=== PATIENT | male | born 1940 | race Caucasian/White ===

== ENCOUNTER 2016-07-14 09:03 | Inpatient (IN) | payer MEDICARE, MEDICAID ==
[~2016-07-14] VITALS: Ht 170.2 cm; Wt 90.4 kg
[2016-07-14] MEDS: FINASTERIDE 5 MG TAB PO SCH (09:00)
[2016-07-14] MEDS: ATENOLOL 50 MG TAB PO SCH (09:00)
[2016-07-14] MEDS: PANTOPRAZOLE 40MG TAB (PROTONIX) PO SCH (09:00)
[2016-07-14] MEDS: LOSARTAN 50 MG TAB PO SCH (09:00)
[~2016-07-14 09:03] MED LIST: ALBU17IN INH; ASPI81TA PO; ATEN50TA2 PO; ATOR1TAB21 PO; ATOR40TA PO; FENO160T10 PO; FENO48TA2 PO; INSUDET SC; LEVE1INJ5 SC; LOSA100T37 PO; NEXI40CA PO; NICOTINE 14 MG/24 HR TRANSDERMAL TD SCH; ONGL1TAB9 PO; RANI150T PO; VITA50003 PO; VITAE20CA PO
[2016-07-14] MEDS ORDERED: IPRATROPIUM 0.5MG/ALBUTEROL 2.5MG INH SOL UD 3ML (DUONEB)(J7620) As Ordered ONE (09:31)
[2016-07-14] MEDS ORDERED: ALBUTEROL SULFATE 2.5 MG/0.5 ML INH NEB SOLN As Ordered ONE ×2 (09:31→23:41)
[2016-07-14 09:52] LABS: ABG BASE EXCESS -2.1 (-2.0-2.0); ABG DEVICE NASAL CANN; ABG PARTIAL PRESSURE CO2 34.8 mmHg (35.0-45.0); ABG PARTIAL PRESSURE O2 81.6 mmHg (75.0-100.0); ABG STANDARD HCO3 22.7 MEQ/L (22.0-26.0); ABG TOTAL CO2 23.1 MEQ/L (23.0-31.0); ABG pH (ARTERIAL) 7.419 UNITS (7.350-7.450)
[2016-07-14 10:01] LABS: BASO % 0.6 % (0.0-1.0); EOS % 0.3 % (0.0-3.0); LARGE UNSTAINED CELL # 0.2 K/mm3 (0.0-0.4); LARGE UNSTAINED CELL % 2.1 % (0.0-4.0); LYMPH # 0.8 K/mm3 (1.5-4.5); LYMPH % 10.3 % (24.0-44.0); MEAN CORPUSCULAR HEMOGLOBIN 31.6 pg (27.0-33.0); MEAN CORPUSCULAR HGB CONC 35.7 g/dl (32.0-36.5); MEAN CORPUSCULAR VOLUME 88.7 fl (80.0-96.0); MONO # 0.3 K/mm3 (0.0-0.8); NEUTROPHILS # 6.6 K/mm3 (1.8-7.7); NEUTROPHILS % 82.8 % (36.0-66.0); PLATELET COUNT, AUTOMATED 323 k/mm3 (150-450); RED CELL DISTRIBUTION WIDTH 14.5 % (11.5-14.5)
[2016-07-14 10:18] LABS: ALBUMIN 3.3 GM/DL (3.2-5.2); ALBUMIN/GLOBULIN RATIO 0.97 (1.00-1.93); BILIRUBIN,DIRECT 0.3 MG/DL (0.0-0.2); BILIRUBIN,TOTAL 0.8 MG/DL (0.2-1.0); CALCIUM LEVEL 8.5 MG/DL (8.8-10.2); CREATININE FOR GFR 1.35 MG/DL (0.70-1.30); GLOMERULAR FILTRATION RATE 54.8 (>42); POTASSIUM SERUM 4.6 MEQ/L (3.5-5.1); TOTAL PROTEIN 6.7 GM/DL (6.4-8.2)
--- NOTE | 2016-07-14 10:19 | REP ---
Portable chest x-ray: Sitting AP view. History: Shortness of breath. Comparison study: June 16, 2016. Findings: There is a extensive perihilar infiltrate pattern in the left lung. Heart is mildly prominent unchanged. No pleural effusion is seen. There is slight cephalization of the pulmonary vasculature. Impression: Fairly dense and extensive left perihilar infiltrate, probable pneumonia. Asymmetric pulmonary edema is considered a less likely possibility. Signed by Abe Lee MD 07/14/2016 10:24 A
[2016-07-14] MEDS ORDERED: ASPIRIN 81 MG CHEW TABLET As Ordered ONE (10:31)
[2016-07-14] MEDS ORDERED: FUROSEMIDE 20 MG/2 ML VIAL (J1940) As Ordered ONE (10:31)
[2016-07-14] MEDS ORDERED: MOXIFLOXACIN 400 MG/250 ML IV BAG (AVELOX) (J2280) As Ordered ONE (10:31)
[2016-07-14 11:01] LABS: INR 1.04
[2016-07-14] MEDS ORDERED: ASPI81CH3 PO (11:15)
[2016-07-14] MEDS ORDERED: SPIR1CAP INH (11:15)
[2016-07-14] MEDS ORDERED: ATOR1TAB21 PO (11:15)
[2016-07-14] MEDS ORDERED: FINA5TAB2 PO (11:15)
[2016-07-14] MEDS ORDERED: LOSA100T37 PO (11:15)
[2016-07-14] MEDS ORDERED: ADV250INH INH (11:15)
[2016-07-14] MEDS ORDERED: VITA100066 PO (11:15)
[2016-07-14] MEDS ORDERED: LEVE1INJ5 SC ×2 (11:46)
[2016-07-14] MEDS ORDERED: METF500T PO (11:46)
[2016-07-14] MEDS ORDERED: DRIS50002 PO (11:48)
[2016-07-14] MEDS ORDERED: NITROGLYCERIN 0.4 MG SUBL TABLET SL PRN (13:15)
[2016-07-14] MEDS ORDERED: DEXTROSE 50% 50 ML SYRINGE IV PRN (13:15)
[2016-07-14] MEDS ORDERED: GLUCOSE 4 GM CHEW TABLET PO PRN (13:15)
[2016-07-14] MEDS ORDERED: GLUCAGON FOR INJ 1 MG VIAL (J1610) SC PRN (13:15)
[2016-07-14] MEDS ORDERED: ACETAMINOPHEN 500 MG TAB PO PRN (13:15)
[2016-07-14] MEDS ORDERED: NS 1,000 ML IV SCH (13:45)
--- NOTE | 2016-07-14 13:57 | CR ---
DATE OF CONSULTATION: 07/14/2016 REFERRING PHYSICIANS: Irene Hebert MD, and YASEMIN Law INDICATION: Acute myocardial infarction. HISTORY OF PRESENT ILLNESS: Mr. Zambrano is known to me. He is a 75-year-old man who was actually discharged from my practice earlier this year because of noncompliance and inability to keep followup office visits. He does not have a history of established coronary artery disease, though. The patient tells me that he has not been feeling well for about 4 or 5 days. He felt that he was more short of breath, had cold chills, and was diaphoretic, and eventually last night developed episode of heavy chest discomfort that was retrosternal and also left from the sternum without obvious radiation. It was present on and off for about an hour and associated with significant dyspnea. During the night, though , he could not sleep. He was coughing. He was nauseated at times; and eventually in the morning hours, on top of everything, he ran out of oxygen. Eventually, he was brought by family after previously refused to come last night. On the initial evaluation, he was quite hypoxic, but he quickly improved with administration of oxygen by nasal cannula. The chest x-ray was suggestive of left upper lobe infiltrate and also some degree of vascular distribution. His brain natriuretic peptide (BNP) was mildly elevated, and his troponin was also elevated at 2.87 with total CK 228 and CK-MB 8.0. Interventional cardiology in [facility] was contacted, but they turned the patient down because of concomitant pneumonia, hyponatremia, and renal insufficiency. At the time of my evaluation, the patient tells me that he is not feeling well, but he is feeling much better compared to previously. He already received aspirin, single dose of intravenous (IV) Lasix, and antibiotics. He is laying flat in the emergency room (ER) bed. Denies any chest discomfort since last night. Continues to feel short of breath and reports feeling "not well." He cannot further specify. PAST MEDICAL HISTORY: 1. Hypertension. 2. Dyslipidemia. 3. Type 2 diabetes. 4. Longstanding history of chest discomfort. He underwent nuclear stress test in 2012 and then again in September 2015. Both times, it was negative for ischemia. He subsequently was lost to followup due to his noncompliance. 5. Chronic obstructive pulmonary disease (COPD). OUTPATIENT MEDICATIONS: According to our records, he was taking: - aspirin 81 a day - atenolol 50 a day - Lipitor 40 a day - insulin - losartan/hydrochlorothiazide 100/25 - proton pump inhibitor (PPI) - Proventil - Onglyza He does not have his medications on him, so I am not certain whether this is completely accurate. He reports allergies to PENICILLIN which gives him hives, and ANGIOTENSIN-CONVERTING ENZYME ([place]) INHIBITORS made him cough. SURGICAL HISTORY: Is positive for appendectomy and cataract surgery. FAMILY HISTORY: Father in his 70s of myocardial infarction. His son has migraines, and mother young of leukemia. SOCIAL HISTORY: The patient is father of four children, and one of his daughters is at bedside. He is retired and but has significant other. He has been a heavy smoker, 1-2 packs a day for years. On the review of systems, there is no recent fever, but he did have chills and sweats. He also has had mostly nonproductive cough. Chest discomfort was present last night but not since. He also reports some nausea but no thanh vomiting. No diarrhea. No abdominal pain. No syncopal events. No peripheral edema. He does report recent episodes of syncope, though. He also needs a walker for ambulation due to generalized weakness. PHYSICAL EXAMINATION: Mr. Lawson Zambrano is an elderly man who appears at least his age. He does not appear to be in any distress. Blood pressure was 130/65, heart rate in the 60s. He was afebrile. Saturation was in low 90s on oxygen by nasal cannula. His jugular venous pressure (JVP) does not appear elevated. His lungs are surprisingly clear to auscultation. I do not appreciate any crackles, rhonchi, or wheezing, and the air movement is decent. Heart examination: Somewhat muffled heart sound due to his COPD. No murmur, rub, or gallop is appreciated. Abdomen is obese but soft and nontender. No organomegaly. There is no peripheral edema. His peripheral pulses are very poor. Neurologically, he seems alert and oriented and mostly appropriate. I do not appreciate any focal weakness. 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 He has normal liver function tests. CK and CK-MB as per history of present illness (HPI). His BNP was 576 and albumin was 3.3. CBC reveals WBC count 8.0, hemoglobin 8.4, hematocrit 23.5, and platelet count 323. INR is 1.0. Electrocardiogram (ECG) reveals presence of sinus rhythm with first-degree AV block, possible old inferior wall myocardial infarction, and no ST-T shift. Chest x-ray reveals borderline cardiomegaly. There is an infiltrate in left upper lobe, and I suspect this could be actually an atypical manifestation of pulmonary edema because there is a vascular distribution. No pleural effusions. ASSESSMENT AND PLAN: Mr. Zambrano is a 75-year-old man who has numerous risk factors for coronary artery disease (CAD), including hypertension, type 2 diabetes, hyperlipidemia, and longstanding history of smoking, who presents with [id number] myocardial infarction. But he is also significantly anemic. There is underlying renal insufficiency and hyponatremia. Interventional cardiology was contacted, but they felt that the patient is to be first medically stabilized before coronary angiogram can be performed. He already received aspirin, and I would give him additional doses for total 325 mg daily. I also recommend anticoagulation. Probably Lovenox is the most appropriate choice here. I do not recommend administration of Plavix due to severe anemia; and even though his stools are guaiac negative, I am afraid that the risk of bleeding is quite high. Also, there is a possibility that he may need open heart surgery. He is currently pain-free. Provided there is a recurrence of chest discomfort, this can be reconsidered, and Plavix can be administered together with PPIs. I would continue current dose of beta faith. It appears that his blood pressure and heart rate are well-controlled. He received 20 mg of Lasix intravenous (IV), and his lungs at this point are clear. I do not appreciate any obvious congestive heart failure by physical examination now, but I cannot rule out that he was in heart failure when he presented to the ER. This all represents fairly high risk features, and I think a coronary angiogram will follow provided he does not drop his hemoglobin more, and there will be any evolution clinically that is unfavorable. As far as hyponatremia is concerned, is known to be chronic. 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 Apparently, he was reporting drinking more than 30 cups of coffee a day. In any case, it should be pointed out that he should not be given any thiazide diuretics. As far as the anemia is concerned, the etiology is unclear. He has guaiac-negative stools. He denies any history of bleeding. He has iron studies from April that revealed relatively mild iron deficiency. At this point, the preference is to make sure he remains stable. Further evaluation can be accomplished later. PPI to be administered. He has been on high-dose statin, and this should be continued. The patient remains seriously ill, and his prognosis is guarded. I had a long discussion with him and his daughter. Even though we formally discharged the patient from our care, I provide emergency care over the weekend. ANGELA
[2016-07-14] MEDS: methylPREDNISolone INJ 125 MG/2 ML VIAL (J2930) IV SCH ×2 (16:00→23:27)
[2016-07-14] MEDS ORDERED: PANTOPRAZOLE 40MG TAB (PROTONIX) As Ordered ONE (16:50)
[2016-07-14] MEDS ORDERED: methylPREDNISolone INJ 125 MG/2 ML VIAL (J2930) As Ordered ONE ×2 (16:50→23:25)
[2016-07-14] MEDS: HumaLOG INSULIN (NovoLOG) PER UNIT SC SCH ×2 (17:30→20:49)
--- NOTE | 2016-07-14 19:13 | ECGEPIP ---
Stationary ECG Study [facility] [place] - ED Test Date: 2016-07-14 Pat Name: TAMIA AUGUSTIN Department: Room: - Gender: M Grinder: lindsay : 1940 Requested By: Irene Hebert Order Number: [id number] Reading MD: Albert Viramontes Measurements Intervals [place] Rate: 81 P: 16 CO: 219 QRS: -7 QRSD: 98 T: 33 QT: 353 QTc: 412 Interpretive Statements SINUS RHYTHM WITH FIRST DEGREE AV BLOCK NONSPECIFIC ST & T-WAVE ABNORMALITY SIMILAR TO 06/16/16 Electronically Signed On 07-14-2016 19:13:02 EST by Albert Viramontes
[2016-07-14 20:00] VITALS: BP 144/78
[2016-07-14] MEDS: IPRATROPIUM 0.5MG/ALBUTEROL 2.5MG INH SOL UD 3ML (DUONEB)(J7620) NEB SCH (20:00)
[2016-07-14] MEDS ORDERED: ATORVASTATIN 20 MG TAB As Ordered ONE (20:43)
[2016-07-14] MEDS ORDERED: LEVEMIR (INSULIN DETEMIR) 1 UNITS/0.01ML As Ordered ONE (20:44)
[2016-07-14] MEDS ORDERED: HumaLOG INSULIN (NovoLOG) PER UNIT As Ordered ONE (20:45)
[2016-07-14] MEDS: raNITIdine SYRUP 150 MG/10 ML UDC PO SCH (20:48)
[2016-07-14] MEDS: LEVEMIR (INSULIN DETEMIR) 1 UNITS/0.01ML SC SCH (20:49)
[2016-07-14] MEDS: CEPACOL LOZENGE PO PRN (20:49)
[2016-07-14] MEDS: ADVAIR DISKUS 250/50 INH PWD INH SCH (20:56)
[2016-07-14] MEDS ORDERED: ATORVASTATIN 20 MG TAB PO SCH (21:00)
[2016-07-14] MEDS: ALBUTEROL SULFATE 2.5 MG/0.5 ML INH NEB SOLN NEB PRN (23:52)
[2016-07-14 23:54] VITALS: O2SAT 96
[2016-07-15] VITALS (25 sets, daily range): BP systolic 115–186; BP diastolic 58–91; O2SAT 96
[2016-07-15] MEDS: IPRATROPIUM 0.5MG/ALBUTEROL 2.5MG INH SOL UD 3ML (DUONEB)(J7620) NEB SCH ×4 (02:00→19:50)
[2016-07-15] MEDS ORDERED: ALBUTEROL SULFATE 2.5 MG/0.5 ML INH NEB SOLN As Ordered ONE (03:57)
[2016-07-15] MEDS: ALBUTEROL SULFATE 2.5 MG/0.5 ML INH NEB SOLN NEB PRN ×2 (04:01→17:06)
[2016-07-15] MEDS ORDERED: ENOXAPARIN 100MG/1ML SYRINGE (J1650) As Ordered ONE (04:57)
[2016-07-15] MEDS ORDERED: METOPROLOL SUCC *XL* 25MG TAB (TopROL *XL*) As Ordered ONE (04:57)
[2016-07-15] MEDS ORDERED: METOPROLOL SUCC *XL* 25MG TAB (TopROL *XL*) PO ONE (05:00)
[2016-07-15] MEDS: ENOXAPARIN 100MG/1ML SYRINGE (J1650) SC SCH ×2 (05:01→18:01)
[2016-07-15] MEDS: HumaLOG INSULIN (NovoLOG) PER UNIT SC SCH ×4 (07:30→20:59)
[2016-07-15 07:40] LABS: BASO % 0.4 % (0.0-1.0); EOS % 0.3 % (0.0-3.0); LARGE UNSTAINED CELL % 0.7 % (0.0-4.0); LYMPH # 0.5 K/mm3 (1.5-4.5); LYMPH % 8.8 % (24.0-44.0); MEAN CORPUSCULAR HEMOGLOBIN 30.3 pg (27.0-33.0); MEAN CORPUSCULAR HGB CONC 34.6 g/dl (32.0-36.5); MEAN CORPUSCULAR VOLUME 87.8 fl (80.0-96.0); MONO # 0.2 K/mm3 (0.0-0.8); MONO % 3.8 % (0.0-5.0); NEUTROPHILS # 4.4 K/mm3 (1.8-7.7); PLATELET COUNT, AUTOMATED 290 k/mm3 (150-450); RED CELL DISTRIBUTION WIDTH 15.5 % (11.5-14.5); WHITE BLOOD COUNT 5.1 K/mm3 (4.0-10.0)
[2016-07-15] MEDS ORDERED: methylPREDNISolone INJ 125 MG/2 ML VIAL (J2930) As Ordered ONE (07:40)
[2016-07-15] MEDS ORDERED: HumaLOG INSULIN (NovoLOG) PER UNIT As Ordered ONE ×3 (07:41→15:15)
[2016-07-15] MEDS: methylPREDNISolone INJ 125 MG/2 ML VIAL (J2930) IV SCH ×2 (07:50→20:03)
[2016-07-15 08:07] LABS: ALBUMIN/GLOBULIN RATIO 0.91 (1.00-1.93); BILIRUBIN,TOTAL 0.6 MG/DL (0.2-1.0); CALCIUM LEVEL 8.2 MG/DL (8.8-10.2); CREATININE FOR GFR 1.54 MG/DL (0.70-1.30); GLOMERULAR FILTRATION RATE 47.1 (>42); MAGNESIUM LEVEL 1.8 MG/DL (1.8-2.4); POTASSIUM SERUM 4.7 MEQ/L (3.5-5.1); TOTAL PROTEIN 6.3 GM/DL (6.4-8.2)
[2016-07-15] MEDS ORDERED: IPRATROPIUM 0.5MG/ALBUTEROL 2.5MG INH SOL UD 3ML (DUONEB)(J7620) As Ordered ONE ×2 (08:09→14:01)
[2016-07-15] MEDS: ADVAIR DISKUS 250/50 INH PWD INH SCH ×2 (08:12→21:00)
[2016-07-15] MEDS ORDERED: LEVEMIR (INSULIN DETEMIR) 1 UNITS/0.01ML SC SCH (09:00)
[2016-07-15] MEDS ORDERED: PANTOPRAZOLE 40MG TAB (PROTONIX) As Ordered ONE (09:31)
[2016-07-15] MEDS ORDERED: ASPIRIN 325 MG TAB As Ordered ONE (09:32)
[2016-07-15] MEDS ORDERED: LEVEMIR (INSULIN DETEMIR) 1 UNITS/0.01ML As Ordered ONE (09:33)
[2016-07-15] MEDS: ASPIRIN 325 MG TAB PO SCH (09:36)
[2016-07-15] MEDS: ATENOLOL 50 MG TAB PO SCH (09:36)
[2016-07-15] MEDS: FINASTERIDE 5 MG TAB PO SCH (09:36)
[2016-07-15] MEDS: LOSARTAN 50 MG TAB PO SCH (09:36)
[2016-07-15] MEDS: PANTOPRAZOLE 40MG TAB (PROTONIX) PO SCH (09:36)
[2016-07-15] MEDS: raNITIdine SYRUP 150 MG/10 ML UDC PO SCH ×2 (09:36→21:14)
[2016-07-15] MEDS ORDERED: MOXIFLOXACIN 400 MG/250 ML IV BAG (AVELOX) (J2280) As Ordered ONE (09:38)
[2016-07-15] MEDS: MOXIFLOXACIN HCL 400 MG in APPROPRIATE DILUENT 1 EA IV SCH (09:39)
[2016-07-15] MEDS ORDERED: FUROSEMIDE 40 MG/4 ML VIAL (J1940) IV ONE ×3 (11:15→19:15)
--- NOTE | 2016-07-15 11:16 | IPNPDOC ---
Assessment/Plan Date Seen The patient was seen on 07/15/16. Family Medicine Attending Note: Patient seen, examined, and d/w YASEMIN Black. Patient states he feels fairly well this morning except for some wheezing and he would like to have a fan blowing on his face. He denies SOB, chest pain , or abdominal pain. He had a BM this morning that was not bloody and not dark/ tarry - this was confirmed by his nurse. Patient appears fairly well but has multiple laboratory abnormalities - Hgb is trending down today with no obvious source of bleeding; BMs are nonbloody and abdominal exam is normal. Will give 2U pRBCs and recheck CBC tomorrow morning. Per Cardiology, will give lasix between units of blood. Hyponatremia persists and is a bit worse than yesterday - will increase rate of NS after blood is completed. Hyponatremia has been chronic since at least April with max sodium of 126 - will need to increase Na slowly and may need to do further investigation to determine cause of hyponatremia when he is more stable. He is receiving moxifloxacin for pneumonia; 1/2 blood cultures were positive for GPR which may be contaminate. Continue antibiotics and recheck blood cultures. (KES). Problems Problems: (1) NSTEMI (non-ST elevated myocardial infarction) Status: Acute Discussed With: Administrative Assistant Problem Specific Plan: Monitor Clinically, Repeat Labs Problem Text: Dr Duran is seeing the pt, recommends adjusting beta faith, will start Metoprolol tartrate 25 mg po Q6h with hold parameters. Cont with ASA 325 mg, Lovenox 100 mg BID, Lipitor (will change to High dose). [facility] has been contacted, recommend stabilizing pt prior to transfer. (2) Pneumonia Status: Acute Response to Treatment: Stable Problem Specific Plan: Monitor Clinically Problem Text: ON IV avelox D2, cont with nebs 1/2 blood cultures positive for gram positive rods. (3) Acute blood loss anemia Status: Acute Response to Treatment: Stable Problem Specific Plan: Monitor Clinically, Repeat Labs Problem Text: Hgb 7.2, consent obtained for transfusion, will transfuse 2 units PRBCs given Lasix IV 40 mg between units. (4) Hyponatremia Status: Acute Response to Treatment: Uncontrolled Problem Specific Plan: Monitor Clinically Problem Text: Will increase IVF rate due to failure of this to improve. (5) HTN (hypertension) Status: Chronic Response to Treatment: Stable Problem Specific Plan: Monitor Clinically Problem Text: Controlled on current medication regimen. (6) DM2 (diabetes mellitus, type 2) Status: Chronic Response to Treatment: Stable Problem Specific Plan: Monitor Clinically Problem Text: BS persistently high in 300s - 400s; this may be due to acute infection. If they continue to remain high, we may need to increase his dose of levemir. (7) Nicotine dependence Status: Chronic Problem Specific Plan: Monitor Clinically Problem Text: Enc cessation. (8) COPD (chronic obstructive pulmonary disease) Status: Chronic Response to Treatment: Stable Problem Specific Plan: Monitor Clinically Problem Text: Advair, nebs. (9) Positive blood culture Status: Acute Problem Text: 1/2 blood cultures positive for gram positive rods - could be contaminate. WBCs stable and no fevers overnight. - Recheck blood cultures - Continue avelox Plan / VTE VTE Prophylaxis Ordered?: Yes Subjective Review of Systems CC/HPI Pt without new concerns. His and dgt in law are at bedside. Constitutional: Reports: Chills, Denies: Fever ENT: Denies: Head Aches Pulmonary: Reports: Cough (occ sputum production), Dyspnea Cardiovascular: Reports: Chest Pain (worse with coughing), Denies: Palpitations Gastrointestinal: Denies: Diarrhea, Nausea, Vomiting Neurological: Reports: Weakness Psych: Reports: Mood Normal Objective Physical Examination General Exam: Positive: Alert, No Acute Distress ENT Exam: Positive: Mucous membr. moist/pink Chest Exam: Positive: Rhonchi (diminished throughout) Heart Exam: Positive: Rate Normal, Negative: Murmurs Abdomen Exam: Positive: Normal bowel sounds, Soft, Negative: Tenderness Extremity Exam: Negative: Edema Vital Signs/I&O Vital Signs Date Time Temp Pulse Resp B/P Pulse Ox O2 Delivery O2 Flow Rate FiO2 07/15/16 09:36 115/78 07/15/16 09:36 100 07/15/16 07:50 96.9 22 94 Nasal Cannula 2.0 I&O- Last 24 Hours up to 6 AM 07/15/16 06:00 Intake Total 240 ml Output Total 1000 ml Balance -760 ml Laboratory Data Labs 24H Laboratory Tests 2 07/14/16 13:58: Creatine Kinase MB 8.1H, Creatine Kinase MB Relative Index 3.76, Total Creatine Kinase 215, Troponin I 4.09#*H 07/14/16 20:39: Bedside Glucose (Misc Panel) 416H 07/14/16 20:44: Creatine Kinase MB 8.6H, Creatine Kinase MB Relative Index 3.78, Total Creatine Kinase 227, Troponin I 2.49#*H 07/14/16 23:10: Bedside Glucose (Misc Panel) 411H 07/15/16 07:20: Bedside Glucose (Misc Panel) 371H 07/15/16 07:28: Blood Urea Nitrogen 43H, Creatinine 1.54H, Sodium Level 122L, Potassium Level 4.7, Chloride Level 88L, Carbon Dioxide Level 21, Calcium Level 8.2L, Aspartate Amino Transf (AST/SGOT) 22, Alanine Aminotransferase (ALT/SGPT) 27, Total Creatine Kinase 242, Alkaline Phosphatase 47, Total Bilirubin 0.6, Total Protein 6.3L, Albumin 3.0L, Albumin/Globulin Ratio 0.91L, Anion Gap 13, White Blood Count 5.1, Red Blood Count 2.38L, Hemoglobin 7.2L, Hematocrit 20.9L, Mean Corpuscular Volume 87.8, Mean Corpuscular Hemoglobin 30.3, Mean Corpuscular Hemoglobin Concent 34.6, Red Cell Distribution Width 15.5H, Platelet Count 290, Neutrophils (%) (Auto) 86.0H, Lymphocytes (%) (Auto) 8.8L, Monocytes (%) (Auto) 3.8, Eosinophils (%) (Auto) 0.3, Basophils (%) (Auto) 0.4, Neutrophils # (Auto) 4.4, Lymphocytes # (Auto) 0.5L, Monocytes # (Auto) 0.2, Eosinophils # (Auto) 0.0 , Basophils # (Auto) 0.0, Creatine Kinase MB 10.6H, Creatine Kinase MB Relative Index 4.38H, Glomerular Filtration Rate 47.1, Large Unclassified Cells # 0.0, Large Unclassified Cells % 0.7, Magnesium Level 1.8, Troponin I 2.23*H CBC/BMP Laboratory Tests 07/15/16 07:28 Calcium Level 8.2 L, Aspartate Amino Transf (AST/SGOT) 22, Alanine Aminotransferase (ALT/SGPT) 27, Total Creatine Kinase 242, Alkaline Phosphatase 47, Total Bilirubin 0.6, Total Protein 6.3 L, Albumin 3.0 L, Red Blood Count 2.38 L, Mean Corpuscular Volume 87.8, Mean Corpuscular Hemoglobin 30.3, Mean Corpuscular Hemoglobin Concent 34.6, Red Cell Distribution Width 15.5 H, Neutrophils (%) (Auto) 86.0 H, Lymphocytes (%) (Auto) 8.8 L, Monocytes (%) (Auto ) 3.8, Eosinophils (%) (Auto) 0.3, Basophils (%) (Auto) 0.4, Neutrophils # (Auto ) 4.4, Lymphocytes # (Auto) 0.5 L, Monocytes # (Auto) 0.2, Eosinophils # (Auto) 0.0, Basophils # (Auto) 0.0 FSBS Laboratory Tests Test 07/14/16 20:39 07/14/16 23:10 07/15/16 07:20 Range/Units Bedside Glucose (Misc Panel) 416 411 371 83-110 MG/DL Microbiology Microbiology 07/14/16 Blood Culture - Preliminary, Resulted No growth after 24 hours . All specim... 07/14/16 Blood Culture - Preliminary, Resulted 07/14/16 Influenza Virus Type A Antigen - Final, Complete 07/14/16 Influenza Virus Type B Antigen - Final, Complete RICHARD MORE PA-C Jul 15, 2016 11:16 MARIA LUISA WHITE MD Jul 15, 2016 13:43
[2016-07-15] MEDS: CEPACOL LOZENGE PO PRN (12:01)
[2016-07-15] MEDS ORDERED: METOPROLOL TART 25 MG TABLET As Ordered ONE (12:46)
[2016-07-15] MEDS: METOPROLOL TART 25 MG TABLET PO SCH ×2 (12:50→18:01)
[2016-07-15] MEDS ORDERED: ONDANSETRON 4MG/2ML VIAL (J2405) IV PRN (13:00)
[2016-07-15] MEDS ORDERED: HumaLOG INSULIN (NovoLOG) PER UNIT SC ONE ×2 (15:30→21:00)
--- NOTE | 2016-07-15 16:38 | EDDOCDS ---
Physician Documentation [facility] Name: Lawson Zambrano Age: 75 yrs Sex: Male : 1940 Arrival Date: 07/14/2016 Time: 09:03 Bed Admit Hold Private MD: Disposition: 07/14 12:32 Critical Care:. ml Disposition: 07/14/16 12:32 Hospitalization ordered by Bharat Muse for Inpatient Admission. Preliminary diagnosis are Chronic obstructive pulmonary disease with (acute) exacerbation, Pneumonia, unspecified organism, Acute systolic (congestive) heart failure, Anemia, unspecified, Hypo-osmolality and hyponatremia, Non-ST elevation (NSTEMI) myocardial infarction. - Bed requested for M ICU. - Status is Inpatient Admission. deg - Condition is Stable. - Problem is new. - Symptoms are unchanged. Historical: - Allergies: PENICILLINS (Hives); - Home Meds: 1. losartan-hydrochlorothiazide 100-25 mg oral tab 0.5 tab once daily 2. aspirin 81 mg Oral tab 2 tabs once daily (Last dose: 07/13/2016) 3. atenolol 50 mg Oral tab 1 tab once daily (Last dose: 07/13/2016) 4. atorvastatin 20 mg oral tab 1 tab once daily (Last dose: 07/13/2016) 5. ranitidine HCl 150 mg Oral tab 1 tab once daily (Last dose: 07/13/2016) 6. Vitamin D2 1,000 unit oral cap (Last dose: 07/13/2016) 7. metformin 500 mg Oral tab 0.5 tab 2 times per day (Last dose: 07/13/2016) 8. finasteride 5 mg oral tab 1 tab once daily 9. Advair Diskus 250-50 mcg/dose Inhl dsdv 1 puff 2 times per day (Last dose: 07/13/2016) - PMHx: CAD; Diabetes - IDDM: controlled; Emphysema; GERD; Hypercholesterolemia; Hypertension; Nicotine Abuse; Polydispsia; Stroke; - PSHx: Appendectomy; - Social history: Smoking status: No barriers to communication noted, The patient speaks fluent Faroese, Speaks appropriately for age, Smoking status: Patient uses tobacco products, heavy tobacco smoker. - Family history: Not pertinent. - : The pt / caregiver states he / she is not on anticoagulants. Home medication list is obtained from family members. - Exposure Risk Screening:: None identified. Vital Signs: 09:12 BP 134 / 86 (auto/); jo3 09:13 Pulse 80 MON; Pulse Ox 93% ; jo3 09:14 BP 134 / 86; Pulse 80; Resp 20; Temp 98.5(TE); Pulse Ox 91% 8% ; Pain 0/10; nb2 09:27 BP 128 / 60 (auto/); jo3 09:27 Pulse 80 MON; Pulse Ox 94% ; jo3 09:28 Weight 88 kg / 194.01 lbs; Height 5 ft. 7 in. (170.18 cm); dem1 09:42 BP 115 / 57 (auto/); jo3 09:42 Pulse 82 MON; Pulse Ox 83% ; jo3 09:57 BP 127 / 60 (auto/); jo3 09:57 Pulse 86 MON; Pulse Ox 91% ; jo3 10:12 BP 120 / 55 (auto/); jo3 10:12 Pulse 86 MON; Pulse Ox 93% ; jo3 10:27 BP 121 / 58 (auto/); jo3 10:27 Pulse 84 MON; Pulse Ox 95% ; jo3 10:42 BP 125 / 63 (auto/); jo3 10:42 Pulse 86 MON; Pulse Ox 92% ; jo3 10:56 Pulse 86 MON; Pulse Ox 93% ; jo3 10:57 BP 114 / 55 (auto/); jo3 11:12 BP 122 / 62 (auto/); jo3 11:12 Pulse 82 MON; Pulse Ox 89% ; jo3 11:27 BP 116 / 63 (auto/); jo3 11:27 Pulse 78 MON; Pulse Ox 90% ; jo3 11:42 BP 110 / 59 (auto/); jo3 11:42 Pulse 76 MON; Pulse Ox 90% ; jo3 11:57 BP 113 / 62 (auto/); jo3 11:57 Pulse 74 MON; Pulse Ox 90% ; jo3 12:12 BP 115 / 63 (auto/); jo3 12:12 Pulse 72 MON; Pulse Ox 92% ; jo3 12:26 Pulse 74 MON; Pulse Ox 92% ; jo3 12:27 BP 124 / 66 (auto/); jo3 12:42 BP 119 / 68 (auto/); jo3 12:42 Pulse 76 MON; Pulse Ox 93% ; jo3 12:57 BP 128 / 68 (auto/); jo3 12:57 Pulse 72 MON; Pulse Ox 94% ; jo3 13:12 BP 126 / 70 (auto/); jo3 13:12 Pulse 72 MON; Pulse Ox 94% ; jo3 13:27 BP 120 / 65 (auto/); jo3 13:27 Pulse 72 MON; Pulse Ox 93% ; jo3 13:42 BP 124 / 65 (auto/); jo3 13:42 Pulse 74 MON; Pulse Ox 96% ; jo3 14:12 BP 124 / 62 (auto/); jo3 14:12 Pulse 76 MON; jo3 14:27 BP 126 / 68 (auto/); jo3 14:27 Pulse 72 MON; Pulse Ox 95% ; jo3 14:42 BP 115 / 60 (auto/); jo3 14:42 Pulse 74 MON; Pulse Ox 95% ; jo3 14:57 BP 118 / 63 (auto/); jo3 14:57 Pulse 76 MON; Pulse Ox 94% ; jo3 15:27 BP 132 / 70 (auto/); jo3 15:27 Pulse 80 MON; Pulse Ox 93% ; jo3 15:42 BP 136 / 67 (auto/); jo3 15:42 Pulse 84 MON; Pulse Ox 96% ; jo3 15:57 BP 135 / 71 (auto/); jo3 15:57 Pulse 78 MON; Pulse Ox 94% ; jo3 16:12 BP 134 / 76 (auto/); jo3 16:12 Pulse 82 MON; Pulse Ox 94% ; jo3 16:27 BP 137 / 72 (auto/); jo3 16:27 Pulse 78 MON; Pulse Ox 92% ; jo3 16:42 BP 138 / 78 (auto/); jo3 16:42 Pulse 88 MON; jo3 16:57 BP 131 / 59 (auto/); jo3 16:57 Pulse 84 MON; Pulse Ox 96% ; jo3 17:12 BP 132 / 67 (auto/); jo3 17:12 Pulse 82 MON; Pulse Ox 96% ; jo3 17:27 BP 129 / 61 (auto/); jo3 17:27 Pulse 80 MON; Pulse Ox 97% ; jo3 17:42 BP 117 / 56 (auto/); jo3 17:42 Pulse 80 MON; Pulse Ox 96% ; jo3 17:57 BP 137 / 65 (auto/); jo3 17:57 Pulse 80 MON; Pulse Ox 96% ; jo3 18:12 BP 141 / 69 (auto/); jo3 18:12 Pulse 80 MON; Pulse Ox 96% ; jo3 18:27 BP 140 / 68 (auto/); jo3 18:27 Pulse 82 MON; Pulse Ox 94% ; jo3 18:42 BP 137 / 68 (auto/); jo3 18:42 Pulse 82 MON; Pulse Ox 97% ; jo3 09:28 Body Mass Index 30.39 (88.00 kg, 170.18 cm) dem1 MDM: 09:26 IV Saline Lock ordered. ml 09:26 Principal Engineer/Pulse Ox/q 15 min VS ordered. ml 09:26 Rhythm Strip to chart ordered. ml 09:26 Albuterol 5 mg Nebulizer once ordered. ml 09:26 Albuterol-Ipratropium 3 ml Inhalation once ordered. ml 09:26 Call Respiratory ordered. ml 09:26 -Blood Culture (Adults Only), peripheral from different site, or from device/port/PICC ml etc. if present ordered. 09:26 Call Respiratory ordered. ml 09:27 ECG WITH READING ER PHYS+CARDIAG ordered. EDMS 09:27 CBC with Diff Ordered. EDMS 09:27 MED Profile Ordered. EDMS 09:27 BNP Ordered. EDMS 09:27 CIP Ordered. EDMS 09:27 Troponin Ordered. EDMS 09:27 -Arterial Blood Gas Ordered. EDMS 09:27 Liver Profile Ordered. EDMS 09:27 -Blood Culture Ordered. EDMS 09:27 -Influenza A&B Rapid Antigen - Nose Ordered. EDMS 09:33 Chest, 1 View Ordered. EDMS 09:34 Call Respiratory complete. ar3 09:34 Call Respiratory complete. ar3 09:36 -Blood Culture (Adults Only), peripheral from different site, or from device/port/PICC ar3 etc. if present complete. 09:38 BLOOD CULTURES Ordered. EDMS 10:21 Financial registration complete. lg 10:22 CBC with Diff Reviewed. ml 10:22 BNP Reviewed. ml 10:22 -Arterial Blood Gas Reviewed. ml 10:22 -Influenza A&B Rapid Antigen - Nose Reviewed. ml 10:25 MED Profile Reviewed. ml 10:25 CIP Reviewed. ml 10:25 Troponin Reviewed. ml 10:25 Liver Profile Reviewed. ml 10:27 Aspirin Chewable Tablet 324 mg PO once ordered. ml 10:28 Furosemide 20 mg IVP once ordered. ml 10:28 Moxifloxacin 400 mg IV at 400 mg/hr once over 60 mins ordered. ml 10:45 Type & Screen Ordered. EDMS 10:46 PT/INR Ordered. EDMS 10:46 PTT Ordered. EDMS 10:57 BED REQUEST+ADM ordered. EDMS 10:59 [facility] [place] [facility] Payment Agreement was scanned into [employer] and attached to record. lg 13:22 Admission / Observation Status ordered. EDMS 13:22 ECHOCARD,DOPPLER/COLOR FLOW ordered. EDMS 13:22 CONSISTENT CARBOHYDRATES ordered. EDMS 13:23 CARDIAC INJURY PROFILE Ordered. EDMS 13:23 CARDIAC INJURY PROFILE Ordered. EDMS 13:23 TROPONIN Ordered. EDMS 13:23 TROPONIN Ordered. EDMS 16:16 Atenolol 50 mg PO once ordered. jo3 16:16 Finasteride (Proscar) 5 mg PO once ordered. jo3 16:16 Nicotine Patch 14 mg/24 hr 14 mg Transdermal once ordered. jo3 16:16 Losartan 50 mg PO once ordered. jo3 17:37 Pantoprazole 40 mg PO once ordered. jo3 17:37 Solu-MEDROL 60 mg IVP once ordered. jo3 19:05 Acetaminophen Tablet 1000 mg PO once ordered. jo3 19:31 CBC WITH DIFFERENTIAL Ordered. EDMS 19:31 CARDIAC INJURY PROFILE Ordered. EDMS 19:32 TROPONIN Ordered. EDMS 20:47 Fingerstick Blood Sugar Ordered. EDMS 01/ 03:05 COMPLETE COMPHRENSIVE METABOLI Ordered. EDMS 03:05 MAGNESIUM LEVEL Ordered. EDMS 04:40 ELECTROCARDIOGRAM ADULT ordered. EDMS 07:42 Fingerstick Blood Sugar Ordered. EDMS 10:59 COMPLETE BLOOD COUNT Ordered. EDMS 11:00 PACKED CELLS Ordered. EDMS 12:15 Fingerstick Blood Sugar Ordered. EDMS 13:00 T-Sheet-- Draft Copy was scanned into [employer] and attached to record. gb 14:04 BLOOD CULTURES Ordered. EDMS 15:01 Fingerstick Blood Sugar Ordered. EDMS 15:52 Atropine 1 mg IVP once ordered. br1 15:52 ED course: Called to respond to patient's bradycardia and decreased responsive. Patient br1 DNR/DNI. Heart rate 48. Atropine 1 mg IV given with good effect, patient now responsive. Dr. Franks has arrived to assume care of rapid response and patient is being taken to ICU.. 15:53 Fingerstick Blood Sugar Ordered. EDMS Point of Care Testing: Blood Glucose: 15:46 Blood Glucose: 412 mg/dL; kc3 Ranges: Administered Medications: 07/14 09:20 Drug: Albuterol 5 mg [albuterol sulfate 2.5 mg/0.5 mL solution for nebulization (1 mL)] kt1 Route: Nebulizer; 09:43 Drug: Albuterol-Ipratropium 3 ml [ipratropium-albuterol 0.5 mg-3 mg(2.5 mg base)/3 mL kt1 nebulization soln (3 mL)] Route: Inhalation; 10:32 Drug: Aspirin 324 mg [aspirin 81 mg chewable tablet (4 tabs)] Route: PO; jo3 10:34 Drug: Furosemide 20 mg [furosemide 10 mg/mL injection solution (2 mL)] Route: IVP; jo3 Site: left hand; 10:38 Drug: Moxifloxacin 400 mg [moxifloxacin 400 mg/250 mL-sodium chloride(iso) intravenous jo3 piggyback] Route: IV; Rate: 400 mg/hr; Infused Over: 60 mins; Site: left hand; 11:46 Follow up: IV Status: Completed infusion jo3 16:20 Drug: Atenolol 50 mg [atenolol 25 mg tablet (2 tabs)] Route: PO; jo3 16:20 Drug: Finasteride (Proscar) 5 mg Route: PO; jo3 16:20 Drug: Nicotine Patch 14 mg/24 hr 14 mg Route: Transdermal; Site: right upper arm; jo3 16:20 Drug: Losartan 50 mg [losartan 25 mg tablet (2 tabs)] Route: PO; jo3 16:55 Drug: Pantoprazole 40 mg [pantoprazole 40 mg tablet,delayed release (1 tabs)] Route: PO;jo3 16:55 Drug: Solu-MEDROL 60 mg [Solu-Medrol 500 mg intravenous solution (60 mg)] Route: IVP; jo3 Site: right antecubital; 18:55 Drug: Acetaminophen 1000 mg [acetaminophen 500 mg tablet (2 tabs)] Route: PO; jo3 07/15 13:45 Drug: Atropine 1 mg [atropine 0.4 mg/mL injection solution (2.5 mL)] Route: IVP; Site: hs1 right forearm; Critical Care Time: 07/14 12:32 Critical care time: Bedside Care: 100 minutes, Consultation: 20 minutes, Family ml Intervention: 10 minutes. Total time: 130 minutes Signatures: Dispatcher [employer] EDMS Irene Hebert MD MD ml Driver, Cinthya, Departmental Buyer Unit deg Barnhardt, Allie, Reg Reg gb Ganjim, Marlae, Reg Reg lg Tone, Braxton, Departmental Buyer Unit ml3 Mary BentonRN RN jo3 Alphonso Keane MD MD br1 Irena Stevens, CHIEF AIRLINE RADIO OPERATOR CHIEF AIRLINE RADIO OPERATOR ar3 Dank, Jessica Oh RN RN sls2 Libia Dalton kt1 Zenobia Esposito RN hs1 The chart was reviewed and I authenticate all verbal orders and agree with the evaluation and treatment provided.Corrections: (The following items were deleted from the chart) 13:36 13:23 BLOOD CULTURES ordered. EDMS EDMS 07/15 03:04 07/14 19:31 COMPLETE COMPHRENSIVE METABOLI ordered. EDMS EDMS 07/15 03:04 00:03 MAGNESIUM LEVEL ordered. EDMS EDMS 11:00 TYPE & SCREEN ordered. EDMS EDMS Attachments: 07/14 10:59 [facility] Payment Agreement lg 07/15 13:00 T-Sheet-- Draft Copy gb MTDD
--- NOTE | 2016-07-15 16:38 | EDDOCDS ---
Nurse's Notes [facility] Name: Tamia Augustin Age: 75 yrs Sex: Male : 1940 Arrival Date: 07/14/2016 Time: 09:03 Bed Admit Hold Private MD: Diagnosis: Chronic obstructive pulmonary disease with (acute) exacerbation;Pneumonia, unspecified organism;Acute systolic (congestive) heart failure;Anemia, unspecified;Hypo-osmolality and hyponatremia;Non-ST elevation (NSTEMI) myocardial infarction Presentation: 07/14 09:07 Presenting complaint: EMS states: Pt is on home O2. Uses a concentrator at home and jo3 concentrator stopped working overnight. High 70s O2 sat on EMS arrival. SL 20g in left hand. Duo neb and 125mg Solu-Medrol given en route. O2 sat 94% at this time. Home O2 dose 2L. Suicide/Homicide risk assessment- the patient denies having any suicidal and/or homicidal ideations and does not present with any other emotional, behavioral or mental health complaints. 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 Transition of care: patient was not received from another setting of care. 09:07 Acuity: GLEN Level 3 jo3 09:07 Method Of Arrival: Ambulance jo3 09:20 Adult Sepsis Screening: The patient does not have new or worsening altered mentation. jo3 Patient's respiratory rate is less than 22. Systolic blood pressure is greater than 100. Patient has a qSOFA score of 0- Negative Sepsis Screen. Triage Assessment: 09:46 General: Appears in no apparent distress, Behavior is appropriate for age, cooperative, jo3 drowsy. Pain: Denies pain. Neurological: Level of Consciousness is awake, alert, Oriented to person, place, time. Cardiovascular: No deficits noted. Rhythm is sinus rhythm with unifocal PVCs. Respiratory: Onset: The symptoms/episode began/occurred gradually, Airway is patent Respiratory effort is even, unlabored, Breath sounds are coarse expiratory bilaterally. Breath sounds with crackles bilaterally. in left posterior lower lobe, right posterior middle lobe and right posterior lower lobe Reports shortness of breath cough that is productive. Derm: Skin is intact, Skin is dry, Skin is pale, Skin temperature is warm. Historical: - Allergies: PENICILLINS (Hives); - Home Meds: 1. losartan-hydrochlorothiazide 100-25 mg oral tab 0.5 tab once daily 2. aspirin 81 mg Oral tab 2 tabs once daily (Last dose: 07/13/2016) 3. atenolol 50 mg Oral tab 1 tab once daily (Last dose: 07/13/2016) 4. atorvastatin 20 mg oral tab 1 tab once daily (Last dose: 07/13/2016) 5. ranitidine HCl 150 mg Oral tab 1 tab once daily (Last dose: 07/13/2016) 6. Vitamin D2 1,000 unit oral cap (Last dose: 07/13/2016) 7. metformin 500 mg Oral tab 0.5 tab 2 times per day (Last dose: 07/13/2016) 8. finasteride 5 mg oral tab 1 tab once daily 9. Advair Diskus 250-50 mcg/dose Inhl dsdv 1 puff 2 times per day (Last dose: 07/13/2016) - PMHx: CAD; Diabetes - IDDM: controlled; Emphysema; GERD; Hypercholesterolemia; Hypertension; Nicotine Abuse; Polydispsia; Stroke; - PSHx: Appendectomy; - Social history: Smoking status: No barriers to communication noted, The patient speaks fluent French, Speaks appropriately for age, Smoking status: Patient uses tobacco products, heavy tobacco smoker. - Family history: Not pertinent. - : The pt / caregiver states he / she is not on anticoagulants. Home medication list is obtained from family members. - Exposure Risk Screening:: None identified. Screenin:48 Screening information is obtained from the patient. Fall risk: No risks identified. jo3 Assistance ADL's: requires no assistance with activities of daily living. Abuse/DV Screen: The patient / caregiver reports he/she is: not in a situation that causes fear, pain or injury. Nutritional screening: No deficits noted. Advance Directives: There is no active DNR order. home support is adequate. Assessment: 09:48 Reassessment: See triage assessment . jo3 10:59 General: Appears in no apparent distress, comfortable, Behavior is cooperative, drowsy. jo3 Neurological: No deficits noted. Cardiovascular: Rhythm is sinus rhythm with unifocal PVCs Chest pain is denied Pt now reports that he had chest pain x 2 nights. Denies at this time . Respiratory: Airway is patent Respiratory effort is even, unlabored. Derm: Skin is intact, Skin is dry, Skin is pale, Skin temperature is warm. 11:48 Reassessment: Patient appears in no apparent distress at this time. No acute changes jo3 noted at this time. Awaiting admitting physician at this time. Aware of plan of care . 12:45 General: Appears in no apparent distress, comfortable, Behavior is appropriate for age, jo3 cooperative, drowsy. Neurological: Level of Consciousness is awake, alert, Oriented to person, place, time. Cardiovascular: Rhythm is sinus rhythm with unifocal PVCs. Derm: Skin is intact, Skin is dry, Skin is pale, Skin temperature is warm. 13:35 Reassessment: Patient appears in no apparent distress at this time. Patient denies pain jo3 at this time. Patient states feeling better. Patient states symptoms have improved. Multiple family at bedside. Awaiting available bed for admissions. Aware of plan of care . 14:22 Reassessment: Patient appears in no apparent distress at this time. Patient denies pain jo3 at this time. Family remains at bedside. Continues to await available bed on PCU. Aware of plan of care . 15:40 General: Appears in no apparent distress, comfortable, Behavior is appropriate for age, jo3 cooperative, pleasant. General: Awaiting available bed for admission. Aware of plan of care . Neurological: Level of Consciousness is awake, alert, Oriented to person, place, time. Cardiovascular: Rhythm is sinus rhythm with unifocal PVCs. Derm: Skin is intact, Skin is dry, Skin is pale. 16:55 Reassessment: Patient appears in no apparent distress at this time. Appears asleep on jo3 stretcher at this time. Awaiting available bed for admission. Aware of plan of care. Family at bedside . 17:56 Reassessment: Patient appears in no apparent distress at this time. Has some c/o mild jo3 discomfort due to being on stretcher. Looking for available bed to put pt into. Awaiting Tylenol from pharmacy to administer as per written order . 18:51 General: Appears in no apparent distress, Behavior is appropriate for age, cooperative. jo3 Neurological: No deficits noted. Level of Consciousness is awake, alert, Oriented to person, place, time. Cardiovascular: Rhythm is sinus rhythm with unifocal PVCs Chest pain is denied. Respiratory: Airway is patent Respiratory effort is even, unlabored. Derm: Skin is intact, Skin is dry. Vital Signs: 09:12 BP 134 / 86 (auto/); jo3 09:13 Pulse 80 MON; Pulse Ox 93% ; jo3 09:14 BP 134 / 86; Pulse 80; Resp 20; Temp 98.5(TE); Pulse Ox 91% 8% ; Pain 0/10; nb2 09:27 BP 128 / 60 (auto/); jo3 09:27 Pulse 80 MON; Pulse Ox 94% ; jo3 09:28 Weight 88 kg; Height 5 ft. 7 in. (170.18 cm); dem1 09:42 BP 115 / 57 (auto/); jo3 09:42 Pulse 82 MON; Pulse Ox 83% ; jo3 09:57 BP 127 / 60 (auto/); jo3 09:57 Pulse 86 MON; Pulse Ox 91% ; jo3 10:12 BP 120 / 55 (auto/); jo3 10:12 Pulse 86 MON; Pulse Ox 93% ; jo3 10:27 BP 121 / 58 (auto/); jo3 10:27 Pulse 84 MON; Pulse Ox 95% ; jo3 10:42 BP 125 / 63 (auto/); jo3 10:42 Pulse 86 MON; Pulse Ox 92% ; jo3 10:56 Pulse 86 MON; Pulse Ox 93% ; jo3 10:57 BP 114 / 55 (auto/); jo3 11:12 BP 122 / 62 (auto/); jo3 11:12 Pulse 82 MON; Pulse Ox 89% ; jo3 11:27 BP 116 / 63 (auto/); jo3 11:27 Pulse 78 MON; Pulse Ox 90% ; jo3 11:42 BP 110 / 59 (auto/); jo3 11:42 Pulse 76 MON; Pulse Ox 90% ; jo3 11:57 BP 113 / 62 (auto/); jo3 11:57 Pulse 74 MON; Pulse Ox 90% ; jo3 12:12 BP 115 / 63 (auto/); jo3 12:12 Pulse 72 MON; Pulse Ox 92% ; jo3 12:26 Pulse 74 MON; Pulse Ox 92% ; jo3 12:27 BP 124 / 66 (auto/); jo3 12:42 BP 119 / 68 (auto/); jo3 12:42 Pulse 76 MON; Pulse Ox 93% ; jo3 12:57 BP 128 / 68 (auto/); jo3 12:57 Pulse 72 MON; Pulse Ox 94% ; jo3 13:12 BP 126 / 70 (auto/); jo3 13:12 Pulse 72 MON; Pulse Ox 94% ; jo3 13:27 BP 120 / 65 (auto/); jo3 13:27 Pulse 72 MON; Pulse Ox 93% ; jo3 13:42 BP 124 / 65 (auto/); jo3 13:42 Pulse 74 MON; Pulse Ox 96% ; jo3 14:12 BP 124 / 62 (auto/); jo3 14:12 Pulse 76 MON; jo3 14:27 BP 126 / 68 (auto/); jo3 14:27 Pulse 72 MON; Pulse Ox 95% ; jo3 14:42 BP 115 / 60 (auto/); jo3 14:42 Pulse 74 MON; Pulse Ox 95% ; jo3 14:57 BP 118 / 63 (auto/); jo3 14:57 Pulse 76 MON; Pulse Ox 94% ; jo3 15:27 BP 132 / 70 (auto/); jo3 15:27 Pulse 80 MON; Pulse Ox 93% ; jo3 15:42 BP 136 / 67 (auto/); jo3 15:42 Pulse 84 MON; Pulse Ox 96% ; jo3 15:57 BP 135 / 71 (auto/); jo3 15:57 Pulse 78 MON; Pulse Ox 94% ; jo3 16:12 BP 134 / 76 (auto/); jo3 16:12 Pulse 82 MON; Pulse Ox 94% ; jo3 16:27 BP 137 / 72 (auto/); jo3 16:27 Pulse 78 MON; Pulse Ox 92% ; jo3 16:42 BP 138 / 78 (auto/); jo3 16:42 Pulse 88 MON; jo3 16:57 BP 131 / 59 (auto/); jo3 16:57 Pulse 84 MON; Pulse Ox 96% ; jo3 17:12 BP 132 / 67 (auto/); jo3 17:12 Pulse 82 MON; Pulse Ox 96% ; jo3 17:27 BP 129 / 61 (auto/); jo3 17:27 Pulse 80 MON; Pulse Ox 97% ; jo3 17:42 BP 117 / 56 (auto/); jo3 17:42 Pulse 80 MON; Pulse Ox 96% ; jo3 17:57 BP 137 / 65 (auto/); jo3 17:57 Pulse 80 MON; Pulse Ox 96% ; jo3 18:12 BP 141 / 69 (auto/); jo3 18:12 Pulse 80 MON; Pulse Ox 96% ; jo3 18:27 BP 140 / 68 (auto/); jo3 18:27 Pulse 82 MON; Pulse Ox 94% ; jo3 18:42 BP 137 / 68 (auto/); jo3 18:42 Pulse 82 MON; Pulse Ox 97% ; jo3 09:28 Body Mass Index 30.39 (88.00 kg, 170.18 cm) dem1 Vitals: 09:14 Log In Time N/A - ambulance arrival. nb2 ED Course: 09:04 Patient visited by Irena Stevens PCA. ar3 09:04 Patient moved to Waiting ar3 09:05 Sujey Lindsey,RN is Primary Nurse. ar3 09:05 Keisha Mcarthur,RN is Primary Nurse. ar3 09:05 Patient moved to 8 ar3 09:11 Triage Initiated jo3 09:14 Placed in gown. Bed in low position. Call light in reach. Side rails up X2. Cardiac nb2 monitor on. Pulse ox on. NIBP on. 09:15 Patient visited by Calli Garcia. nb2 09:16 Patient visited by Mray Benton,MIRANDA. jo3 09:21 Irene Hebert MD is Attending Physician. ml 09:21 Patient visited by Irene Hebert MD. ml 09:31 EKG done. (by ED staff). Reviewed by Irene Hebert MD. nb2 09:35 Patient visited by Calli Garcia. nb2 09:36 Patient visited by Calli Garcia. nb2 09:45 BLOOD CULTURES Sent. jo3 09:45 Liver Profile Sent. jo3 09:45 -Influenza A&B Rapid Antigen - Nose Sent. jo3 09:45 -Blood Culture Sent. jo3 09:45 Troponin Sent. jo3 09:45 CIP Sent. jo3 09:46 BNP Sent. jo3 09:46 MED Profile Sent. jo3 09:46 CBC with Diff Sent. jo3 09:48 The patient / caregiver is instructed regarding the plan of care and ED course. jo3 09:48 Maintain field IV. Dressing intact. Good blood return noted. Site clean & dry. Gauge & jo3 site: 20g in left hand. Labs drawn. (by ED staff). Sent per order to lab. Labs/Blood culture drawn. 09:50 Patient visited by Mary Benton RN. jo3 10:15 Notified attending ED physician of Critical lab value. Troponin 2.87. jo3 10:15 Inserted saline lock: 18 gauge in left antecubital area. No procedures done that jo3 require assistance. Labs drawn. Sent per order to lab. 10:40 Chest, 1 View Returned. EDMS 10:56 Patient name changed from Tamia\S\\S\Alberry\S\ to Tamia\S\G\S\Alberry. EDMS 10:59 [facility] Payment Agreement was scanned into [employer] and attached to record. lg 11:03 Patient visited by Mary Benton RN. jo3 11:50 Patient visited by Mary Benton RN. jo3 11:50 Primary Nurse role handed off by Sujey Lindsey RN ct3 11:53 Patient visited by Mary Benton RN. jo3 12:30 Bharat Muse MD is Hospitalizing Provider. ml 13:27 Patient moved to Admit Hold kpj 14:24 Patient visited by Mary Benton RN. jo3 14:48 Notified private physician of abnormal lab values. Dr Amberly Muse notified of troponin level [facility] of 4.09, no new orders.. 17:41 Patient visited by Mary Benton RN. jo3 17:59 Patient visited by Mary Benton RN. jo3 18:03 Patient visited by Mary Benton RN. jo3 18:54 Patient visited by Mary Benton RN. jo3 18:56 Sujey Lindsey RN is Primary Nurse. ko2 19:03 Patient visited by Lucien Haines PCA. kb5 19:06 Patient visited by Mary Benton RN. jo3 19:25 Patient moved to 20 ml3 19:48 EKG-ADULT Returned. EDMS 21:34 Patient moved to Admit Hold ml3 22:32 Patient visited by Lucien Haines PCA. kb5 07/15 00:42 Primary Nurse role handed off by Keisha Mcarthur RN kb5 07:22 Primary Nurse role handed off by Sujey Lindsey RN deg 13:00 T-Sheet-- Draft Copy was scanned into [employer] and attached to record. gb 15:56 Inserted peripheral IV: 18gauge IV in left antecubital area Patient tolerated the aa3 procedure well. Administered Medications: 07/14 09:20 Drug: Albuterol 5 mg [albuterol sulfate 2.5 mg/0.5 mL solution for nebulization (1 mL)] kt1 Route: Nebulizer; 09:43 Drug: Albuterol-Ipratropium 3 ml [ipratropium-albuterol 0.5 mg-3 mg(2.5 mg base)/3 mL kt1 nebulization soln (3 mL)] Route: Inhalation; 10:32 Drug: Aspirin 324 mg [aspirin 81 mg chewable tablet (4 tabs)] Route: PO; jo3 10:34 Drug: Furosemide 20 mg [furosemide 10 mg/mL injection solution (2 mL)] Route: IVP; jo3 Site: left hand; 10:38 Drug: Moxifloxacin 400 mg [moxifloxacin 400 mg/250 mL-sodium chloride(iso) intravenous jo3 piggyback] Route: IV; Rate: 400 mg/hr; Infused Over: 60 mins; Site: left hand; 11:46 Follow up: IV Status: Completed infusion jo3 16:20 Drug: Atenolol 50 mg [atenolol 25 mg tablet (2 tabs)] Route: PO; jo3 16:20 Drug: Finasteride (Proscar) 5 mg Route: PO; jo3 16:20 Drug: Nicotine Patch 14 mg/24 hr 14 mg Route: Transdermal; Site: right upper arm; jo3 16:20 Drug: Losartan 50 mg [losartan 25 mg tablet (2 tabs)] Route: PO; jo3 16:55 Drug: Pantoprazole 40 mg [pantoprazole 40 mg tablet,delayed release (1 tabs)] Route: PO;jo3 16:55 Drug: Solu-MEDROL 60 mg [Solu-Medrol 500 mg intravenous solution (60 mg)] Route: IVP; jo3 Site: right antecubital; 18:55 Drug: Acetaminophen 1000 mg [acetaminophen 500 mg tablet (2 tabs)] Route: PO; jo3 07/15 13:45 Drug: Atropine 1 mg [atropine 0.4 mg/mL injection solution (2.5 mL)] Route: IVP; Site: hs1 right forearm; Point of Care Testing: Blood Glucose: 15:46 Blood Glucose: 412 mg/dL; kc3 Ranges: RT: 07/14 09:43 Initial Med Neb Given as ordered Patient was instructed and evaluated on procedure. kt1 Order Results: Lab Order: CBC with Diff; SPEC'M 07/14/16 09:34 Test: WHITE BLOOD COUNT; Value: 8.0; Range: 4.0-10.0; Units: K/mm3; Status: F Test: RED BLOOD COUNT; Value: 2.65; Range: 4.30-6.10; Abnormal: Below low normal; Units: M/mm3; Status: F Test: HEMOGLOBIN; Value: 8.4; Range: 14.0-18.0; Abnormal: Below low normal; Units: g/dl; Status: F Test: HEMATOCRIT; Value: 23.5; Range: 42.0-52.0; Abnormal: Below low normal; Units: %; Status: F Test: MEAN CORPUSCULAR VOLUME; Value: 88.7; Range: 80.0-96.0; Units: fl; Status: F Test: MEAN CORPUSCULAR HEMOGLOBIN; Value: 31.6; Range: 27.0-33.0; Units: pg; Status: F Test: MEAN CORPUSCULAR HGB CONC; Value: 35.7; Range: 32.0-36.5; Units: g/dl; Status: F Test: RED CELL DISTRIBUTION WIDTH; Value: 14.5; Range: 11.5-14.5; Units: %; Status: F Test: PLATELET COUNT, AUTOMATED; Value: 323; Range: 150-450; Units: k/mm3; Status: F Test: NEUTROPHILS %; Value: 82.8; Range: 36.0-66.0; Abnormal: Above high normal; Units: %; Status: F Test: LYMPH %; Value: 10.3; Range: 24.0-44.0; Abnormal: Below low normal; Units: %; Status: F Test: MONO %; Value: 4.0; Range: 0.0-5.0; Units: %; Status: F Test: EOS %; Value: 0.3; Range: 0.0-3.0; Units: %; Status: F Test: BASO %; Value: 0.6; Range: 0.0-1.0; Units: %; Status: F Test: LARGE UNSTAINED CELL %; Value: 2.1; Range: 0.0-4.0; Units: %; Status: F Test: NEUTROPHILS #; Value: 6.6; Range: 1.8-7.7; Units: K/mm3; Status: F Test: LYMPH #; Value: 0.8; Range: 1.5-4.5; Abnormal: Below low normal; Units: K/mm3; Status: F Test: MONO #; Value: 0.3; Range: 0.0-0.8; Units: K/mm3; Status: F Test: EOS #; Value: 0.0; Range: 0.0-0.50; Units: K/mm3; Status: F Test: BASO #; Value: 0.0; Range: 0.0-0.2; Units: K/mm3; Status: F Test: LARGE UNSTAINED CELL #; Value: 0.2; Range: 0.0-0.4; Units: K/mm3; Status: F Lab Order: MED Profile; SPEC'M 07/14/16 09:34 Test: GLUCOSE, FASTING; Value: 166; Range: 83-110; Abnormal: Above high normal; Units: MG/DL; Status: F Test: BLOOD UREA NITROGEN; Value: 32; Range: 7-18; Abnormal: Above high normal; Units: MG/DL; Status: F Test: CREATININE FOR GFR; Value: 1.35; Range: 0.70-1.30; Abnormal: Above high normal; Units: MG/DL; Status: F Test: GLOMERULAR FILTRATION RATE; Value: 54.8; Range: >42; Status: F Test: SODIUM LEVEL; Value: 123; Range: 136-145; Abnormal: Below low normal; Units: MEQ/L; Status: F Test: POTASSIUM SERUM; Value: 4.6; Range: 3.5-5.1; Units: MEQ/L; Status: F Test: CHLORIDE LEVEL; Value: 89; Range: 98-107; Abnormal: Below low normal; Units: MEQ/L; Status: F Test: CARBON DIOXIDE LEVEL; Value: 24; Range: 21-32; Units: MEQ/L; Status: F Test: ANION GAP; Value: 10; Range: 8-16; Units: MEQ/L; Status: F Test: CALCIUM LEVEL; Value: 8.5; Range: 8.8-10.2; Abnormal: Below low normal; Units: MG/DL; Status: F Test Note: ; Units are mL/min/1.73 m2 Chronic Kidney Disease Staging per NKF: Stage I & II GFR >=60 Normal to Mildly Decreased Stage III GFR 30-59 Moderately Decreased Stage IV GFR 15-29 Severely Decreased Stage V GFR <15 Very Little GFR Left ESRD GFR <15 on OFFICE CLIN ASST Lab Order: BNP; 07/14/16:34 Test: BRAIN NATRIURETIC PEPTIDE; Value: 576; Range: <100; Abnormal: Above high normal; Units: PG/ML; Status: F Lab Order: CIP; 07/14/16 09:34 Test: CPK CREATINE PHOSPHOKINASE; Value: 228; Range: 39-308; Units: U/L; Status: F Test: CK-MB VALUE MASS; Value: 8.0; Range: 0.0-3.6; Abnormal: Above high normal; Units: NG/ML; Status: F Test: MB/CK RELATIVE INDEX; Value: 3.50; Range: < OR =4; Status: F Test Note: ; DIAGNOSIS CRITERIA MMB ng/ml Relative Index (RI) NON-AMI < or = 5 N/A BORREGO ZONE > 5 < or = 4 AMI > 5 > 4 Lab Order: Troponin; 07/14/16 09:34 Test: TROPONIN I; Value: 2.87; Range: < 0.10; Abnormal: Above upper panic limits; Units: NG/ML; Status: F Test Note: ; Troponin I Reference Interval for [place] LOCI: 99th Percentile= 0.00-0.045 ng/ml Risk Stratification: <= 0.10 ng/ml Decreased Risk for Adverse Clinical Events. 0.10-1.50 ng/ml Increased Risk for Adverse Clinical Events. Evaluation of additional criterion and/or repeat testing in 2-6 hours is suggested to rule out myocardial damage. >= 1.50 ng/ml Indicative of Myocardial Injury. Lab Order: -Blood Culture; SPEC'M 07/14/16 09:34 Test: BLOOD CULTURE; Value: DATE POSITIVE DETECTED 07/15/16; Status: F Test: BLOOD CULTURE; Value: EXTERNAL GS (REQUIRED!!!) GRAM POSITIVE RODS; Status: F Lab Order: -Arterial Blood Gas; SPEC'M 07/14/16 09:35 Test: ABG pH (ARTERIAL); Value: 7.419; Range: 7.350-7.450; Units: UNITS; Status: F Test: ABG PARTIAL PRESSURE CO2; Value: 34.8; Range: 35.0-45.0; Abnormal: Below low normal; Units: mmHg; Status: F Test: ABG PARTIAL PRESSURE O2; Value: 81.6; Range: 75.0-100.0; Units: mmHg; Status: F Test: ABG TOTAL CO2; Value: 23.1; Range: 23.0-31.0; Units: MEQ/L; Status: F Test: ABG HCO3; Value: 22.0; Range: 22.0-26.0; Units: MEQ/L; Status: F Test: ABG BASE EXCESS; Value: -2.1; Range: -2.0-2.0; Abnormal: Below low normal; Status: F Test: ABG STANDARD HCO3; Value: 22.7; Range: 22.0-26.0; Units: MEQ/L; Status: F Test: ABG O2 SATURATION; Value: 95.5; Range: 95.0-99.0; Units: %; Status: F Test: ABG DEVICE; Value: NASAL BETTY; Status: F Lab Order: -Influenza A&B Rapid Antigen - Nose; SPEC'M 07/14/16 09:34 Test: INFLUENZA A RAPID SCR by ICA; Value: INFLUENZA A RESULTS NEGATIVE; Status: F Test: INFLUENZA A RAPID SCR by ICA; Value: Comments:; Status: F Test: INFLUENZA B RAPID SCR by ICA; Value: INFLUENZA B RESULTS NEGATIVE; Status: F Test Note: ; The Influenza test is a direct rapid immunoassay for the qualitative detection of Influenza viral antigen. Cell culture (Viral Culture) testing should be considered to confirm NEGATIVE results and to assist in detecting other viruses that can provide similar clinical symptoms. Please contact the lab within 24 hours ([phone]) if confirmatory testing is desired. Lab Order: Liver Profile; SPEC'M 07/14/16 09:34 Test: AST/SGOT; Value: 26; Range: 15-37; Units: U/L; Status: F Test: ALT/SGPT; Value: 29; Range: 12-78; Units: U/L; Status: F Test: ALKALINE PHOSPHATASE; Value: 55; Range: 45-117; Units: U/L; Status: F Test: BILIRUBIN,TOTAL; Value: 0.8; Range: 0.2-1.0; Units: MG/DL; Status: F Test: BILIRUBIN,DIRECT; Value: 0.3; Range: 0.0-0.2; Abnormal: Above high normal; Units: MG/DL; Status: F Test: TOTAL PROTEIN; Value: 6.7; Range: 6.4-8.2; Units: GM/DL; Status: F Test: ALBUMIN; Value: 3.3; Range: 3.2-5.2; Units: GM/DL; Status: F Test: ALBUMIN/GLOBULIN RATIO; Value: 0.97; Range: 1.00-1.93; Abnormal: Below low normal; Status: F Lab Order: BLOOD CULTURES; SPEC'07/14/16 09:42 Test: BLOOD CULTURE; Value: No growth after 24 hours . All specimens observed; Status: F Test: BLOOD CULTURE; Value: for 7 days. Results final at that time.; Status: F Lab Order: PT/INR; SPEC'07/14/16 09:42 Test: PROTHROMBIN TIME; Value: 13.7; Range: 12.3-14.5; Units: SECONDS; Status: F Test: INR; Value: 1.04; Status: F Test Note: ; THERAPUTIC HUMAN INR VALUES INDICATIONS NORMAL RANGES PROPHYLAXIS/TREATMENT OF: VENOUS THROMBOSIS 2.0-3.0 PULMONARY EMBOLISM 2.0-3.0 PREVENTION OF SYSTEMIC EMBOLISM FROM: TISSUE HEART VALVES 2.0-3.0 ACUTE MYOCARDIAL INFARCTION 2.0-3.0 VALVULAR HEART DISEASE 2.0-3.0 ATRIAL FIBRILLATION 2.0-3.0 MECHANICAL VALVES(HIGH RISK) 2.5-3.5 RECURRENT MYOCARDIAL INFARCTION 2.5-3.5 Lab Order: PTT; SPEC'M 07/14/16 09:42 Test: PARTIAL THROMBOPLASTIN TIME; Value: 33.8; Range: 26.6-37.1; Units: SECONDS; Status: F Lab Order: Type & Screen; [facility] 07/14/16 10:55 Test: BLOOD TYPE; Value: B POS; Status: F Test: AB SCREEN (INDIRECT BLACK)GEL; Value: NEGATIVE; Status: F Lab Order: CARDIAC INJURY PROFILE; [facility] 07/14/16 13:58 Test: CPK CREATINE PHOSPHOKINASE; Value: 215; Range: 39-308; Units: U/L; Status: F Test: CK-MB VALUE MASS; Value: 8.1; Range: 0.0-3.6; Abnormal: Above high normal; Units: NG/ML; Status: F Test: MB/CK RELATIVE INDEX; Value: 3.76; Range: < OR =4; Status: F Test Note: ; DIAGNOSIS CRITERIA MMB ng/ml Relative Index (RI) NON-AMI < or = 5 N/A BORREGO ZONE > 5 < or = 4 AMI > 5 > 4 Lab Order: CARDIAC INJURY PROFILE; [facility] 07/14/16 20:44 Test: CPK CREATINE PHOSPHOKINASE; Value: 227; Range: 39-308; Units: U/L; Status: F Test: CK-MB VALUE MASS; Value: 8.6; Range: 0.0-3.6; Abnormal: Above high normal; Units: NG/ML; Status: F Test: MB/CK RELATIVE INDEX; Value: 3.78; Range: < OR =4; Status: F Test Note: ; DIAGNOSIS CRITERIA MMB ng/ml Relative Index (RI) NON-AMI < or = 5 N/A BORREGO ZONE > 5 < or = 4 AMI > 5 > 4 Lab Order: TROPONIN; [facility] 07/14/16 13:58 Test: TROPONIN I; Value: 4.09; Range: < 0.10; Abnormal: Critical Delta High; Units: NG/ML; Status: F Test Note: ; Troponin I Reference Interval for [place] LOCI: 99th Percentile= 0.00-0.045 ng/ml Risk Stratification: <= 0.10 ng/ml Decreased Risk for Adverse Clinical Events. 0.10-1.50 ng/ml Increased Risk for Adverse Clinical Events. Evaluation of additional criterion and/or repeat testing in 2-6 hours is suggested to rule out myocardial damage. >= 1.50 ng/ml Indicative of Myocardial Injury. Lab Order: TROPONIN; SPEC'M 07/14/16 20:44 Test: TROPONIN I; Value: 2.49; Range: < 0.10; Abnormal: Critical Delta High; Units: NG/ML; Status: F Test Note: ; Troponin I Reference Interval for [employer] [place] LOCI: 99th Percentile= 0.00-0.045 ng/ml Risk Stratification: <= 0.10 ng/ml Decreased Risk for Adverse Clinical Events. 0.10-1.50 ng/ml Increased Risk for Adverse Clinical Events. Evaluation of additional criterion and/or repeat testing in 2-6 hours is suggested to rule out myocardial damage. >= 1.50 ng/ml Indicative of Myocardial Injury. Lab Order: CBC WITH DIFFERENTIAL; SPEC'M 07/15/16 07:28 Test: WHITE BLOOD COUNT; Value: 5.1; Range: 4.0-10.0; Units: K/mm3; Status: F Test: RED BLOOD COUNT; Value: 2.38; Range: 4.30-6.10; Abnormal: Below low normal; Units: M/mm3; Status: F Test: HEMOGLOBIN; Value: 7.2; Range: 14.0-18.0; Abnormal: Below low normal; Units: g/dl; Status: F Test: HEMATOCRIT; Value: 20.9; Range: 42.0-52.0; Abnormal: Below low normal; Units: %; Status: F Test: MEAN CORPUSCULAR VOLUME; Value: 87.8; Range: 80.0-96.0; Units: fl; Status: F Test: MEAN CORPUSCULAR HEMOGLOBIN; Value: 30.3; Range: 27.0-33.0; Units: pg; Status: F Test: MEAN CORPUSCULAR HGB CONC; Value: 34.6; Range: 32.0-36.5; Units: g/dl; Status: F Test: RED CELL DISTRIBUTION WIDTH; Value: 15.5; Range: 11.5-14.5; Abnormal: Above high normal; Units: %; Status: F Test: PLATELET COUNT, AUTOMATED; Value: 290; Range: 150-450; Units: k/mm3; Status: F Test: NEUTROPHILS %; Value: 86.0; Range: 36.0-66.0; Abnormal: Above high normal; Units: %; Status: F Test: LYMPH %; Value: 8.8; Range: 24.0-44.0; Abnormal: Below low normal; Units: %; Status: F Test: MONO %; Value: 3.8; Range: 0.0-5.0; Units: %; Status: F Test: EOS %; Value: 0.3; Range: 0.0-3.0; Units: %; Status: F Test: BASO %; Value: 0.4; Range: 0.0-1.0; Units: %; Status: F Test: LARGE UNSTAINED CELL %; Value: 0.7; Range: 0.0-4.0; Units: %; Status: F Test: NEUTROPHILS #; Value: 4.4; Range: 1.8-7.7; Units: K/mm3; Status: F Test: LYMPH #; Value: 0.5; Range: 1.5-4.5; Abnormal: Below low normal; Units: K/mm3; Status: F Test: MONO #; Value: 0.2; Range: 0.0-0.8; Units: K/mm3; Status: F Test: EOS #; Value: 0.0; Range: 0.0-0.50; Units: K/mm3; Status: F Test: BASO #; Value: 0.0; Range: 0.0-0.2; Units: K/mm3; Status: F Test: LARGE UNSTAINED CELL #; Value: 0.0; Range: 0.0-0.4; Units: K/mm3; Status: F Lab Order: CARDIAC INJURY PROFILE; SPEC'M 07/15/16 07:28 Test: CPK CREATINE PHOSPHOKINASE; Value: 242; Range: 39-308; Units: U/L; Status: F Test: CK-MB VALUE MASS; Value: 10.6; Range: 0.0-3.6; Abnormal: Above high normal; Units: NG/ML; Status: F Test: MB/CK RELATIVE INDEX; Value: 4.38; Range: < OR =4; Abnormal: Above high normal; Status: F Test Note: ; DIAGNOSIS CRITERIA MMB ng/ml Relative Index (RI) NON-AMI < or = 5 N/A [place]ONE > 5 < or = 4 AMI > 5 > 4 Lab Order: TROPONIN; [facility] 07/15/16 07:28 Test: TROPONIN I; Value: 2.23; Range: < 0.10; Abnormal: Above upper panic limits; Units: NG/ML; Status: F Test Note: ; Troponin I Reference Interval for [place] LOCI: 99th Percentile= 0.00-0.045 ng/ml Risk Stratification: <= 0.10 ng/ml Decreased Risk for Adverse Clinical Events. 0.10-1.50 ng/ml Increased Risk for Adverse Clinical Events. Evaluation of additional criterion and/or repeat testing in 2-6 hours is suggested to rule out myocardial damage. >= 1.50 ng/ml Indicative of Myocardial Injury. Lab Order: Fingerstick Blood Sugar; [facility] 07/14/16 20:39 Test: BEDSIDE GLUCOSE; Value: 416; Range: 83-110; Abnormal: Above high normal; Units: MG/DL; Status: F Lab Order: Fingerstick Blood Sugar; [facility] 07/14/16 23:10 Test: BEDSIDE GLUCOSE; Value: 411; Range: 83-110; Abnormal: Above high normal; Units: MG/DL; Status: F Lab Order: COMPLETE COMPHRENSIVE METABOLI; [facility] 07/15/16 07:28 Test: GLUCOSE, FASTING; Value: 330; Range: 83-110; Abnormal: Above high normal; Units: MG/DL; Status: F Test: BLOOD UREA NITROGEN; Value: 43; Range: 7-18; Abnormal: Above high normal; Units: MG/DL; Status: F Test: CREATININE FOR GFR; Value: 1.54; Range: 0.70-1.30; Abnormal: Above high normal; Units: MG/DL; Status: F Test: GLOMERULAR FILTRATION RATE; Value: 47.1; Range: >42; Status: F Test: SODIUM LEVEL; Value: 122; Range: 136-145; Abnormal: Below low normal; Units: MEQ/L; Status: F Test: POTASSIUM SERUM; Value: 4.7; Range: 3.5-5.1; Units: MEQ/L; Status: F Test: CHLORIDE LEVEL; Value: 88; Range: 98-107; Abnormal: Below low normal; Units: MEQ/L; Status: F Test: CARBON DIOXIDE LEVEL; Value: 21; Range: 21-32; Units: MEQ/L; Status: F Test: ANION GAP; Value: 13; Range: 8-16; Units: MEQ/L; Status: F Test: CALCIUM LEVEL; Value: 8.2; Range: 8.8-10.2; Abnormal: Below low normal; Units: MG/DL; Status: F Test: AST/SGOT; Value: 22; Range: 15-37; Units: U/L; Status: F Test: ALT/SGPT; Value: 27; Range: 12-78; Units: U/L; Status: F Test: ALKALINE PHOSPHATASE; Value: 47; Range: 45-117; Units: U/L; Status: F Test: BILIRUBIN,TOTAL; Value: 0.6; Range: 0.2-1.0; Units: MG/DL; Status: F Test: TOTAL PROTEIN; Value: 6.3; Range: 6.4-8.2; Abnormal: Below low normal; Units: GM/DL; Status: F Test: ALBUMIN; Value: 3.0; Range: 3.2-5.2; Abnormal: Below low normal; Units: GM/DL; Status: F Test: ALBUMIN/GLOBULIN RATIO; Value: 0.91; Range: 1.00-1.93; Abnormal: Below low normal; Status: F Test Note: ; Units are mL/min/1.73 m2 Chronic Kidney Disease Staging per NKF: Stage I & II GFR >=60 Normal to Mildly Decreased Stage III GFR 30-59 Moderately Decreased Stage IV GFR 15-29 Severely Decreased Stage V GFR <15 Very Little GFR Left ESRD GFR <15 on OFFICE CLIN ASST Lab Order: MAGNESIUM LEVEL; SPEC07/15/16 07:28 Test: MAGNESIUM LEVEL; Value: 1.8; Range: 1.8-2.4; Units: MG/DL; Status: F Lab Order: Fingerstick Blood Sugar; SPEC07/15/16 07:20 Test: BEDSIDE GLUCOSE; Value: 371; Range: 83-110; Abnormal: Above high normal; Units: MG/DL; Status: F Lab Order: Fingerstick Blood Sugar; SPEC07/15/16 12:04 Test: BEDSIDE GLUCOSE; Value: 428; Range: 83-110; Abnormal: Above high normal; Units: MG/DL; Status: F Lab Order: Fingerstick Blood Sugar; SPEC'M 07/15/16 14:53 Test: BEDSIDE GLUCOSE; Value: 438; Range: 83-110; Abnormal: Above high normal; Units: MG/DL; Status: F Lab Order: Fingerstick Blood Sugar; SPEC'M 07/15/16 15:44 Test: BEDSIDE GLUCOSE; Value: 412; Range: 83-110; Abnormal: Above high normal; Units: MG/DL; Status: F Radiology Order: EKG-ADULT Test: EKG-ADULT REASON FOR EXAMINATION: sob; Stationary ECG Study; [facility] - ED; ; Test Date: 2016-07-14; Pat Name: TAMIA AUGUSTIN Department:; Room: -; Gender: M 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: dm; : 1940 Requested By: Irene Hebert; Order Number: [id number] Reading MD: Albert Viramontes; Measurements; Intervals [place]; Rate: 81 P: 16; SD: 219 QRS: -7; QRSD: 98 T: 33; QT: 353; QTc: 412; Interpretive Statements; SINUS RHYTHM WITH FIRST DEGREE AV BLOCK; NONSPECIFIC ST T-WAVE ABNORMALITY; SIMILAR TO 06/16/16; Electronically Signed On 07-14-2016 19:13:02 EST by Albert Viramontes; Radiology Order: Chest, 1 View Test: Chest, 1 View REASON FOR EXAMINATION: sob; Portable chest x-ray: Sitting AP view.; ; History: Shortness of breath.; ; Comparison study: June 16, 2016.; ; Findings: There is a extensive perihilar infiltrate pattern in the left lung.; Heart is mildly prominent unchanged. No pleural effusion is seen. There is; slight cephalization of the pulmonary vasculature.; ; Impression:; ; Fairly dense and extensive left perihilar infiltrate, probable pneumonia.; Asymmetric pulmonary edema is considered a less likely possibility.; ; ; Signed by; Abe Lee MD 07/14/2016 10:24 A; Outcome: 12:32 Decision to Hospitalize by Provider. 07/15 16:37 Patient left the ED. deg Signatures: Dispatcher [employer] [facility]-Irene Borrego MD MD ml Villa, Cinthya, General Manager Road Production Unit deg Elyse Garrison, RN RN kpj Allie Raymond, Reg Reg gb Kenya, Jonathan, Reg Reg lg Krystle,Libia kt1 Tone, Braxton, General Manager Road Production Unit ml3 Mary Benton,RN RN jo3 Lucien Haines, PORTFOLIO ADMINISTRATOR PORTFOLIO ADMINISTRATOR kb5 Irena Stevens, PORTFOLIO ADMINISTRATOR PORTFOLIO ADMINISTRATOR ar3 Zenobia Esposito RN RN hs1 Lorena Joseph, PORTFOLIO ADMINISTRATOR PORTFOLIO ADMINISTRATOR ct3 Binh, Lucille dem1 Vidhi NicholsRN RN aa3 Sujey Lindsey,MIRANDA RN randal2 Sivan Mas,RN RN kc3 Calli Garcia2 MTDD
--- NOTE | 2016-07-15 18:21 | IPNPDOC ---
Text Note Date of Service The patient was seen on 07/15/16 at 18:18. NOTE Called by nurse - patient is having increased work of breathing and requiring 10 L/min of O2. I evaluated the patient with Dr. Duran. He has not had much UOP since he received lasix 40 mg IV at 16:40. He has rales bilaterally. Repeat CXR done with image pending. 2nd unit of pRBCs was just completed. Patient denies any chest pain. We will place a badillo catheter, recheck labs, and continue to monitor. He may need further lasix this evening and could potentially require CPAP. (KES) VS,Fishbone, I+O VS, Fishbone, I+O Laboratory Tests 07/15/16 07:28 Calcium Level 8.2 L, Aspartate Amino Transf (AST/SGOT) 22, Alanine Aminotransferase (ALT/SGPT) 27, Total Creatine Kinase 242, Alkaline Phosphatase 47, Total Bilirubin 0.6, Total Protein 6.3 L, Albumin 3.0 L, Red Blood Count 2.38 L, Mean Corpuscular Volume 87.8, Mean Corpuscular Hemoglobin 30.3, Mean Corpuscular Hemoglobin Concent 34.6, Red Cell Distribution Width 15.5 H, Neutrophils (%) (Auto) 86.0 H, Lymphocytes (%) (Auto) 8.8 L, Monocytes (%) (Auto ) 3.8, Eosinophils (%) (Auto) 0.3, Basophils (%) (Auto) 0.4, Neutrophils # (Auto ) 4.4, Lymphocytes # (Auto) 0.5 L, Monocytes # (Auto) 0.2, Eosinophils # (Auto) 0.0, Basophils # (Auto) 0.0 Vital Signs Date Time Temp Pulse Resp B/P Pulse Ox O2 Delivery O2 Flow Rate FiO2 07/15/16 18:07 96.3 75 25 130/62 89 High Flow Cannula 10.0 I&O- Last 24 Hours up to 6 AM 07/15/16 06:00 Intake Total 240 ml Output Total 1000 ml Balance -760 ml MARIA LUISA WHITE MD Jul 15, 2016 18:21
[2016-07-15 19:23] LABS: BASO # 0.1 K/mm3 (0.0-0.2); BASO % 0.7 % (0.0-1.0); EOS % 0.2 % (0.0-3.0); LARGE UNSTAINED CELL # 0.1 K/mm3 (0.0-0.4); LARGE UNSTAINED CELL % 0.7 % (0.0-4.0); LYMPH # 0.3 K/mm3 (1.5-4.5); LYMPH % 3.4 % (24.0-44.0); MEAN CORPUSCULAR HGB CONC 35.1 g/dl (32.0-36.5); MEAN CORPUSCULAR VOLUME 88.3 fl (80.0-96.0); MONO # 0.3 K/mm3 (0.0-0.8); MONO % 3.9 % (0.0-5.0); NEUTROPHILS # 7.7 K/mm3 (1.8-7.7); NEUTROPHILS % 91.2 % (36.0-66.0); PLATELET COUNT, AUTOMATED 289 k/mm3 (150-450); RED CELL DISTRIBUTION WIDTH 15.6 % (11.5-14.5); WHITE BLOOD COUNT 8.5 K/mm3 (4.0-10.0)
--- NOTE | 2016-07-15 19:39 | REP ---
Clinical: Increasing shortness of breath. Comparison: 07/14/2016. Findings: Diffuse pulmonary edema is appreciated and increased from prior examination. Layering effusions cannot be excluded. No pneumothorax. Skeletal structures intact. Mediastinum and cardiac silhouette stable. Impression: Moderate pulmonary edema increased from prior examination Signed by Jay Luciano MD 07/15/2016 07:31 P
[2016-07-15 19:42] LABS: CALCIUM LEVEL 7.9 MG/DL (8.8-10.2); CREATININE FOR GFR 1.75 MG/DL (0.70-1.30); GLOMERULAR FILTRATION RATE 40.7 (>42); POTASSIUM SERUM 5.1 MEQ/L (3.5-5.1)
--- NOTE | 2016-07-15 19:51 | IPN ---
CARDIOLOGY PROGRESS NOTE: 07/15/2015 I saw Mr. Zambrano initially in the emergency room early this morning. He was doing relatively well. He was still complaining about shortness of breath and was denying any chest discomfort, but he developed atrial fibrillation overnight. We changed the atenolol to metoprolol 25 mg every 6 hours with holding parameters. He apparently was doing relatively well but then suddenly had an episode of bradycardia and became progressively more short of breath. It was during the process when he was getting blood transfusion. He was eventually brought to intensive care unit. When I saw the patient in the intensive unit in the evening hours he was in significant respiratory distress, but he was able to talk in full sentences. Denied any chest discomfort. He was on high-flow nasal cannula. O2 saturation was 90%. Blood pressure 130/62, heart rate is in 70s. He is afebrile. Jugular venous pressure is quite high, at least 5-6 cm above clavicle. Lungs reveal bilateral expiratory wheezes. I do not appreciate any rhonchi or crackles. Heart: Very muffled heart sound behind the respiratory sounds, but otherwise regular. I do not appreciate any murmur or gallop, but again the cardiac sounds are completely overshadowed by respiratory sounds. Abdomen is soft, nontender. There is no peripheral edema. Neurologic: He is intact. LABORATORY: This morning his sodium was 122, BUN 43, creatinine 1.5. Glucose was 330. Cardiac enzymes were the down to 2.2 troponin. He peaked yesterday afternoon 4.1. Albumin is 3.0. CBC this morning: hemoglobin 7.2, hematocrit 20 and platelet count 290,000. ECG from this morning reveals atrial fibrillation with mildly uncontrolled rate and no convincing ischemic abnormalities even though there are subtle precordial ST-segment depressions. ASSESSMENT/PLAN: Mr. Zambrano is a 75-year-old man who came with aze-JG-ayyorbhup myocardial infarction. It probably occurred the night before the admission when was his last chest discomfort. He denies any recurrence of chest discomfort since. Now he struggles principally with dyspnea. Even though the initial impression was that of pneumonia, the followup chest x-ray from this afternoon definitely looks more like congestive heart failure. On my orders he already had a Suarez placed and there was over 400 mL in his bladder and another about 200 mL he made since. I am going to give him additional 40 mg of IV Lasix and I will start him on IV nitroglycerin with holding parameters for low blood pressure. He has been on aspirin and therapeutic dose of Lovenox. He will also receive full dose of Solu-Medrol and he has been receiving statin. I am hoping that with this intervention his condition will gradually improve. Unfortunately, cardiac catheterization was denied by interventional cardiology principally because of unresolved etiology of his anemia. He was guaiac-negative stools and I do believe that it is likely that it has dropped since yesterday, and is principally related to hemodilution. Will see what the follow up numbers will be. His condition is certainly guarded at best and numerous complications are possible. He is DO NOT INTUBATE (DNI), DO NOT RESUSCITATE (DNR). ANGELA
[2016-07-15] MEDS: NITROGLYCERIN/D5W 100MCG/ML 25 MG in APPROPRIATE DILUENT 1 EA IV SCH (20:44)
[2016-07-15] MEDS: ATORVASTATIN 20 MG TAB PO SCH (21:14)
[2016-07-15] MEDS: LEVEMIR (INSULIN DETEMIR) 1 UNITS/0.01ML SC SCH (21:15)
[2016-07-16] VITALS (65 sets, daily range): BP systolic 95–163; BP diastolic 51–113; O2SAT 99
[2016-07-16] MEDS: METOPROLOL TART 25 MG TABLET PO SCH ×6 (00:17→23:47)
[2016-07-16] MEDS ORDERED: LORazepam 2 MG/ML VIAL (J2060) IV STA (01:26)
[2016-07-16] MEDS: IPRATROPIUM 0.5MG/ALBUTEROL 2.5MG INH SOL UD 3ML (DUONEB)(J7620) NEB SCH ×4 (02:09→20:01)
[2016-07-16] MEDS: ENOXAPARIN 100MG/1ML SYRINGE (J1650) SC SCH ×2 (05:46→17:24)
[2016-07-16] MEDS: NITROGLYCERIN/D5W 100MCG/ML 25 MG in APPROPRIATE DILUENT 1 EA IV SCH ×2 (05:49→11:48)
[2016-07-16 05:50] LABS: MEAN CORPUSCULAR HGB CONC 35.9 g/dl (32.0-36.5); MEAN CORPUSCULAR VOLUME 89.2 fl (80.0-96.0); RED CELL DISTRIBUTION WIDTH 14.7 % (11.5-14.5); WHITE BLOOD COUNT 10.8 K/mm3 (4.0-10.0)
[2016-07-16 05:56] LABS: ALBUMIN/GLOBULIN RATIO 0.91 (1.00-1.93); BILIRUBIN,TOTAL 0.6 MG/DL (0.2-1.0); CREATININE FOR GFR 1.57 MG/DL (0.70-1.30); GLOMERULAR FILTRATION RATE 46.1 (>42); POTASSIUM SERUM 4.8 MEQ/L (3.5-5.1); TOTAL PROTEIN 6.3 GM/DL (6.4-8.2)
[2016-07-16 06:53] LABS: ABG BASE EXCESS -5.8 (-2.0-2.0); ABG HCO3 20.9 MEQ/L (22.0-26.0); ABG PARTIAL PRESSURE CO2 47.2 mmHg (35.0-45.0); ABG PARTIAL PRESSURE O2 70.7 mmHg (75.0-100.0); ABG STANDARD HCO3 19.6 MEQ/L (22.0-26.0); ABG TOTAL CO2 22.4 MEQ/L (23.0-31.0); ABG pH (ARTERIAL) 7.265 UNITS (7.350-7.450)
--- NOTE | 2016-07-16 07:44 | IPN ---
DATE: 07/16/2016 Mr. Zambrano apparently had a rough night. He was progressively more agitated and eventually received Ativan, after which, he slept for most of the night, but this morning he is confused and he was trying to pull out his lines. When I try to talk to him he seems to be partially oriented. He denies any chest discomfort, but reports that it is very difficult to breathe. On many questions though it appears that he is not completely understanding or processing the information. Blood pressure 123/87. Heart rate has been in the 70s. He is in sinus rhythm. Saturation is mid to high 80s on high flow cannula nasally applied. He is afebrile. His fluid balance yesterday was approximately 900 mL negative. He made about 320 mL urine today. Weight is documented 93.1. He is restless and agitated. His jugular venous pulse (JVP) is still high. Lungs reveal principally end expiratory wheezes throughout, fair air movement. Heart exam somewhat muffled heart sound behind loud respiratory sounds, but I do not appreciate any gallop or rub. Abdomen is soft, nontender. There is no peripheral edema. Neurologically, as above. Laboratory-ramos, he had ABGs at 06:43 this morning with pH 7.26, pCO2 47, pO2 71 and saturation 91%. Basic metabolic panel: Sodium 124, potassium 4.8, BUN 51, creatinine 1.6, glucose 235 and troponin is 2.5. CBC: hemoglobin 8.3, hematocrit 23 and platelet count 253,000. INR is 1.0. His troponin has been down since yesterday. No chest x-ray this morning yet. ASSESSMENT AND PLAN: Mr. Zambrano is a 75-year-old man who came with [id number] infarction together with likely pneumonia and profound anemia. Currently, the situation is further complicated by progressive congestive heart failure and respiratory failure. I will give him a single dose of Lasix, but I am afraid that he will need at least noninvasive respiratory support and he is DO NOT INTUBATE/DO NOT RESUSCITATE (DNI/DNR). Will contact critical care for assistance. Otherwise, I will continue his remaining medications. The prognosis certainly is deteriorating.
[2016-07-16] MEDS ORDERED: FUROSEMIDE 100 MG/10 ML VIAL (J1940) IV ONE (07:45)
[2016-07-16] MEDS: methylPREDNISolone INJ 125 MG/2 ML VIAL (J2930) IV SCH (07:51)
[2016-07-16] MEDS: HumaLOG INSULIN (NovoLOG) PER UNIT SC SCH ×4 (07:51→20:38)
[2016-07-16] MEDS: ADVAIR DISKUS 250/50 INH PWD INH SCH ×2 (08:27→20:39)
[2016-07-16] MEDS ORDERED: METOPROLOL SUCC *XL* 25MG TAB (TopROL *XL*) PO SCH (09:00)
[2016-07-16] MEDS ORDERED: LEVEMIR (INSULIN DETEMIR) 1 UNITS/0.01ML SC SCH ×3 (09:00→21:00)
--- NOTE | 2016-07-16 09:03 | IPNPDOC ---
Assessment/Plan Date Seen The patient was seen on 07/16/16. Problems Problems: (1) Pneumonia Status: Acute Response to Treatment: Stable Problem Specific Plan: Monitor Clinically Problem Text: ON IV avelox D2, cont with nebs 1/2 blood cultures positive for gram positive rods. (2) NSTEMI (non-ST elevated myocardial infarction) Status: Acute Discussed With: Lathe Machine Operator Problem Specific Plan: Monitor Clinically, Repeat Labs Problem Text: Dr Duran is seeing the pt, recommends adjusting beta faith, will start Metoprolol tartrate 25 mg po Q6h with hold parameters. Cont with ASA 325 mg, Lovenox 100 mg BID, Lipitor (will change to High dose). [facility] has been contacted, recommend stabilizing pt prior to transfer. 07/16/15 - Tolerating Metoprolol Continue ASA 325/ Therapeutic Lovenox Consider transfer to [facility] if he stabilizes (3) Acute CHF (congestive heart failure) Status: Acute Problem Text: Likely flash pulmonary edema secondary to ME IV Lasix x 1 given at 750 am - not much urine output yet (4) Acute respiratory failure with hypoxemia Status: Acute Problem Text: Secondary to Acute CHF and pneumonia Continue Lasix Continue Avelox On CPAP per Chicken Fancier. 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 07/16 - S/P 2 units PRBC Hgb improved some. Continue to monitor. Check stool guaiac. (7) HTN (hypertension) Status: Chronic Response to Treatment: Stable Problem Specific Plan: Monitor Clinically Problem Text: Controlled on current medication regimen. (8) DM2 (diabetes mellitus, type 2) Status: Chronic Response to Treatment: Stable Problem Specific Plan: Monitor Clinically Problem Text: BS persistently high in 300s - 400s; this may be due to acute infection. If they continue to remain high, we may need to increase his dose of levemir. 07/16 - Blood sugars remain high. Getting Solumedrol. Increase Levemir (9) Nicotine dependence Status: Chronic Problem Specific Plan: Monitor Clinically Problem Text: Enc cessation. (10) COPD (chronic obstructive pulmonary disease) Status: Chronic Problem Specific Plan: Monitor Clinically Problem Text: kane Moore. Stop Solumedrol - no clear role for this currently and it is causing hyperglycemia (11) SIADH (syndrome of inappropriate ADH production) Status: Chronic Response to Treatment: Stable Problem Text: Chronically low Na+ - baseline around 125 SIADH per urine and serum Osmolality in June (12) Acute renal failure Status: Acute Plan / VTE VTE Prophylaxis Ordered?: Yes Plan / Urinary Catheter Reason for insertion/continuin: Critical Pt monitoring Subjective Review of Systems CC/HPI The patient is a 75-year-old male admitted with a reason for visit of Diff Breathing. Events since last encounter Patient was confused overnight. Had trouble maintaining his oxygen level. Now on BIPAP. Pulmonary: Denies: Cough, Dyspnea Cardiovascular: Denies: Chest Pain, Palpitations Gastrointestinal: Reports: Abdominal Pain (He reported some abdominal pain on exam this am, but no clear site of tenderness), Denies: Constipation, Diarrhea, Nausea, Vomiting Genitourinary: Denies: Dysuria Objective Physical Examination General Exam: Positive: Other (On BIPAP. Drowsy, but arousable, confused) Chest Exam: Positive: Rales (+ Bibasilar rales), Negative: Wheezing Heart Exam: Positive: Rate Normal, Negative: Murmurs Abdomen Exam: Positive: Normal bowel sounds, Soft, Negative: Tenderness Male Exam: Positive: Edema Extremity Exam: Negative: Edema Vital Signs/I&O Vital Signs Date Time Temp Pulse Resp B/P Pulse Ox O2 Delivery O2 Flow Rate FiO2 07/16/16 06:45 78 123/87 88 High Flow Cannula 10.0 07/16/16 05:30 96.2 28 I&O- Last 24 Hours up to 6 AM 07/16/16 06:00 Intake Total 1266 ml Output Total 1845 ml Balance -579 ml Laboratory Data Labs 24H Laboratory Tests 2 07/15/16 12:04: Bedside Glucose (Misc Panel) 428H 07/15/16 14:53: Bedside Glucose (Misc Panel) 438H 07/15/16 15:44: Bedside Glucose (Misc Panel) 412H 07/15/16 17:45: Bedside Glucose (Misc Panel) 363H 07/15/16 18:49: Anion Gap 11, Blood Urea Nitrogen 52H, Creatinine 1.75H, Sodium Level 123L, Potassium Level 5.1, Chloride Level 89L, Carbon Dioxide Level 23, Calcium Level 7.9L, Total Creatine Kinase 365H, Creatine Kinase MB 18.4H, Creatine Kinase MB Relative Index 5.04H, Glomerular Filtration Rate 40.7L, Troponin I 2.67*H 07/15/16 18:50: B-Type Natriuretic Peptide 560H, White Blood Count 8.5, Red Blood Count 2.82L, Hemoglobin 8.7L, Hematocrit 24.9L, Mean Corpuscular Volume 88.3, Mean Corpuscular Hemoglobin 31.0, Mean Corpuscular Hemoglobin Concent 35.1, Red Cell Distribution Width 15.6H, Platelet Count 289, Neutrophils (%) (Auto) 91.2H, Lymphocytes (%) (Auto) 3.4L, Monocytes (%) (Auto) 3.9, Eosinophils (%) (Auto) 0.2, Basophils (%) (Auto) 0.7, Neutrophils # (Auto) 7.7, Lymphocytes # (Auto) 0.3L, Monocytes # (Auto) 0.3, Eosinophils # (Auto) 0.0, Basophils # (Auto) 0.1, Large Unclassified Cells # 0.1, Large Unclassified Cells % 0.7 07/15/16 19:50: Bedside Glucose (Misc Panel) 304H 07/16/16 04:58: Anion Gap 13, Blood Urea Nitrogen 51H, Creatinine 1.57H, Sodium Level 124L, Potassium Level 4.8, Chloride Level 89L, Carbon Dioxide Level 22, Calcium Level 8.0L, Total Creatine Kinase 290, Creatine Kinase MB 18.7H, Creatine Kinase MB Relative Index 6.44H, Glomerular Filtration Rate 46.1, Troponin I 2.54*H, Aspartate Amino Transf (AST/SGOT) 49H, Alanine Aminotransferase (ALT/SGPT) 54, Alkaline Phosphatase 47, Total Bilirubin 0.6, Total Protein 6.3L, Albumin 3.0L, Albumin/Globulin Ratio 0.91L 07/16/16 06:43: Arterial Blood pH 7.265L, Arterial Blood Partial Pressure CO2 47.2H, Arterial Blood Partial Pressure O2 70.7L, Arterial Blood Total CO2 22.4L, Arterial Blood HCO3 20.9L, Arterial Blood Base Excess -5.8L, Arterial Blood Oxygen Saturation 91.0L, Blood Gas Bicarbonate Standard 19.6L CBC/BMP Laboratory Tests 07/15/16 18:49 Calcium Level 7.9 L, Total Creatine Kinase 365 H 07/15/16 18:50 Red Blood Count 2.82 L, Mean Corpuscular Volume 88.3, Mean Corpuscular Hemoglobin 31.0, Mean Corpuscular Hemoglobin Concent 35.1, Red Cell Distribution Width 15.6 H, Neutrophils (%) (Auto) 91.2 H, Lymphocytes (%) (Auto ) 3.4 L, Monocytes (%) (Auto) 3.9, Eosinophils (%) (Auto) 0.2, Basophils (%) ( Auto) 0.7, Neutrophils # (Auto) 7.7, Lymphocytes # (Auto) 0.3 L, Monocytes # ( Auto) 0.3, Eosinophils # (Auto) 0.0, Basophils # (Auto) 0.1 07/16/16 04:58 Calcium Level 8.0 L, Red Blood Count 2.60 L, Mean Corpuscular Volume 89.2, Mean Corpuscular Hemoglobin 32.0, Mean Corpuscular Hemoglobin Concent 35.9, Red Cell Distribution Width 14.7 H, Aspartate Amino Transf (AST/SGOT) 49 H, Alanine Aminotransferase (ALT/SGPT) 54, Alkaline Phosphatase 47, Total Bilirubin 0.6, Total Protein 6.3 L, Albumin 3.0 L FSBS Laboratory Tests Test 07/15/16 12:04 07/15/16 14:53 07/15/16 15:44 07/15/16 17:45 Range/Units Bedside Glucose (Misc Panel) 428 438 412 363 83-110 MG/DL Test 07/15/16 19:50 Range/Units Bedside Glucose (Misc Panel) 304 83-110 MG/DL Microbiology Microbiology 07/14/16 Blood Culture - Preliminary, Resulted No growth after 24 hours . All specim... 07/14/16 Blood Culture - Final, Complete Bacillus Sp., Not Anthracis 07/15/16 MRSA Screen, Received Pending 07/14/16 Influenza Virus Type A Antigen - Final, Complete 07/14/16 Influenza Virus Type B Antigen - Final, Complete ADRIANA ASHRAF PA-C Jul 16, 2016 09:03
[2016-07-16] MEDS ORDERED: ATROPINE SULF 1MG/10ML SYRINGE (J0461) ONE (09:07)
--- NOTE | 2016-07-16 09:09 | ECGEPIP ---
Stationary ECG Study [facility] Test Date: 2016-07-15 Pat Name: TAMIA AUGUSTIN Department: Room: [place] [address] Gender: M Steward/Stewardess Deck: gee : 1940 Requested By: PEREZ Espinosa Order Number: [id number] Reading MD: Sushil Franks Measurements Intervals [place] Rate: 113 P: CT: 0 QRS: -16 QRSD: 100 T: 34 QT: 326 QTc: 448 Interpretive Statements ATRIAL FIBRILLATION WITH RAPID VENTRICULAR RESPONSE NONSPECIFIC ST & T-WAVE ABNORMALITY ABNORMAL RHYTHM ECG Electronically Signed On 07-16-2016 9:09:10 EST by Sushil Franks
--- NOTE | 2016-07-16 09:31 | ECGEPIP ---
Stationary ECG Study [facility] Test Date: 2016-07-16 Pat Name: TAMIA AUGUSTIN Department: Room: [place] [address] Gender: M Lead Medical Technologist: RUPAL : 1940 Requested By: Gurpreet Duran Order Number: [id number] Reading MD: Sushil Franks Measurements Intervals [place] Rate: 78 P: 5 DE: 188 QRS: 0 QRSD: 102 T: 31 QT: 372 QTc: 426 Interpretive Statements SINUS RHYTHM NONSPECIFIC ST & T-WAVE ABNORMALITY motion artifact Electronically Signed On 07-16-2016 9:31:33 EST by Sushil Franks
--- NOTE | 2016-07-16 09:41 | CR ---
DATE OF SERVICE: 07/16/2016 REASON FOR CONSULTATION: Bilateral positive airway pressure (BiPAP) management in a patient with acute hypoxic hypercarbic respiratory failure. REQUESTING PROVIDER: Gurpreet Duran MD CRITICAL CARE TIME: Was 51 minutes. This excludes all procedures. HISTORY OF PRESENT ILLNESS: Mr. Zambrano is a 75-year-old male known to Dr. Duran with significant noncompliance. Although he was scheduled to have an appointment with me, he did not show for this appointment. He has an established history of coronary artery disease and presented to the hospital after not feeling well for 4-5 days. He was more short of breath, had cold chills, was diaphoretic, and had heavy chest discomfort which was retrosternal in nature without radiation. He was found to have an acute myocardial infarction in the emergency room and thought to have pneumonia based on findings of the left upper lobe infiltrate on chest x-ray. He was admitted on 07/14/2016. I was called this morning and 08:00 a.m. to see the patient for his respiratory distress. On my arrival to the room, the patient was already placed on continuous positive airway pressure (CPAP). He had been on 10 liters of high-flow oxygen, saturating in the high 80% range prior to being converted to CPAP. He was on CPAP of 10 with a good oxygen saturation. His arterial blood gas showed a pH of 7.27, pCO2 of 47.2, and a pAO2 of 71, suggesting a combined metabolic respiratory acidosis. I, therefore, switched him to bilevel noninvasive therapy also because of his work of breathing and abdominal muscle use. He was unable to keep his eyes open long enough to have a conversation. He was unable to provide me any significant history. Therefore, I have obtained the history from the chart. The patient, of note, was recently hospitalized due to significant hyponatremia. Because of his acute myocardial infarction ([place]) in the emergency room, [facility] was contacted. However, they refused to take him to the catheterization laboratory because of his "pneumonia, hyponatremia, and renal insufficiency." They felt he needed to be medically optimized prior to referral. PAST MEDICAL HISTORY: Is significant for hypertension, dyslipidemia, diabetes, hyponatremia, angina, chronic obstructive pulmonary disease (COPD). CURRENT MEDICATIONS: Include: - full-dose Lovenox - Lipitor - Solu-Medrol - Lopressor - Zofran - Levemir - nitroglycerin drip - Tylenol - moxifloxacin - lispro - aspirin - nitroglycerin - Advair - Proscar - Zantac - Cepacol - Protonix ALLERGIES: PENICILLIN. PHYSICAL EXAMINATION: Temperature is 96.2, pulse is 77, respiratory rate is 28, blood pressure is 156/72, oxygen saturations was initially 88% on high-flow 10 liters, now 97% on CPAP at 10 cm water pressure. Intake and output (I and O): 1246 in, 2125 out, net negative 879. General: The patient is obtunded but arouses to voice. He is CPAP using accessory muscle use with paradoxical breathing. HEENT: Sclerae clear. Pupils are approximately 5 mm. Neck is supple. No tracheal deviation. He does have elevated jugular venous pressure (JVP). No cervical, supraclavicular, or axillary adenopathy. Cardiac: Distant S1, S2. I do not auscultate any murmur, rub, or gallop. Pulmonary: Decreased breath sounds throughout both lung espinoza. There is a prolongation of the expiratory phase. There is accessory muscle use with paradoxical abdominal breathing. His abdomen is slightly distended but soft. I do not palpate any discernible hepatosplenomegaly. He does have a reducible umbilical hernia. He has hypoactive bowel sounds. No rebound or guarding. Laboratory evaluation shows: White blood cell count of 10.8, hemoglobin of 8.3, platelet count 253. Arterial blood gas shows a pH of 7.27, pCO2 of 47.2, pO2 of 71. Albumin of 3.0, troponin remains elevated to 2.54, sodium is 124, potassium 4.8, chloride is 89, bicarbonate is 22, BUN of 51, creatinine 1.59, glucose is 304. IMPRESSION: 1. Acute hypoxic hypercarbic respiratory failure. Will switched to bilevel. Hopefully, this will help with his work of breathing. The patient is DO NOT RESUSCITATE (DNR), DO NOT INTUBATE (DNI); and, therefore, no further invasive mechanical ventilation will be performed. I will repeat an arterial blood gas in hour to monitor for improvement. He is taking approximately 450-500 mL tidal volumes on these settings. 2. Anion gap acidosis, possibly partially from uremia. I do not have an alternative cause for his anion gap acidosis. Will continue to monitor. 3. Congestive heart failure (CHF), coronary artery disease, with acute myocardial infarction and troponin leak. Managed by cardiology. 4. Diabetes with hyperglycemia. If he does not have better control of his blood glucose, would consider an insulin drip. 5. Renal failure. Would be cautious with the use of Lovenox in renal failure. Will continue to monitor urine output. 6. Pulmonary infiltrate. Current chest x-ray this morning shows diffuse vascular congestion consistent with acute pulmonary edema. However, yesterday's chest x-ray did show a discrepancy between the left and the right. Therefore, there is a possible underlying pneumonia. At this point in time, is on Avelox. Will continue this medication and monitor for signs of sepsis. 7. Anemia. No known cause at this point in time, possibly minimally secondary to dilution. Anemia workup per primary team. 8. Gastrointestinal (GI) prophylaxis with Protonix. 9. Deep venous thrombosis (DVT) prophylaxis. The patient is on full-dose Lovenox.
[2016-07-16 10:02] LABS: ABG BASE EXCESS -8.1 (-2.0-2.0); ABG HCO3 17.2 MEQ/L (22.0-26.0); ABG STANDARD HCO3 17.8 MEQ/L (22.0-26.0); ABG TOTAL CO2 18.2 MEQ/L (23.0-31.0); ABG pH (ARTERIAL) 7.321 UNITS (7.350-7.450)
[2016-07-16 10:11] LABS: PERCENT SATURATION 20.1 % (19.7-37.4)
[2016-07-16] MEDS: PANTOPRAZOLE 40MG INJ (PROTONIX) (C9113) IV SCH (10:59)
[2016-07-16] MEDS: ASPIRIN 325 MG TAB PO SCH (11:00)
[2016-07-16] MEDS: MOXIFLOXACIN HCL 400 MG in APPROPRIATE DILUENT 1 EA IV SCH (11:01)
[2016-07-16] MEDS: FAMOTIDINE IV SCH ×2 (11:49→23:45)
[2016-07-16] MEDS: DILUENT IV SCH ×2 (11:49→23:45)
[2016-07-16] MEDS ORDERED: SLF 3 ML SYR IV PRN (13:30)
[2016-07-16] MEDS: SLF 3 ML SYR IV SCH ×2 (14:07→20:38)
[2016-07-16 15:42] LABS: CALCIUM LEVEL 8.2 MG/DL (8.8-10.2); CREATININE FOR GFR 1.66 MG/DL (0.70-1.30); GLOMERULAR FILTRATION RATE 43.2 (>42); POTASSIUM SERUM 4.5 MEQ/L (3.5-5.1)
[2016-07-16] MEDS: FUROSEMIDE 100 MG/10 ML VIAL (J1940) IV SCH ×2 (16:17→23:46)
--- NOTE | 2016-07-16 19:02 | ECHO ---
DATE OF PROCEDURE: 07/16/2016 REFERRING PHYSICIAN: Dr. Duran and Boo Wilkinson Myself and on work this INDICATION: NSTEMI. HEIGHT: 170 cm WEIGHT: 88 kg. DIMENSIONS: IVS: 1.3 LV: 4.8 LVPW: 1.2 LA: 5.1 Aorta: 3.2 FINDINGS: Study is of rather limited technical quality with difficult visualization. Left ventricle is of normal size. Apical segments were poorly seen and I cannot rule out apical wall motion abnormality but overall left ventricle ejection fraction is preserved or mildly reduced. Right ventricle does not appear grossly enlarged. Left atrium is severely enlarged. Right atrium was poorly seen but grossly appears normal. Aortic valve is sclerotic. There is reasonably preserved mobility of cusps though. Mitral valve exhibits degenerative abnormalities with mitral annular calcifications. Tricuspid and pulmonic valves appear normal. No pericardial effusion is noted. Inferior vena cava is a rather dilated and has minimal collapse with respiration indicative of high central venous pressure. This is in setting of the patient being on continuous positive airway pressure (CPAP). Aortic root is normal aortic arch and abdominal aorta were not visualized. Doppler interrogation of aortic valve reveals no insufficiency and minimal stenosis with mean gradient 5 mmHg. There is mild mitral insufficiency and mild tricuspid insufficiency. Quality of tricuspid regurgitation (TR) jet was not sufficient to adequately estimate pulmonary artery pressure. Trace pulmonic insufficiency is also noted. Mitral inflow pattern and tissue Doppler imaging of mitral annulus reveal grade 2 diastolic dysfunction suggestive of high left ventricular end-diastolic pressure. CONCLUSIONS: 1. Study is of limited technical quality. 2. Normal left ventricle (LV) size with mild left ventricular hypertrophy (LVH) and overall normal or near normal LV systolic function. Cannot rule out wall motion abnormality involving apex which was poorly seen. 3. Aortic sclerosis but no significant stenosis and or insufficiency. 4. Mild mitral and tricuspid insufficiency. 5. High central venous pressure. 6. Unable to estimate pulmonary artery pressure . COMMENTS: Subacute bacterial endocarditis (SBE) prophylaxis is not recommended. MTDD
[2016-07-16] MEDS: ATORVASTATIN 20 MG TAB PO SCH (20:37)
[2016-07-17] VITALS (17 sets, daily range): BP systolic 86–154; BP diastolic 51–77; O2SAT 98–99
[2016-07-17] MEDS: IPRATROPIUM 0.5MG/ALBUTEROL 2.5MG INH SOL UD 3ML (DUONEB)(J7620) NEB SCH ×4 (02:05→21:13)
[2016-07-17] MEDS: METOPROLOL TART 25 MG TABLET PO SCH ×3 (05:27→16:52)
[2016-07-17] MEDS: SLF 3 ML SYR IV SCH ×3 (05:28→20:34)
[2016-07-17] MEDS: ENOXAPARIN 100MG/1ML SYRINGE (J1650) SC SCH ×2 (05:28→18:00)
[2016-07-17 05:37] LABS: MEAN CORPUSCULAR HEMOGLOBIN 31.8 pg (27.0-33.0); MEAN CORPUSCULAR VOLUME 88.5 fl (80.0-96.0); RED CELL DISTRIBUTION WIDTH 14.9 % (11.5-14.5); WHITE BLOOD COUNT 7.4 K/mm3 (4.0-10.0)
[2016-07-17 06:02] LABS: ALBUMIN 3.1 GM/DL (3.2-5.2); ALBUMIN/GLOBULIN RATIO 0.91 (1.00-1.93); BILIRUBIN,TOTAL 0.7 MG/DL (0.2-1.0); CALCIUM LEVEL 8.1 MG/DL (8.8-10.2); CREATININE FOR GFR 1.76 MG/DL (0.70-1.30); GLOMERULAR FILTRATION RATE 40.4 (>42); POTASSIUM SERUM 3.8 MEQ/L (3.5-5.1); TOTAL PROTEIN 6.5 GM/DL (6.4-8.2)
[2016-07-17] MEDS: HumaLOG INSULIN (NovoLOG) PER UNIT SC SCH ×4 (07:30→20:33)
[2016-07-17] MEDS: FUROSEMIDE 100 MG/10 ML VIAL (J1940) IV SCH ×2 (08:00→16:00)
--- NOTE | 2016-07-17 08:27 | IPN ---
DATE: 07/17/2016 Lawson is seen in intensive care unit (ICU). He was seen early this morning. He was still sleeping when I went it. Actually his was sleeping with her head on his shoulder and I did not want to disturb them. Per nursing staff, he had an uneventful night. He did not need the BiPAP the latter part of the overnight. PHYSICAL EXAMINATION: 135/71, pulse 83, respiratory rate 29, saturation. General appearance: Resting comfortably, sound asleep. I did not arouse him. Lungs: Decreased breath sounds. Heart: Regular rate and rhythm. Abdomen: Soft, obese, nontender, no peripheral edema. LABS: White count 7.4, hemoglobin 8.9, platelets 250. Sodium 126, potassium 3.8, BUN 47, creatinine 1.7, glucose 279. IMPRESSION: 1. Pneumonia, community acquired, on Avelox day #3. Blood cultures look like they grew out a contaminate bacillus. 2. Non-ST segment elevation myocardial infarction. Dr. Duran is consulted and seeing the patient as well. 3. Congestive heart failure likely flash pulmonary edema. Cardiology following. 4. Chronic kidney disease with acute kidney injury. Creatinine is rising slightly. Could be from the congestive heart failure or the hypoxemia. Daily labs ordered. 5. Acute respiratory failure with hypoxemia. Appreciate Dr. Solares's help. Uses CPAP at night, requiring less non-invasive ventilatory support. Has DO NOT RESUSCITATE/DO NOT INTUBATE status. 6. Acute blood loss anemia status post 2 units packed red blood cells, following daily hemoglobins. 7. Type 2 diabetes. Levemir dose increased yesterday. 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 9. Chronic obstructive pulmonary disease (COPD). Solu-Medrol was discontinued in the face of the hyperglycemia.
[2016-07-17] MEDS: ADVAIR DISKUS 250/50 INH PWD INH SCH ×2 (09:00→21:00)
[2016-07-17] MEDS: PANTOPRAZOLE 40MG INJ (PROTONIX) (C9113) IV SCH (09:00)
[2016-07-17] MEDS: LEVEMIR (INSULIN DETEMIR) 1 UNITS/0.01ML SC SCH ×2 (09:00→20:33)
[2016-07-17] MEDS: ASPIRIN 325 MG TAB PO SCH (09:00)
[2016-07-17] MEDS: FAMOTIDINE 20 MG TAB PO SCH ×2 (09:00→20:34)
[2016-07-17 09:03] LABS: ABG BASE EXCESS -0.1 (-2.0-2.0); ABG HCO3 24.2 MEQ/L (22.0-26.0); ABG PARTIAL PRESSURE CO2 37.9 mmHg (35.0-45.0); ABG PARTIAL PRESSURE O2 84.2 mmHg (75.0-100.0); ABG STANDARD HCO3 24.4 MEQ/L (22.0-26.0); ABG TOTAL CO2 25.4 MEQ/L (23.0-31.0); ABG pH (ARTERIAL) 7.423 UNITS (7.350-7.450)
[2016-07-17] MEDS: MOXIFLOXACIN HCL 400 MG in APPROPRIATE DILUENT 1 EA IV SCH (09:23)
--- NOTE | 2016-07-17 09:27 | REP ---
Clinical: Shortness of breath. Pulmonary edema. Comparison: 07/15/2016. Findings: Stable cardiomegaly is appreciated. Increased interstitial markings and indistinct pulmonary vasculature with cephalization is consistent with the given history of pulmonary edema, but appears considerably improved when compared to prior examination. Correlation is recommended. No focal consolidation, obvious effusion, or pneumothorax. Skeletal structures stable. Impression: Evidence for continued mild pulmonary edema considerably improved compared to prior examination. Signed by Jay Luciano MD 07/17/2016 09:19 A
--- NOTE | 2016-07-17 11:23 | IPNPDOC ---
[facility] Cardiology Progress Note Date of Service/Time The patient was seen on 07/17/16 at 10:55. Cardiology Progress Note Mr. Zambrano is a 75 y/o male who initially presented with SOB, chills and retrosternal chest pain that had been getting worse for the prior 5 days to admission. It was found on presentation to the ED that the pt. had sustained an NSTEMI. OBJECTIVE: PHYSICAL EXAMINATION: VITAL SIGNS: Please see below. GENERAL APPEARANCE: laying in bed with BIPAP, seems comfortable, orientated HEENT: normal s1 and s2, no murmurs or gallops appreciated LUNGS: end expiratory wheeze throughout lung field, otherwise CTA, no rhonchi or rales appreciated HEART: normal S1 and S2, no murmurs or gallops appreciated ABDOMEN: soft, non-distended, NABSx4, no organomegaly SKIN: intact, dry NEUROLOGICAL: no focal deficits appreciated PSYCHIATRIC: affect is appropriate LABORATORY WORK: Please see below. ASSESSMENT AND PLAN: Mr. Zambrano appeared to have a relatively good overnight, only requiring BIPAP during the later part of the evening. He is however currently on BIPAP that was placed around 11 AM today for his "nap time". His creatine unfortunately has gotten worse, 1.76 from 1.66 and this may be due in part to his 80 mg q8h Lasix therapy, he was negative 1.3 L over the pat 24 hours. Would suggest changing his Lasix to daily dosing in light of his kidney function. His weight is documented today at 92.1 kg. His blood pressure is currently 112/16, HR is in the 70's and normal sinus rhythm. Pt is currently on metoprolol 25 mg q6h. His lung exam reveals some diffuse expiratory wheezes. He had good oxygen saturation in 90's this morning on 3L nasal canula but was put back on BIPAP during his naps as per ekg tech recommendation. The pt seems to be doing much better this morning and is arousable and oriented. He is denying CP, SOB or palpitations. His Hg is stable, 8.9 from 8.3 one day ago. His ECHO was essentially normal with normal left ventricular systolic function, mild LVH, mitral and tricuspid insufficency, aortic sclerosis and high CVP. Will continue to monitor, would not suggest any additional changes at this time. Vital Signs/I&O VS/I&O Vital Signs Date Time Temp Pulse Resp B/P Pulse Ox O2 Delivery O2 Flow Rate FiO2 07/17/16 10:00 75 20 101/59 99 Nasal Cannula 3.0 07/17/16 08:24 30 07/17/16 08:00 96.8 I&O- Last 24 Hours up to 6 AM 07/17/16 06:00 Intake Total 1154 ml Output Total 3600 ml Balance -2446 ml Laboratory Data 24H LABS Laboratory Tests 2 07/16/16 12:05: Bedside Glucose (Misc Panel) 334H 07/16/16 15:00: Anion Gap 14, Blood Urea Nitrogen 56H, Creatinine 1.66H, Sodium Level 124L, Potassium Level 4.5, Chloride Level 89L, Carbon Dioxide Level 21, Calcium Level 8.2L, Glomerular Filtration Rate 43.2 07/16/16 17:14: Bedside Glucose (Misc Panel) 307H 07/16/16 20:27: Bedside Glucose (Misc Panel) 333H 07/17/16 05:21: Blood Urea Nitrogen 47H, Creatinine 1.76H, Sodium Level 126L, Potassium Level 3.8, Chloride Level 89L, Carbon Dioxide Level 24, Calcium Level 8.1L, Aspartate Amino Transf (AST/SGOT) 30, Alanine Aminotransferase (ALT/SGPT) 51, Alkaline Phosphatase 45, Total Bilirubin 0.7, Total Protein 6.5, Albumin 3.1L, Albumin/ Globulin Ratio 0.91L, Anion Gap 13, Glomerular Filtration Rate 40.4L 07/17/16 08:43: Arterial Blood pH 7.423, Arterial Blood Partial Pressure CO2 37.9, Arterial Blood Partial Pressure O2 84.2, Arterial Blood Total CO2 25.4, Arterial Blood HCO3 24.2, Arterial Blood Base Excess -0.1, Arterial Blood Oxygen Saturation 96.1, Blood Gas Bicarbonate Standard 24.4 CBC/BMP Laboratory Tests 07/16/16 15:00 Calcium Level 8.2 L 07/17/16 05:21 Calcium Level 8.1 L, Aspartate Amino Transf (AST/SGOT) 30, Alanine Aminotransferase (ALT/SGPT) 51, Alkaline Phosphatase 45, Total Bilirubin 0.7, Total Protein 6.5, Albumin 3.1 L, Red Blood Count 2.80 L, Mean Corpuscular Volume 88.5, Mean Corpuscular Hemoglobin 31.8, Mean Corpuscular Hemoglobin Concent 36.0, Red Cell Distribution Width 14.9 H FSBS Laboratory Tests Test 07/16/16 12:05 07/16/16 17:14 07/16/16 20:27 Range/Units Bedside Glucose (Misc Panel) 334 307 333 83-110 MG/DL Microbiology Microbiology 07/14/16 Blood Culture - Preliminary, Resulted No Growth after 72 hours. All specime... 07/14/16 Blood Culture - Final, Complete Bacillus Sp., Not Anthracis 07/15/16 MRSA Screen - Final, Complete 07/14/16 Influenza Virus Type A Antigen - Final, Complete 07/14/16 Influenza Virus Type B Antigen - Final, Complete GME ATTESTATION GME ATTESTATION My preceptor for this patient encounter was physically present in the building during the encounter and was fully available. As needed, all aspects of the patient interview, examination, medical decision making process, and medical care plan development were reviewed and approved by the preceptor. Preceptor is aware and concurs with the plan as stated in the body of this note and will attest to such by his/her cosignature. LEYDA ORR DO Jul 17, 2016 11:23
[2016-07-17] MEDS ORDERED: AMIODARONE HCL 150 MG in APPROPRIATE DILUENT 1 EA IV STA (16:43)
--- NOTE | 2016-07-17 17:37 | ECGEPIP ---
Stationary ECG Study [facility] Test Date: 2016-07-17 Pat Name: TAMIA AUGUSTIN Department: Room: [place] [address] Gender: M Database Security Expert: ZO : [id number] Requested By: Gurpreet Duran Order Number: [id number] Reading MD: Sushil Franks Measurements Intervals [place] Rate: 125 P: HI: 0 QRS: -17 QRSD: 92 T: 81 QT: 302 QTc: 437 Interpretive Statements ATRIAL FIBRILLATION WITH RAPID VENTRICULAR RESPONSE NONSPECIFIC ST & T-WAVE ABNORMALITY ABNORMAL RHYTHM ECG Electronically Signed On 07-17-2016 17:37:46 EST by Sushil Franks
--- NOTE | 2016-07-17 17:38 | EDDOCDS ---
Physician Documentation [facility] Name: Lawson Zambrano Age: 75 yrs Sex: Male : 1940 Arrival Date: 07/14/2016 Time: 09:03 Bed Admit Hold Private MD: Disposition: 07/14 12:32 Critical Care:. ml Disposition: 07/14/16 12:32 Hospitalization ordered by Bharat Muse for Inpatient Admission. Preliminary diagnosis are Chronic obstructive pulmonary disease with (acute) exacerbation, Pneumonia, unspecified organism, Acute systolic (congestive) heart failure, Anemia, unspecified, Hypo-osmolality and hyponatremia, Non-ST elevation (NSTEMI) myocardial infarction. - Bed requested for M ICU. - Status is Inpatient Admission. deg - Condition is Stable. - Problem is new. - Symptoms are unchanged. Historical: - Allergies: PENICILLINS (Hives); - Home Meds: 1. losartan-hydrochlorothiazide 100-25 mg oral tab 0.5 tab once daily 2. aspirin 81 mg Oral tab 2 tabs once daily (Last dose: 07/13/2016) 3. atenolol 50 mg Oral tab 1 tab once daily (Last dose: 07/13/2016) 4. atorvastatin 20 mg oral tab 1 tab once daily (Last dose: 07/13/2016) 5. ranitidine HCl 150 mg Oral tab 1 tab once daily (Last dose: 07/13/2016) 6. Vitamin D2 1,000 unit oral cap (Last dose: 07/13/2016) 7. metformin 500 mg Oral tab 0.5 tab 2 times per day (Last dose: 07/13/2016) 8. finasteride 5 mg oral tab 1 tab once daily 9. Advair Diskus 250-50 mcg/dose Inhl dsdv 1 puff 2 times per day (Last dose: 07/13/2016) - PMHx: CAD; Diabetes - IDDM: controlled; Emphysema; GERD; Hypercholesterolemia; Hypertension; Nicotine Abuse; Polydispsia; Stroke; - PSHx: Appendectomy; - Social history: Smoking status: No barriers to communication noted, The patient speaks fluent Algerian, Speaks appropriately for age, Smoking status: Patient uses tobacco products, heavy tobacco smoker. - Family history: Not pertinent. - : The pt / caregiver states he / she is not on anticoagulants. Home medication list is obtained from family members. - Exposure Risk Screening:: None identified. Vital Signs: 09:12 BP 134 / 86 (auto/); jo3 09:13 Pulse 80 MON; Pulse Ox 93% ; jo3 09:14 BP 134 / 86; Pulse 80; Resp 20; Temp 98.5(TE); Pulse Ox 91% 8% ; Pain 0/10; nb2 09:27 BP 128 / 60 (auto/); jo3 09:27 Pulse 80 MON; Pulse Ox 94% ; jo3 09:28 Weight 88 kg / 194.01 lbs; Height 5 ft. 7 in. (170.18 cm); dem1 09:42 BP 115 / 57 (auto/); jo3 09:42 Pulse 82 MON; Pulse Ox 83% ; jo3 09:57 BP 127 / 60 (auto/); jo3 09:57 Pulse 86 MON; Pulse Ox 91% ; jo3 10:12 BP 120 / 55 (auto/); jo3 10:12 Pulse 86 MON; Pulse Ox 93% ; jo3 10:27 BP 121 / 58 (auto/); jo3 10:27 Pulse 84 MON; Pulse Ox 95% ; jo3 10:42 BP 125 / 63 (auto/); jo3 10:42 Pulse 86 MON; Pulse Ox 92% ; jo3 10:56 Pulse 86 MON; Pulse Ox 93% ; jo3 10:57 BP 114 / 55 (auto/); jo3 11:12 BP 122 / 62 (auto/); jo3 11:12 Pulse 82 MON; Pulse Ox 89% ; jo3 11:27 BP 116 / 63 (auto/); jo3 11:27 Pulse 78 MON; Pulse Ox 90% ; jo3 11:42 BP 110 / 59 (auto/); jo3 11:42 Pulse 76 MON; Pulse Ox 90% ; jo3 11:57 BP 113 / 62 (auto/); jo3 11:57 Pulse 74 MON; Pulse Ox 90% ; jo3 12:12 BP 115 / 63 (auto/); jo3 12:12 Pulse 72 MON; Pulse Ox 92% ; jo3 12:26 Pulse 74 MON; Pulse Ox 92% ; jo3 12:27 BP 124 / 66 (auto/); jo3 12:42 BP 119 / 68 (auto/); jo3 12:42 Pulse 76 MON; Pulse Ox 93% ; jo3 12:57 BP 128 / 68 (auto/); jo3 12:57 Pulse 72 MON; Pulse Ox 94% ; jo3 13:12 BP 126 / 70 (auto/); jo3 13:12 Pulse 72 MON; Pulse Ox 94% ; jo3 13:27 BP 120 / 65 (auto/); jo3 13:27 Pulse 72 MON; Pulse Ox 93% ; jo3 13:42 BP 124 / 65 (auto/); jo3 13:42 Pulse 74 MON; Pulse Ox 96% ; jo3 14:12 BP 124 / 62 (auto/); jo3 14:12 Pulse 76 MON; jo3 14:27 BP 126 / 68 (auto/); jo3 14:27 Pulse 72 MON; Pulse Ox 95% ; jo3 14:42 BP 115 / 60 (auto/); jo3 14:42 Pulse 74 MON; Pulse Ox 95% ; jo3 14:57 BP 118 / 63 (auto/); jo3 14:57 Pulse 76 MON; Pulse Ox 94% ; jo3 15:27 BP 132 / 70 (auto/); jo3 15:27 Pulse 80 MON; Pulse Ox 93% ; jo3 15:42 BP 136 / 67 (auto/); jo3 15:42 Pulse 84 MON; Pulse Ox 96% ; jo3 15:57 BP 135 / 71 (auto/); jo3 15:57 Pulse 78 MON; Pulse Ox 94% ; jo3 16:12 BP 134 / 76 (auto/); jo3 16:12 Pulse 82 MON; Pulse Ox 94% ; jo3 16:27 BP 137 / 72 (auto/); jo3 16:27 Pulse 78 MON; Pulse Ox 92% ; jo3 16:42 BP 138 / 78 (auto/); jo3 16:42 Pulse 88 MON; jo3 16:57 BP 131 / 59 (auto/); jo3 16:57 Pulse 84 MON; Pulse Ox 96% ; jo3 17:12 BP 132 / 67 (auto/); jo3 17:12 Pulse 82 MON; Pulse Ox 96% ; jo3 17:27 BP 129 / 61 (auto/); jo3 17:27 Pulse 80 MON; Pulse Ox 97% ; jo3 17:42 BP 117 / 56 (auto/); jo3 17:42 Pulse 80 MON; Pulse Ox 96% ; jo3 17:57 BP 137 / 65 (auto/); jo3 17:57 Pulse 80 MON; Pulse Ox 96% ; jo3 18:12 BP 141 / 69 (auto/); jo3 18:12 Pulse 80 MON; Pulse Ox 96% ; jo3 18:27 BP 140 / 68 (auto/); jo3 18:27 Pulse 82 MON; Pulse Ox 94% ; jo3 18:42 BP 137 / 68 (auto/); jo3 18:42 Pulse 82 MON; Pulse Ox 97% ; jo3 09:28 Body Mass Index 30.39 (88.00 kg, 170.18 cm) dem1 MDM: 09:26 IV Saline Lock ordered. ml 09:26 [employer]/Pulse Ox/q 15 min VS ordered. ml 09:26 Rhythm Strip to chart ordered. ml 09:26 Albuterol 5 mg Nebulizer once ordered. ml 09:26 Albuterol-Ipratropium 3 ml Inhalation once ordered. ml 09:26 Call Respiratory ordered. ml 09:26 -Blood Culture (Adults Only), peripheral from different site, or from device/port/PICC ml etc. if present ordered. 09:26 Call Respiratory ordered. ml 09:27 ECG WITH READING ER PHYS+CARDIAG ordered. EDMS 09:27 CBC with Diff Ordered. EDMS 09:27 MED Profile Ordered. EDMS 09:27 BNP Ordered. EDMS 09:27 CIP Ordered. EDMS 09:27 Troponin Ordered. EDMS 09:27 -Arterial Blood Gas Ordered. EDMS 09:27 Liver Profile Ordered. EDMS 09:27 -Blood Culture Ordered. EDMS 09:27 -Influenza A&B Rapid Antigen - Nose Ordered. EDMS 09:33 Chest, 1 View Ordered. EDMS 09:34 Call Respiratory complete. ar3 09:34 Call Respiratory complete. ar3 09:36 -Blood Culture (Adults Only), peripheral from different site, or from device/port/PICC ar3 etc. if present complete. 09:38 BLOOD CULTURES Ordered. EDMS 10:21 Financial registration complete. lg 10:22 CBC with Diff Reviewed. ml 10:22 BNP Reviewed. ml 10:22 -Arterial Blood Gas Reviewed. ml 10:22 -Influenza A&B Rapid Antigen - Nose Reviewed. ml 10:25 MED Profile Reviewed. ml 10:25 CIP Reviewed. ml 10:25 Troponin Reviewed. ml 10:25 Liver Profile Reviewed. ml 10:27 Aspirin Chewable Tablet 324 mg PO once ordered. ml 10:28 Furosemide 20 mg IVP once ordered. ml 10:28 Moxifloxacin 400 mg IV at 400 mg/hr once over 60 mins ordered. ml 10:45 Type & Screen Ordered. EDMS 10:46 PT/INR Ordered. EDMS 10:46 PTT Ordered. EDMS 10:57 BED REQUEST+ADM ordered. EDMS 10:59 [facility] [place] was scanned into [employer] and attached to record. lg 13:22 Admission / Observation Status ordered. EDMS 13:22 ECHOCARD,DOPPLER/COLOR FLOW ordered. EDMS 13:22 CONSISTENT CARBOHYDRATES ordered. EDMS 13:23 CARDIAC INJURY PROFILE Ordered. EDMS 13:23 CARDIAC INJURY PROFILE Ordered. EDMS 13:23 TROPONIN Ordered. EDMS 13:23 TROPONIN Ordered. EDMS 16:16 Atenolol 50 mg PO once ordered. jo3 16:16 Finasteride (Proscar) 5 mg PO once ordered. jo3 16:16 Nicotine Patch 14 mg/24 hr 14 mg Transdermal once ordered. jo3 16:16 Losartan 50 mg PO once ordered. jo3 17:37 Pantoprazole 40 mg PO once ordered. jo3 17:37 Solu-MEDROL 60 mg IVP once ordered. jo3 19:05 Acetaminophen Tablet 1000 mg PO once ordered. jo3 19:31 CBC WITH DIFFERENTIAL Ordered. EDMS 19:31 CARDIAC INJURY PROFILE Ordered. EDMS 19:32 TROPONIN Ordered. EDMS 20:47 Fingerstick Blood Sugar Ordered. EDMS 01/ 03:05 COMPLETE COMPHRENSIVE METABOLI Ordered. EDMS 03:05 MAGNESIUM LEVEL Ordered. EDMS 04:40 ELECTROCARDIOGRAM ADULT ordered. EDMS 07:42 Fingerstick Blood Sugar Ordered. EDMS 10:59 COMPLETE BLOOD COUNT Ordered. EDMS 11:00 PACKED CELLS Ordered. EDMS 12:15 Fingerstick Blood Sugar Ordered. EDMS 13:00 T-Sheet-- Draft Copy was scanned into [employer] and attached to record. gb 14:04 BLOOD CULTURES Ordered. EDMS 15:01 Fingerstick Blood Sugar Ordered. EDMS 15:52 Atropine 1 mg IVP once ordered. br1 15:52 ED course: Called to respond to patient's bradycardia and decreased responsive. Patient br1 DNR/DNI. Heart rate 48. Atropine 1 mg IV given with good effect, patient now responsive. Dr. Franks has arrived to assume care of rapid response and patient is being taken to ICU.. 15:53 Fingerstick Blood Sugar Ordered. EDMS 07/16 13:54 ECG/EKG was scanned into [employer] and attached to record. gb 13:54 Consents was scanned into [employer] and attached to record. gb 13:55 Radiology Report was scanned into [employer] and attached to record. gb 13:55 Other: LIVING WILL was scanned into [employer] and attached to record. gb 13:55 Other: MOLST was scanned into [employer] and attached to record. gb Point of Care Testing: Blood Glucose: 07/15 15:46 Blood Glucose: 412 mg/dL; kc3 Ranges: Administered Medications: 07/14 09:20 Drug: Albuterol 5 mg [albuterol sulfate 2.5 mg/0.5 mL solution for nebulization (1 mL)] kt1 Route: Nebulizer; 09:43 Drug: Albuterol-Ipratropium 3 ml [ipratropium-albuterol 0.5 mg-3 mg(2.5 mg base)/3 mL kt1 nebulization soln (3 mL)] Route: Inhalation; 10:32 Drug: Aspirin 324 mg [aspirin 81 mg chewable tablet (4 tabs)] Route: PO; jo3 10:34 Drug: Furosemide 20 mg [furosemide 10 mg/mL injection solution (2 mL)] Route: IVP; jo3 Site: left hand; 10:38 Drug: Moxifloxacin 400 mg [moxifloxacin 400 mg/250 mL-sodium chloride(iso) intravenous jo3 piggyback] Route: IV; Rate: 400 mg/hr; Infused Over: 60 mins; Site: left hand; 11:46 Follow up: IV Status: Completed infusion jo3 16:20 Drug: Atenolol 50 mg [atenolol 25 mg tablet (2 tabs)] Route: PO; jo3 16:20 Drug: Finasteride (Proscar) 5 mg Route: PO; jo3 16:20 Drug: Nicotine Patch 14 mg/24 hr 14 mg Route: Transdermal; Site: right upper arm; jo3 16:20 Drug: Losartan 50 mg [losartan 25 mg tablet (2 tabs)] Route: PO; jo3 16:55 Drug: Pantoprazole 40 mg [pantoprazole 40 mg tablet,delayed release (1 tabs)] Route: PO;jo3 16:55 Drug: Solu-MEDROL 60 mg [Solu-Medrol 500 mg intravenous solution (60 mg)] Route: IVP; 3 Site: right antecubital; 18:55 Drug: Acetaminophen 1000 mg [acetaminophen 500 mg tablet (2 tabs)] Route: PO; 3 07/15 13:45 Drug: Atropine 1 mg [atropine 0.4 mg/mL injection solution (2.5 mL)] Route: IVP; Site: hs1 right forearm; Critical Care Time: 07/14 12:32 Critical care time: Bedside Care: 100 minutes, Consultation: 20 minutes, Family ml Intervention: 10 minutes. Total time: 130 minutes Signatures: Dispatcher [employer] EDIrene Jaime MD MD ml Cinthya Driver, [employer] Unit deg Barnhardt, Allie, Reg Reg gb Ganter, CatarinaiLee, Reg Reg lg Braxton Wayne, [employer] ml3 Mary Benton,RN RN jo3 Alphonso Keane MD MD br1 Irena Stevens, VISCOSITY TESTER VISCOSITY TESTER ar3 Dank, Jessica Oh, RN RN sls2 Libia Dalton kt1 Zenobia Esposito RN hs1 The chart was reviewed and I authenticate all verbal orders and agree with the evaluation and treatment provided.Corrections: (The following items were deleted from the chart) 13:36 13:23 BLOOD CULTURES ordered. EDMS EDMS 07/15 03:04 07/14 19:31 COMPLETE COMPHRENSIVE METABOLI ordered. EDMS EDMS 07/15 03:04 00:03 MAGNESIUM LEVEL ordered. EDMS EDMS 11:00 TYPE & SCREEN ordered. EDMS EDMS Attachments: 07/14 10:59 [facility] [place] Agreement lg 07/15 13:00 T-Sheet-- Draft Copy 07/16 13:54 ECG/EKG Chart Complete MTDD
--- NOTE | 2016-07-17 17:38 | EDDOCDS ---
Nurse's Notes [facility] Name: Tamia Augustin Age: 75 yrs Sex: Male : 1940 Arrival Date: 07/14/2016 Time: 09:03 Bed Admit Hold Private MD: Diagnosis: Chronic obstructive pulmonary disease with (acute) exacerbation;Pneumonia, unspecified organism;Acute systolic (congestive) heart failure;Anemia, unspecified;Hypo-osmolality and hyponatremia;Non-ST elevation (NSTEMI) myocardial infarction Presentation: 07/14 09:07 Presenting complaint: EMS states: Pt is on home O2. Uses a concentrator at home and jo3 concentrator stopped working overnight. High 70s O2 sat on EMS arrival. SL 20g in left hand. Duo neb and 125mg Solu-Medrol given en route. O2 sat 94% at this time. Home O2 dose 2L. Suicide/Homicide risk assessment- the patient denies having any suicidal and/or homicidal ideations and does not present with any other emotional, behavioral or mental health complaints. 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 Transition of care: patient was not received from another setting of care. 09:07 Acuity: GLEN Level 3 jo3 09:07 Method Of Arrival: Ambulance jo3 09:20 Adult Sepsis Screening: The patient does not have new or worsening altered mentation. jo3 Patient's respiratory rate is less than 22. Systolic blood pressure is greater than 100. Patient has a qSOFA score of 0- Negative Sepsis Screen. Triage Assessment: 09:46 General: Appears in no apparent distress, Behavior is appropriate for age, cooperative, jo3 drowsy. Pain: Denies pain. Neurological: Level of Consciousness is awake, alert, Oriented to person, place, time. Cardiovascular: No deficits noted. Rhythm is sinus rhythm with unifocal PVCs. Respiratory: Onset: The symptoms/episode began/occurred gradually, Airway is patent Respiratory effort is even, unlabored, Breath sounds are coarse expiratory bilaterally. Breath sounds with crackles bilaterally. in left posterior lower lobe, right posterior middle lobe and right posterior lower lobe Reports shortness of breath cough that is productive. Derm: Skin is intact, Skin is dry, Skin is pale, Skin temperature is warm. Historical: - Allergies: PENICILLINS (Hives); - Home Meds: 1. losartan-hydrochlorothiazide 100-25 mg oral tab 0.5 tab once daily 2. aspirin 81 mg Oral tab 2 tabs once daily (Last dose: 07/13/2016) 3. atenolol 50 mg Oral tab 1 tab once daily (Last dose: 07/13/2016) 4. atorvastatin 20 mg oral tab 1 tab once daily (Last dose: 07/13/2016) 5. ranitidine HCl 150 mg Oral tab 1 tab once daily (Last dose: 07/13/2016) 6. Vitamin D2 1,000 unit oral cap (Last dose: 07/13/2016) 7. metformin 500 mg Oral tab 0.5 tab 2 times per day (Last dose: 07/13/2016) 8. finasteride 5 mg oral tab 1 tab once daily 9. Advair Diskus 250-50 mcg/dose Inhl dsdv 1 puff 2 times per day (Last dose: 07/13/2016) - PMHx: CAD; Diabetes - IDDM: controlled; Emphysema; GERD; Hypercholesterolemia; Hypertension; Nicotine Abuse; Polydispsia; Stroke; - PSHx: Appendectomy; - Social history: Smoking status: No barriers to communication noted, The patient speaks fluent Polish, Speaks appropriately for age, Smoking status: Patient uses tobacco products, heavy tobacco smoker. - Family history: Not pertinent. - : The pt / caregiver states he / she is not on anticoagulants. Home medication list is obtained from family members. - Exposure Risk Screening:: None identified. Screenin:48 Screening information is obtained from the patient. Fall risk: No risks identified. jo3 Assistance ADL's: requires no assistance with activities of daily living. Abuse/DV Screen: The patient / caregiver reports he/she is: not in a situation that causes fear, pain or injury. Nutritional screening: No deficits noted. Advance Directives: There is no active DNR order. home support is adequate. Assessment: 09:48 Reassessment: See triage assessment . jo3 10:59 General: Appears in no apparent distress, comfortable, Behavior is cooperative, drowsy. jo3 Neurological: No deficits noted. Cardiovascular: Rhythm is sinus rhythm with unifocal PVCs Chest pain is denied Pt now reports that he had chest pain x 2 nights. Denies at this time . Respiratory: Airway is patent Respiratory effort is even, unlabored. Derm: Skin is intact, Skin is dry, Skin is pale, Skin temperature is warm. 11:48 Reassessment: Patient appears in no apparent distress at this time. No acute changes jo3 noted at this time. Awaiting admitting physician at this time. Aware of plan of care . 12:45 General: Appears in no apparent distress, comfortable, Behavior is appropriate for age, jo3 cooperative, drowsy. Neurological: Level of Consciousness is awake, alert, Oriented to person, place, time. Cardiovascular: Rhythm is sinus rhythm with unifocal PVCs. Derm: Skin is intact, Skin is dry, Skin is pale, Skin temperature is warm. 13:35 Reassessment: Patient appears in no apparent distress at this time. Patient denies pain jo3 at this time. Patient states feeling better. Patient states symptoms have improved. Multiple family at bedside. Awaiting available bed for admissions. Aware of plan of care . 14:22 Reassessment: Patient appears in no apparent distress at this time. Patient denies pain jo3 at this time. Family remains at bedside. Continues to await available bed on PCU. Aware of plan of care . 15:40 General: Appears in no apparent distress, comfortable, Behavior is appropriate for age, jo3 cooperative, pleasant. General: Awaiting available bed for admission. Aware of plan of care . Neurological: Level of Consciousness is awake, alert, Oriented to person, place, time. Cardiovascular: Rhythm is sinus rhythm with unifocal PVCs. Derm: Skin is intact, Skin is dry, Skin is pale. 16:55 Reassessment: Patient appears in no apparent distress at this time. Appears asleep on jo3 stretcher at this time. Awaiting available bed for admission. Aware of plan of care. Family at bedside . 17:56 Reassessment: Patient appears in no apparent distress at this time. Has some c/o mild jo3 discomfort due to being on stretcher. Looking for available bed to put pt into. Awaiting Tylenol from pharmacy to administer as per written order . 18:51 General: Appears in no apparent distress, Behavior is appropriate for age, cooperative. jo3 Neurological: No deficits noted. Level of Consciousness is awake, alert, Oriented to person, place, time. Cardiovascular: Rhythm is sinus rhythm with unifocal PVCs Chest pain is denied. Respiratory: Airway is patent Respiratory effort is even, unlabored. Derm: Skin is intact, Skin is dry. Vital Signs: 09:12 BP 134 / 86 (auto/); jo3 09:13 Pulse 80 MON; Pulse Ox 93% ; jo3 09:14 BP 134 / 86; Pulse 80; Resp 20; Temp 98.5(TE); Pulse Ox 91% 8% ; Pain 0/10; nb2 09:27 BP 128 / 60 (auto/); jo3 09:27 Pulse 80 MON; Pulse Ox 94% ; jo3 09:28 Weight 88 kg; Height 5 ft. 7 in. (170.18 cm); dem1 09:42 BP 115 / 57 (auto/); jo3 09:42 Pulse 82 MON; Pulse Ox 83% ; jo3 09:57 BP 127 / 60 (auto/); jo3 09:57 Pulse 86 MON; Pulse Ox 91% ; jo3 10:12 BP 120 / 55 (auto/); jo3 10:12 Pulse 86 MON; Pulse Ox 93% ; jo3 10:27 BP 121 / 58 (auto/); jo3 10:27 Pulse 84 MON; Pulse Ox 95% ; jo3 10:42 BP 125 / 63 (auto/); jo3 10:42 Pulse 86 MON; Pulse Ox 92% ; jo3 10:56 Pulse 86 MON; Pulse Ox 93% ; jo3 10:57 BP 114 / 55 (auto/); jo3 11:12 BP 122 / 62 (auto/); jo3 11:12 Pulse 82 MON; Pulse Ox 89% ; jo3 11:27 BP 116 / 63 (auto/); jo3 11:27 Pulse 78 MON; Pulse Ox 90% ; jo3 11:42 BP 110 / 59 (auto/); jo3 11:42 Pulse 76 MON; Pulse Ox 90% ; jo3 11:57 BP 113 / 62 (auto/); jo3 11:57 Pulse 74 MON; Pulse Ox 90% ; jo3 12:12 BP 115 / 63 (auto/); jo3 12:12 Pulse 72 MON; Pulse Ox 92% ; jo3 12:26 Pulse 74 MON; Pulse Ox 92% ; jo3 12:27 BP 124 / 66 (auto/); jo3 12:42 BP 119 / 68 (auto/); jo3 12:42 Pulse 76 MON; Pulse Ox 93% ; jo3 12:57 BP 128 / 68 (auto/); jo3 12:57 Pulse 72 MON; Pulse Ox 94% ; jo3 13:12 BP 126 / 70 (auto/); jo3 13:12 Pulse 72 MON; Pulse Ox 94% ; jo3 13:27 BP 120 / 65 (auto/); jo3 13:27 Pulse 72 MON; Pulse Ox 93% ; jo3 13:42 BP 124 / 65 (auto/); jo3 13:42 Pulse 74 MON; Pulse Ox 96% ; jo3 14:12 BP 124 / 62 (auto/); jo3 14:12 Pulse 76 MON; jo3 14:27 BP 126 / 68 (auto/); jo3 14:27 Pulse 72 MON; Pulse Ox 95% ; jo3 14:42 BP 115 / 60 (auto/); jo3 14:42 Pulse 74 MON; Pulse Ox 95% ; jo3 14:57 BP 118 / 63 (auto/); jo3 14:57 Pulse 76 MON; Pulse Ox 94% ; jo3 15:27 BP 132 / 70 (auto/); jo3 15:27 Pulse 80 MON; Pulse Ox 93% ; jo3 15:42 BP 136 / 67 (auto/); jo3 15:42 Pulse 84 MON; Pulse Ox 96% ; jo3 15:57 BP 135 / 71 (auto/); jo3 15:57 Pulse 78 MON; Pulse Ox 94% ; jo3 16:12 BP 134 / 76 (auto/); jo3 16:12 Pulse 82 MON; Pulse Ox 94% ; jo3 16:27 BP 137 / 72 (auto/); jo3 16:27 Pulse 78 MON; Pulse Ox 92% ; jo3 16:42 BP 138 / 78 (auto/); jo3 16:42 Pulse 88 MON; jo3 16:57 BP 131 / 59 (auto/); jo3 16:57 Pulse 84 MON; Pulse Ox 96% ; jo3 17:12 BP 132 / 67 (auto/); jo3 17:12 Pulse 82 MON; Pulse Ox 96% ; jo3 17:27 BP 129 / 61 (auto/); jo3 17:27 Pulse 80 MON; Pulse Ox 97% ; jo3 17:42 BP 117 / 56 (auto/); jo3 17:42 Pulse 80 MON; Pulse Ox 96% ; jo3 17:57 BP 137 / 65 (auto/); jo3 17:57 Pulse 80 MON; Pulse Ox 96% ; jo3 18:12 BP 141 / 69 (auto/); jo3 18:12 Pulse 80 MON; Pulse Ox 96% ; jo3 18:27 BP 140 / 68 (auto/); jo3 18:27 Pulse 82 MON; Pulse Ox 94% ; jo3 18:42 BP 137 / 68 (auto/); jo3 18:42 Pulse 82 MON; Pulse Ox 97% ; jo3 09:28 Body Mass Index 30.39 (88.00 kg, 170.18 cm) dem1 Vitals: 09:14 Log In Time N/A - ambulance arrival. nb2 ED Course: 09:04 Patient visited by Irena Stevens PCA. ar3 09:04 Patient moved to Waiting ar3 09:05 Sujey Lindsey,RN is Primary Nurse. ar3 09:05 Keisha Mcarthur,RN is Primary Nurse. ar3 09:05 Patient moved to 8 ar3 09:11 Triage Initiated jo3 09:14 Placed in gown. Bed in low position. Call light in reach. Side rails up X2. Cardiac nb2 monitor on. Pulse ox on. NIBP on. 09:15 Patient visited by Calli Garcia. nb2 09:16 Patient visited by Mary Benton,MIRANDA. jo3 09:21 Irene Hebert MD is Attending Physician. ml 09:21 Patient visited by Irene Hebert MD. ml 09:31 EKG done. (by ED staff). Reviewed by Irene Hebert MD. nb2 09:35 Patient visited by Calli Garcia. nb2 09:36 Patient visited by Calli Garcia. nb2 09:45 BLOOD CULTURES Sent. jo3 09:45 Liver Profile Sent. jo3 09:45 -Influenza A&B Rapid Antigen - Nose Sent. jo3 09:45 -Blood Culture Sent. jo3 09:45 Troponin Sent. jo3 09:45 CIP Sent. jo3 09:46 BNP Sent. jo3 09:46 MED Profile Sent. jo3 09:46 CBC with Diff Sent. jo3 09:48 The patient / caregiver is instructed regarding the plan of care and ED course. jo3 09:48 Maintain field IV. Dressing intact. Good blood return noted. Site clean & dry. Gauge & jo3 site: 20g in left hand. Labs drawn. (by ED staff). Sent per order to lab. Labs/Blood culture drawn. 09:50 Patient visited by Mary Benton RN. jo3 10:15 Notified attending ED physician of Critical lab value. Troponin 2.87. jo3 10:15 Inserted saline lock: 18 gauge in left antecubital area. No procedures done that jo3 require assistance. Labs drawn. Sent per order to lab. 10:40 Chest, 1 View Returned. EDMS 10:56 Patient name changed from Tamia\S\\S\Alberry\S\ to Tamia\S\G\S\Alberry. EDMS 10:59 [facility] Payment Agreement was scanned into [employer] and attached to record. lg 11:03 Patient visited by Mary Benton RN. jo3 11:50 Patient visited by Mary Benton RN. jo3 11:50 Primary Nurse role handed off by Sujey Lindsey RN ct3 11:53 Patient visited by Mary Benton RN. jo3 12:30 Bharat Muse MD is Hospitalizing Provider. ml 13:27 Patient moved to Admit Hold kpj 14:24 Patient visited by Mary Benton RN. jo3 14:48 Notified private physician of abnormal lab values. Dr Amberly Muse notified of troponin level [facility] of 4.09, no new orders.. 17:41 Patient visited by Mary Benton RN. jo3 17:59 Patient visited by Mary Benton RN. jo3 18:03 Patient visited by Mary Benton RN. jo3 18:54 Patient visited by Mary Benton RN. jo3 18:56 Sujey Lindsey RN is Primary Nurse. ko2 19:03 Patient visited by Lucien Haines PCA. kb5 19:06 Patient visited by Mary Benton RN. jo3 19:25 Patient moved to 20 ml3 19:48 EKG-ADULT Returned. EDMS 21:34 Patient moved to Admit Hold ml3 22:32 Patient visited by Lucien Haines PCA. kb5 07/15 00:42 Primary Nurse role handed off by Keisha Mcarthur RN kb5 07:22 Primary Nurse role handed off by Sujey Lindsey RN deg 13:00 T-Sheet-- Draft Copy was scanned into [employer] and attached to record. gb 15:56 Inserted peripheral IV: 18gauge IV in left antecubital area Patient tolerated the aa3 procedure well. 07/16 13:54 ECG/EKG was scanned into [employer] and attached to record. gb 13:54 Consents was scanned into [employer] and attached to record. gb 13:55 Radiology Report was scanned into [employer] and attached to record. gb 13:55 Other: LIVING WILL was scanned into [employer] and attached to record. gb 13:55 Other: MOLST was scanned into [employer] and attached to record. gb Administered Medications: 07/14 09:20 Drug: Albuterol 5 mg [albuterol sulfate 2.5 mg/0.5 mL solution for nebulization (1 mL)] kt1 Route: Nebulizer; 09:43 Drug: Albuterol-Ipratropium 3 ml [ipratropium-albuterol 0.5 mg-3 mg(2.5 mg base)/3 mL kt1 nebulization soln (3 mL)] Route: Inhalation; 10:32 Drug: Aspirin 324 mg [aspirin 81 mg chewable tablet (4 tabs)] Route: PO; jo3 10:34 Drug: Furosemide 20 mg [furosemide 10 mg/mL injection solution (2 mL)] Route: IVP; jo3 Site: left hand; 10:38 Drug: Moxifloxacin 400 mg [moxifloxacin 400 mg/250 mL-sodium chloride(iso) intravenous jo3 piggyback] Route: IV; Rate: 400 mg/hr; Infused Over: 60 mins; Site: left hand; 11:46 Follow up: IV Status: Completed infusion jo3 16:20 Drug: Atenolol 50 mg [atenolol 25 mg tablet (2 tabs)] Route: PO; jo3 16:20 Drug: Finasteride (Proscar) 5 mg Route: PO; jo3 16:20 Drug: Nicotine Patch 14 mg/24 hr 14 mg Route: Transdermal; Site: right upper arm; jo3 16:20 Drug: Losartan 50 mg [losartan 25 mg tablet (2 tabs)] Route: PO; jo3 16:55 Drug: Pantoprazole 40 mg [pantoprazole 40 mg tablet,delayed release (1 tabs)] Route: PO;jo3 16:55 Drug: Solu-MEDROL 60 mg [Solu-Medrol 500 mg intravenous solution (60 mg)] Route: IVP; jo3 Site: right antecubital; 18:55 Drug: Acetaminophen 1000 mg [acetaminophen 500 mg tablet (2 tabs)] Route: PO; jo3 07/15 13:45 Drug: Atropine 1 mg [atropine 0.4 mg/mL injection solution (2.5 mL)] Route: IVP; Site: hs1 right forearm; Attachments: 13:54 Consents gb Point of Care Testing: Blood Glucose: 07/15 15:46 Blood Glucose: 412 mg/dL; kc3 Ranges: RT: 07/14 09:43 Initial Med Neb Given as ordered Patient was instructed and evaluated on procedure. kt1 Order Results: Lab Order: CBC with Diff; SPEC'M 07/14/16 09:34 Test: WHITE BLOOD COUNT; Value: 8.0; Range: 4.0-10.0; Units: K/mm3; Status: F Test: RED BLOOD COUNT; Value: 2.65; Range: 4.30-6.10; Abnormal: Below low normal; Units: M/mm3; Status: F Test: HEMOGLOBIN; Value: 8.4; Range: 14.0-18.0; Abnormal: Below low normal; Units: g/dl; Status: F Test: HEMATOCRIT; Value: 23.5; Range: 42.0-52.0; Abnormal: Below low normal; Units: %; Status: F Test: MEAN CORPUSCULAR VOLUME; Value: 88.7; Range: 80.0-96.0; Units: fl; Status: F Test: MEAN CORPUSCULAR HEMOGLOBIN; Value: 31.6; Range: 27.0-33.0; Units: pg; Status: F Test: MEAN CORPUSCULAR HGB CONC; Value: 35.7; Range: 32.0-36.5; Units: g/dl; Status: F Test: RED CELL DISTRIBUTION WIDTH; Value: 14.5; Range: 11.5-14.5; Units: %; Status: F Test: PLATELET COUNT, AUTOMATED; Value: 323; Range: 150-450; Units: k/mm3; Status: F Test: NEUTROPHILS %; Value: 82.8; Range: 36.0-66.0; Abnormal: Above high normal; Units: %; Status: F Test: LYMPH %; Value: 10.3; Range: 24.0-44.0; Abnormal: Below low normal; Units: %; Status: F Test: MONO %; Value: 4.0; Range: 0.0-5.0; Units: %; Status: F Test: EOS %; Value: 0.3; Range: 0.0-3.0; Units: %; Status: F Test: BASO %; Value: 0.6; Range: 0.0-1.0; Units: %; Status: F Test: LARGE UNSTAINED CELL %; Value: 2.1; Range: 0.0-4.0; Units: %; Status: F Test: NEUTROPHILS #; Value: 6.6; Range: 1.8-7.7; Units: K/mm3; Status: F Test: LYMPH #; Value: 0.8; Range: 1.5-4.5; Abnormal: Below low normal; Units: K/mm3; Status: F Test: MONO #; Value: 0.3; Range: 0.0-0.8; Units: K/mm3; Status: F Test: EOS #; Value: 0.0; Range: 0.0-0.50; Units: K/mm3; Status: F Test: BASO #; Value: 0.0; Range: 0.0-0.2; Units: K/mm3; Status: F Test: LARGE UNSTAINED CELL #; Value: 0.2; Range: 0.0-0.4; Units: K/mm3; Status: F Lab Order: MED Profile; SPEC'M 07/14/16 09:34 Test: GLUCOSE, FASTING; Value: 166; Range: 83-110; Abnormal: Above high normal; Units: MG/DL; Status: F Test: BLOOD UREA NITROGEN; Value: 32; Range: 7-18; Abnormal: Above high normal; Units: MG/DL; Status: F Test: CREATININE FOR GFR; Value: 1.35; Range: 0.70-1.30; Abnormal: Above high normal; Units: MG/DL; Status: F Test: GLOMERULAR FILTRATION RATE; Value: 54.8; Range: >42; Status: F Test: SODIUM LEVEL; Value: 123; Range: 136-145; Abnormal: Below low normal; Units: MEQ/L; Status: F Test: POTASSIUM SERUM; Value: 4.6; Range: 3.5-5.1; Units: MEQ/L; Status: F Test: CHLORIDE LEVEL; Value: 89; Range: 98-107; Abnormal: Below low normal; Units: MEQ/L; Status: F Test: CARBON DIOXIDE LEVEL; Value: 24; Range: 21-32; Units: MEQ/L; Status: F Test: ANION GAP; Value: 10; Range: 8-16; Units: MEQ/L; Status: F Test: CALCIUM LEVEL; Value: 8.5; Range: 8.8-10.2; Abnormal: Below low normal; Units: MG/DL; Status: F Test Note: ; Units are mL/min/1.73 m2 Chronic Kidney Disease Staging per NKF: Stage I & II GFR >=60 Normal to Mildly Decreased Stage III GFR 30-59 Moderately Decreased Stage IV GFR 15-29 Severely Decreased Stage V GFR <15 Very Little GFR Left ESRD GFR <15 on DISH MAKER Lab Order: BNP; SPEC07/14/16 09:34 Test: BRAIN NATRIURETIC PEPTIDE; Value: 576; Range: <100; Abnormal: Above high normal; Units: PG/ML; Status: F Lab Order: CIP; SPEC'07/14/16 09:34 Test: CPK CREATINE PHOSPHOKINASE; Value: 228; Range: 39-308; Units: U/L; Status: F Test: CK-MB VALUE MASS; Value: 8.0; Range: 0.0-3.6; Abnormal: Above high normal; Units: NG/ML; Status: F Test: MB/CK RELATIVE INDEX; Value: 3.50; Range: < OR =4; Status: F Test Note: ; DIAGNOSIS CRITERIA MMB ng/ml Relative Index (RI) NON-AMI < or = 5 N/A [place] > 5 < or = 4 AMI > 5 > 4 Lab Order: Troponin; SPEC'07/14/16 09:34 Test: TROPONIN I; Value: 2.87; Range: < 0.10; Abnormal: Above upper panic limits; Units: NG/ML; Status: F Test Note: ; Troponin I Reference Interval for [employer] [place] LOCI: 99th Percentile= 0.00-0.045 ng/ml Risk Stratification: <= 0.10 ng/ml Decreased Risk for Adverse Clinical Events. 0.10-1.50 ng/ml Increased Risk for Adverse Clinical Events. Evaluation of additional criterion and/or repeat testing in 2-6 hours is suggested to rule out myocardial damage. >= 1.50 ng/ml Indicative of Myocardial Injury. Lab Order: -Blood Culture; SPEC'M 07/14/16 09:34 Test: BLOOD CULTURE; Value: DATE POSITIVE DETECTED 07/15/16; Status: F Test: BLOOD CULTURE; Value: EXTERNAL GS (REQUIRED!!!) GRAM POSITIVE RODS; Status: F Lab Order: -Arterial Blood Gas; SPEC'M 07/14/16 09:35 Test: ABG pH (ARTERIAL); Value: 7.419; Range: 7.350-7.450; Units: UNITS; Status: F Test: ABG PARTIAL PRESSURE CO2; Value: 34.8; Range: 35.0-45.0; Abnormal: Below low normal; Units: mmHg; Status: F Test: ABG PARTIAL PRESSURE O2; Value: 81.6; Range: 75.0-100.0; Units: mmHg; Status: F Test: ABG TOTAL CO2; Value: 23.1; Range: 23.0-31.0; Units: MEQ/L; Status: F Test: ABG HCO3; Value: 22.0; Range: 22.0-26.0; Units: MEQ/L; Status: F Test: ABG BASE EXCESS; Value: -2.1; Range: -2.0-2.0; Abnormal: Below low normal; Status: F Test: ABG STANDARD HCO3; Value: 22.7; Range: 22.0-26.0; Units: MEQ/L; Status: F Test: ABG O2 SATURATION; Value: 95.5; Range: 95.0-99.0; Units: %; Status: F Test: ABG DEVICE; Value: NASAL BETTY; Status: F Lab Order: -Influenza A&B Rapid Antigen - Nose; SPEC'M 07/14/16 09:34 Test: INFLUENZA A RAPID SCR by ICA; Value: INFLUENZA A RESULTS NEGATIVE; Status: F Test: INFLUENZA A RAPID SCR by ICA; Value: Comments:; Status: F Test: INFLUENZA B RAPID SCR by ICA; Value: INFLUENZA B RESULTS NEGATIVE; Status: F Test Note: ; The Influenza test is a direct rapid immunoassay for the qualitative detection of Influenza viral antigen. Cell culture (Viral Culture) testing should be considered to confirm NEGATIVE results and to assist in detecting other viruses that can provide similar clinical symptoms. Please contact the lab within 24 hours ([phone]) if confirmatory testing is desired. Lab Order: Liver Profile; SPEC'M 07/14/16 09:34 Test: AST/SGOT; Value: 26; Range: 15-37; Units: U/L; Status: F Test: ALT/SGPT; Value: 29; Range: 12-78; Units: U/L; Status: F Test: ALKALINE PHOSPHATASE; Value: 55; Range: 45-117; Units: U/L; Status: F Test: BILIRUBIN,TOTAL; Value: 0.8; Range: 0.2-1.0; Units: MG/DL; Status: F Test: BILIRUBIN,DIRECT; Value: 0.3; Range: 0.0-0.2; Abnormal: Above high normal; Units: MG/DL; Status: F Test: TOTAL PROTEIN; Value: 6.7; Range: 6.4-8.2; Units: GM/DL; Status: F Test: ALBUMIN; Value: 3.3; Range: 3.2-5.2; Units: GM/DL; Status: F Test: ALBUMIN/GLOBULIN RATIO; Value: 0.97; Range: 1.00-1.93; Abnormal: Below low normal; Status: F Lab Order: BLOOD CULTURES; SPEC'M 07/14/16 09:42 Test: BLOOD CULTURE; Value: No growth after 24 hours . All specimens observed; Status: F Test: BLOOD CULTURE; Value: for 7 days. Results final at that time.; Status: F Lab Order: PT/INR; SPEC'M 07/14/16 09:42 Test: PROTHROMBIN TIME; Value: 13.7; Range: 12.3-14.5; Units: SECONDS; Status: F Test: INR; Value: 1.04; Status: F Test Note: ; THERAPUTIC HUMAN INR VALUES INDICATIONS NORMAL RANGES PROPHYLAXIS/TREATMENT OF: VENOUS THROMBOSIS 2.0-3.0 PULMONARY EMBOLISM 2.0-3.0 PREVENTION OF SYSTEMIC EMBOLISM FROM: TISSUE HEART VALVES 2.0-3.0 ACUTE MYOCARDIAL INFARCTION 2.0-3.0 VALVULAR HEART DISEASE 2.0-3.0 ATRIAL FIBRILLATION 2.0-3.0 MECHANICAL VALVES(HIGH RISK) 2.5-3.5 RECURRENT MYOCARDIAL INFARCTION 2.5-3.5 Lab Order: PTT; [facility] 07/14/16 09:42 Test: PARTIAL THROMBOPLASTIN TIME; Value: 33.8; Range: 26.6-37.1; Units: SECONDS; Status: F Lab Order: Type & Screen; [facility]07/14/16 10:55 Test: BLOOD TYPE; Value: B POS; Status: F Test: AB SCREEN (INDIRECT BLACK)GEL; Value: NEGATIVE; Status: F Lab Order: CARDIAC INJURY PROFILE; [facility]07/14/16 13:58 Test: CPK CREATINE PHOSPHOKINASE; Value: 215; Range: 39-308; Units: U/L; Status: F Test: CK-MB VALUE MASS; Value: 8.1; Range: 0.0-3.6; Abnormal: Above high normal; Units: NG/ML; Status: F Test: MB/CK RELATIVE INDEX; Value: 3.76; Range: < OR =4; Status: F Test Note: ; DIAGNOSIS CRITERIA MMB ng/ml Relative Index (RI) NON-AMI < or = 5 N/A [place] > 5 < or = 4 AMI > 5 > 4 Lab Order: CARDIAC INJURY PROFILE; [facility] 07/14/16 20:44 Test: CPK CREATINE PHOSPHOKINASE; Value: 227; Range: 39-308; Units: U/L; Status: F Test: CK-MB VALUE MASS; Value: 8.6; Range: 0.0-3.6; Abnormal: Above high normal; Units: NG/ML; Status: F Test: MB/CK RELATIVE INDEX; Value: 3.78; Range: < OR =4; Status: F Test Note: ; DIAGNOSIS CRITERIA MMB ng/ml Relative Index (RI) NON-AMI < or = 5 N/A [place] > 5 < or = 4 AMI > 5 > 4 Lab Order: TROPONIN; [facility] 07/14/16 13:58 Test: TROPONIN I; Value: 4.09; Range: < 0.10; Abnormal: Critical Delta High; Units: NG/ML; Status: F Test Note: ; Troponin I Reference Interval for [place] [employer]: 99th Percentile= 0.00-0.045 ng/ml Risk Stratification: <= 0.10 ng/ml Decreased Risk for Adverse Clinical Events. 0.10-1.50 ng/ml Increased Risk for Adverse Clinical Events. Evaluation of additional criterion and/or repeat testing in 2-6 hours is suggested to rule out myocardial damage. >= 1.50 ng/ml Indicative of Myocardial Injury. Lab Order: TROPONIN; [facility] 07/14/16 20:44 Test: TROPONIN I; Value: 2.49; Range: < 0.10; Abnormal: Critical Delta High; Units: NG/ML; Status: F Test Note: ; Troponin I Reference Interval for [employer] [place] [employer]: 99th Percentile= 0.00-0.045 ng/ml Risk Stratification: <= 0.10 ng/ml Decreased Risk for Adverse Clinical Events. 0.10-1.50 ng/ml Increased Risk for Adverse Clinical Events. Evaluation of additional criterion and/or repeat testing in 2-6 hours is suggested to rule out myocardial damage. >= 1.50 ng/ml Indicative of Myocardial Injury. Lab Order: CBC WITH DIFFERENTIAL; [facility] 07/15/16 07:28 Test: WHITE BLOOD COUNT; Value: 5.1; Range: 4.0-10.0; Units: K/mm3; Status: F Test: RED BLOOD COUNT; Value: 2.38; Range: 4.30-6.10; Abnormal: Below low normal; Units: M/mm3; Status: F Test: HEMOGLOBIN; Value: 7.2; Range: 14.0-18.0; Abnormal: Below low normal; Units: g/dl; Status: F Test: HEMATOCRIT; Value: 20.9; Range: 42.0-52.0; Abnormal: Below low normal; Units: %; Status: F Test: MEAN CORPUSCULAR VOLUME; Value: 87.8; Range: 80.0-96.0; Units: fl; Status: F Test: MEAN CORPUSCULAR HEMOGLOBIN; Value: 30.3; Range: 27.0-33.0; Units: pg; Status: F Test: MEAN CORPUSCULAR HGB CONC; Value: 34.6; Range: 32.0-36.5; Units: g/dl; Status: F Test: RED CELL DISTRIBUTION WIDTH; Value: 15.5; Range: 11.5-14.5; Abnormal: Above high normal; Units: %; Status: F Test: PLATELET COUNT, AUTOMATED; Value: 290; Range: 150-450; Units: k/mm3; Status: F Test: NEUTROPHILS %; Value: 86.0; Range: 36.0-66.0; Abnormal: Above high normal; Units: %; Status: F Test: LYMPH %; Value: 8.8; Range: 24.0-44.0; Abnormal: Below low normal; Units: %; Status: F Test: MONO %; Value: 3.8; Range: 0.0-5.0; Units: %; Status: F Test: EOS %; Value: 0.3; Range: 0.0-3.0; Units: %; Status: F Test: BASO %; Value: 0.4; Range: 0.0-1.0; Units: %; Status: F Test: LARGE UNSTAINED CELL %; Value: 0.7; Range: 0.0-4.0; Units: %; Status: F Test: NEUTROPHILS #; Value: 4.4; Range: 1.8-7.7; Units: K/mm3; Status: F Test: LYMPH #; Value: 0.5; Range: 1.5-4.5; Abnormal: Below low normal; Units: K/mm3; Status: F Test: MONO #; Value: 0.2; Range: 0.0-0.8; Units: K/mm3; Status: F Test: EOS #; Value: 0.0; Range: 0.0-0.50; Units: K/mm3; Status: F Test: BASO #; Value: 0.0; Range: 0.0-0.2; Units: K/mm3; Status: F Test: LARGE UNSTAINED CELL #; Value: 0.0; Range: 0.0-0.4; Units: K/mm3; Status: F Lab Order: CARDIAC INJURY PROFILE; SPEC'M 07/15/16 07:28 Test: CPK CREATINE PHOSPHOKINASE; Value: 242; Range: 39-308; Units: U/L; Status: F Test: CK-MB VALUE MASS; Value: 10.6; Range: 0.0-3.6; Abnormal: Above high normal; Units: NG/ML; Status: F Test: MB/CK RELATIVE INDEX; Value: 4.38; Range: < OR =4; Abnormal: Above high normal; Status: F Test Note: ; DIAGNOSIS CRITERIA MMB ng/ml Relative Index (RI) NON-AMI < or = 5 N/A [place] > 5 < or = 4 AMI > 5 > 4 Lab Order: TROPONIN; 07/15/16 07:28 Test: TROPONIN I; Value: 2.23; Range: < 0.10; Abnormal: Above upper panic limits; Units: NG/ML; Status: F Test Note: ; Troponin I Reference Interval for Revstr LOCI: 99th Percentile= 0.00-0.045 ng/ml Risk Stratification: <= 0.10 ng/ml Decreased Risk for Adverse Clinical Events. 0.10-1.50 ng/ml Increased Risk for Adverse Clinical Events. Evaluation of additional criterion and/or repeat testing in 2-6 hours is suggested to rule out myocardial damage. >= 1.50 ng/ml Indicative of Myocardial Injury. Lab Order: Fingerstick Blood Sugar; [facility]07/14/16 20:39 Test: BEDSIDE GLUCOSE; Value: 416; Range: 83-110; Abnormal: Above high normal; Units: MG/DL; Status: F Lab Order: Fingerstick Blood Sugar; [facility]07/14/16 23:10 Test: BEDSIDE GLUCOSE; Value: 411; Range: 83-110; Abnormal: Above high normal; Units: MG/DL; Status: F Lab Order: COMPLETE COMPHRENSIVE METABOLI; 07/15/16 07:28 Test: GLUCOSE, FASTING; Value: 330; Range: 83-110; Abnormal: Above high normal; Units: MG/DL; Status: F Test: BLOOD UREA NITROGEN; Value: 43; Range: 7-18; Abnormal: Above high normal; Units: MG/DL; Status: F Test: CREATININE FOR GFR; Value: 1.54; Range: 0.70-1.30; Abnormal: Above high normal; Units: MG/DL; Status: F Test: GLOMERULAR FILTRATION RATE; Value: 47.1; Range: >42; Status: F Test: SODIUM LEVEL; Value: 122; Range: 136-145; Abnormal: Below low normal; Units: MEQ/L; Status: F Test: POTASSIUM SERUM; Value: 4.7; Range: 3.5-5.1; Units: MEQ/L; Status: F Test: CHLORIDE LEVEL; Value: 88; Range: 98-107; Abnormal: Below low normal; Units: MEQ/L; Status: F Test: CARBON DIOXIDE LEVEL; Value: 21; Range: 21-32; Units: MEQ/L; Status: F Test: ANION GAP; Value: 13; Range: 8-16; Units: MEQ/L; Status: F Test: CALCIUM LEVEL; Value: 8.2; Range: 8.8-10.2; Abnormal: Below low normal; Units: MG/DL; Status: F Test: AST/SGOT; Value: 22; Range: 15-37; Units: U/L; Status: F Test: ALT/SGPT; Value: 27; Range: 12-78; Units: U/L; Status: F Test: ALKALINE PHOSPHATASE; Value: 47; Range: 45-117; Units: U/L; Status: F Test: BILIRUBIN,TOTAL; Value: 0.6; Range: 0.2-1.0; Units: MG/DL; Status: F Test: TOTAL PROTEIN; Value: 6.3; Range: 6.4-8.2; Abnormal: Below low normal; Units: GM/DL; Status: F Test: ALBUMIN; Value: 3.0; Range: 3.2-5.2; Abnormal: Below low normal; Units: GM/DL; Status: F Test: ALBUMIN/GLOBULIN RATIO; Value: 0.91; Range: 1.00-1.93; Abnormal: Below low normal; Status: F Test Note: ; Units are mL/min/1.73 m2 Chronic Kidney Disease Staging per NKF: Stage I & II GFR >=60 Normal to Mildly Decreased Stage III GFR 30-59 Moderately Decreased Stage IV GFR 15-29 Severely Decreased Stage V GFR <15 Very Little GFR Left ESRD GFR <15 on DISH MAKER Lab Order: MAGNESIUM LEVEL; SPEC'M 07/15/16 07:28 Test: MAGNESIUM LEVEL; Value: 1.8; Range: 1.8-2.4; Units: MG/DL; Status: F Lab Order: Fingerstick Blood Sugar; SPEC'07/15/16 07:20 Test: BEDSIDE GLUCOSE; Value: 371; Range: 83-110; Abnormal: Above high normal; Units: MG/DL; Status: F Lab Order: Fingerstick Blood Sugar; SPEC'07/15/16 12:04 Test: BEDSIDE GLUCOSE; Value: 428; Range: 83-110; Abnormal: Above high normal; Units: MG/DL; Status: F Lab Order: Fingerstick Blood Sugar; SPEC'07/15/16 14:53 Test: BEDSIDE GLUCOSE; Value: 438; Range: 83-110; Abnormal: Above high normal; Units: MG/DL; Status: F Lab Order: Fingerstick Blood Sugar; SPEC'07/15/16 15:44 Test: BEDSIDE GLUCOSE; Value: 412; Range: 83-110; Abnormal: Above high normal; Units: MG/DL; Status: F Radiology Order: EKG-ADULT Test: EKG-ADULT REASON FOR EXAMINATION: sob; Stationary ECG Study; [facility] - ED; ; Test Date: 2016-07-14; Pat Name: TAMIA AUGUSTIN Department:; Room: -; Gender: M 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: dm; : 1940 Requested By: Irene Hebert; Order Number: [id number] Reading MD: Albert Viramontes; Measurements; Intervals [place]; Rate: 81 P: 16; VT: 219 QRS: -7; QRSD: 98 T: 33; QT: 353; QTc: 412; Interpretive Statements; SINUS RHYTHM WITH FIRST DEGREE AV BLOCK; NONSPECIFIC ST T-WAVE ABNORMALITY; SIMILAR TO 06/16/16; Electronically Signed On 07-14-2016 19:13:02 EST by Albert Viramontes; Radiology Order: Chest, 1 View Test: Chest, 1 View REASON FOR EXAMINATION: sob; Portable chest x-ray: Sitting AP view.; ; History: Shortness of breath.; ; Comparison study: June 16, 2016.; ; Findings: There is a extensive perihilar infiltrate pattern in the left lung.; Heart is mildly prominent unchanged. No pleural effusion is seen. There is; slight cephalization of the pulmonary vasculature.; ; Impression:; ; Fairly dense and extensive left perihilar infiltrate, probable pneumonia.; Asymmetric pulmonary edema is considered a less likely possibility.; ; ; Signed by; Abe Lee MD 07/14/2016 10:24 A; Outcome: 12:32 Decision to Hospitalize by Provider. 07/15 16:37 Patient left the ED. deg Signatures: Dispatcher [employer] EDMS Irene Hebert MD MD ml Cinthya Driver, Brake Tester Unit deg Elyse Garrison, RN RN kpj Allie Raymond, Reg Reg gb Jonathan Zambrano, Reg Reg lg Libia Dalton kt1 Braxton Wayne, Brake Tester Unit ml3 Mary Benton,RN RN jo3 Lucien Haines, CORPORATE REAL ESTATE SPECIALIST CORPORATE REAL ESTATE SPECIALIST kb5 Chalo Stevensa, CORPORATE REAL ESTATE SPECIALIST CORPORATE REAL ESTATE SPECIALIST ar3 Zenobia Esposito RN RN hs1 Lorena Joseph, CORPORATE REAL ESTATE SPECIALIST CORPORATE REAL ESTATE SPECIALIST ct3 Lucille Purcell dem1 Vidhi NicholsRN RN aa3 Sujey Lindsey,RN RN randal2 Sivan Mas,RN RN kc3 Calli Garcia2 Chart Complete MTDD
[2016-07-17] MEDS: ATORVASTATIN 20 MG TAB PO SCH (20:33)
[2016-07-18] VITALS (10 sets, daily range): BP systolic 90–144; BP diastolic 51–93; O2SAT 99
[2016-07-18] MEDS: IPRATROPIUM 0.5MG/ALBUTEROL 2.5MG INH SOL UD 3ML (DUONEB)(J7620) NEB SCH ×2 (01:40→08:47)
[2016-07-18 05:24] LABS: MEAN CORPUSCULAR HGB CONC 35.3 g/dl (32.0-36.5); RED CELL DISTRIBUTION WIDTH 15.4 % (11.5-14.5)
[2016-07-18 05:37] LABS: BILIRUBIN,TOTAL 0.8 MG/DL (0.2-1.0); CALCIUM LEVEL 8.1 MG/DL (8.8-10.2); CREATININE FOR GFR 1.62 MG/DL (0.70-1.30); GLOMERULAR FILTRATION RATE 44.4 (>42); POTASSIUM SERUM 4.1 MEQ/L (3.5-5.1)
[2016-07-18] MEDS: SLF 3 ML SYR IV SCH (05:56)
[2016-07-18] MEDS: METOPROLOL TART 25 MG TABLET PO SCH ×3 (05:56→11:54)
[2016-07-18] MEDS: ENOXAPARIN 100MG/1ML SYRINGE (J1650) SC SCH (05:56)
[2016-07-18] MEDS ORDERED: MOXIFLOXACIN 400 MG TAB PO SCH (06:00)
[2016-07-18] MEDS: HumaLOG INSULIN (NovoLOG) PER UNIT SC SCH ×2 (07:30→11:54)
[2016-07-18] MEDS: FUROSEMIDE 100 MG/10 ML VIAL (J1940) IV SCH ×2 (08:00)
[2016-07-18] MEDS: ASPIRIN 325 MG TAB PO SCH (09:00)
[2016-07-18] MEDS ORDERED: AMIODARONE 200 MG TAB (PACERONE) PO SCH (09:00)
[2016-07-18] MEDS: LEVEMIR (INSULIN DETEMIR) 1 UNITS/0.01ML SC SCH (09:00)
[2016-07-18] MEDS: PANTOPRAZOLE 40MG INJ (PROTONIX) (C9113) IV SCH (09:00)
[2016-07-18] MEDS: FAMOTIDINE 20 MG TAB PO SCH (09:00)
--- NOTE | 2016-07-18 10:16 | IPNPDOC ---
Assessment/Plan Date Seen The patient was seen on 07/18/16. Problems Problems: (1) Pneumonia Status: Acute Response to Treatment: Stable Problem Specific Plan: Monitor Clinically Problem Text: 07/18 - Clinically improving D#4 Avelox - now on po continue nebs (2) NSTEMI (non-ST elevated myocardial infarction) Status: Acute Discussed With: Histological Illustrator Problem Specific Plan: Monitor Clinically, Repeat Labs Problem Text: Dr Duran is seeing the pt, recommends adjusting beta faith, will start Metoprolol tartrate 25 mg po Q6h with hold parameters. Cont with ASA 325 mg, Lovenox 100 mg BID, Lipitor (will change to High dose). [facility] has [facility], recommend stabilizing pt prior to transfer. 07/16/15 - Tolerating Metoprolol Continue ASA 325/ Therapeutic Lovenox Consider transfer to [facility] if he stabilizes 07/18 - Continue Metoprolol/[id number]/Therapeutic Lovenox Plan to transfer to [facility] for cath once renal function stabilizes (3) Acute CHF (congestive heart failure) Status: Acute Problem Text: Likely flash pulmonary edema secondary to [place] - Echo with normal Systolic and Diastolic function Diuresing well with IV Lasix 80 q 8 (4) Acute respiratory failure with hypoxemia Status: Acute Problem Text: Secondary to Acute CHF and pneumonia Continue Lasix Continue Avelox On CPAP per Plugger. 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 07/16 - S/P 2 units PRBC Hgb improved some. Continue to monitor. Check stool guaiac. 07/18 - Hgb improving with diuresis. Occult blood tested in ER apparently negative. No guaiacs obtained otherwise despite order for this Will need wkup as outpatient once stable post [place] (7) HTN (hypertension) Status: Chronic Response to Treatment: Stable Problem Specific Plan: Monitor Clinically Problem Text: Controlled on current medication regimen. (8) DM2 (diabetes mellitus, type 2) Status: Chronic Response to Treatment: Stable Problem Specific Plan: Monitor Clinically Problem Text: BS persistently high in 300s - 400s; this may be due to acute infection. If they continue to remain high, we may need to increase his dose of levemir. 07/16 - Blood sugars remain high. Getting Solumedrol. Increase Levemir 07/18 - Increase Levemir further. (9) Nicotine dependence Status: Chronic Problem Specific Plan: Monitor Clinically Problem Text: Enc cessation. (10) COPD (chronic obstructive pulmonary disease) Status: Chronic Problem Specific Plan: Monitor Clinically Problem Text: Advair, nebs. Stop Solumedrol - no clear role for this currently and it is causing hyperglycemia (11) SIADH (syndrome of inappropriate ADH production) Status: Chronic Response to Treatment: Stable Problem Text: Chronically low Na+ - baseline around 125 SIADH per urine and serum Osmolality in June 06 - Na+ improving some with diuresis (12) Acute renal failure Status: Acute Response to Treatment: Improving Problem Text: Improving with diuresis Plan / VTE VTE Prophylaxis Ordered?: Yes Plan / Urinary Catheter Reason for insertion/continuin: Critical Pt monitoring Subjective Review of Systems CC/HPI The patient is a 75-year-old male admitted with a reason for visit of Diff Breathing. Events since last encounter Feels much better today. Less dyspnea. No cP. Constitutional: Denies: Chills, Fever Pulmonary: Reports: Dyspnea (still with AYALA on exertion but much improved), Denies: Cough Cardiovascular: Denies: Chest Pain, Palpitations Gastrointestinal: Denies: Abdominal Pain, Constipation, Diarrhea, Nausea, Vomiting Objective Physical Examination General Exam: Positive: Alert (sitting up in chair. No signs of dyspnea. ), No Acute Distress, Other (On BIPAP. Drowsy, but arousable, confused) Chest Exam: Positive: Rales (better a/e, few + Bibasilar rales), Negative: Wheezing Heart Exam: Positive: Rate Normal, Negative: Murmurs Abdomen Exam: Positive: Normal bowel sounds, Soft, Negative: Tenderness Male Exam: Negative: Edema Extremity Exam: Negative: Edema Vital Signs/I&O Vital Signs Date Time Temp Pulse Resp B/P Pulse Ox O2 Delivery O2 Flow Rate FiO2 07/18/16 08:00 96.8 114 20 90/59 94 Nasal Cannula 3.0 07/18/16 04:00 30 I&O- Last 24 Hours up to 6 AM 07/18/16 06:00 Intake Total 1220 ml Output Total 3660 ml Balance -2440 ml Laboratory Data Labs 24H Laboratory Tests 2 07/17/16 11:24: Bedside Glucose (Misc Panel) 385H 07/17/16 17:04: Bedside Glucose (Misc Panel) 465H 07/17/16 20:24: Bedside Glucose (Misc Panel) 482H 07/18/16 04:51: Blood Urea Nitrogen 47H, Creatinine 1.62H, Sodium Level 127L, Potassium Level 4.1, Chloride Level 88L, Carbon Dioxide Level 29, Calcium Level 8.1L, Aspartate Amino Transf (AST/SGOT) 22, Alanine Aminotransferase (ALT/SGPT) 54, Alkaline Phosphatase 48, Total Bilirubin 0.8, Total Protein 6.0L, Albumin 3.0L, Albumin/ Globulin Ratio 1.00, Anion Gap 10, Glomerular Filtration Rate 44.4 CBC/BMP Laboratory Tests 07/18/16 04:51 Calcium Level 8.1 L, Aspartate Amino Transf (AST/SGOT) 22, Alanine Aminotransferase (ALT/SGPT) 54, Alkaline Phosphatase 48, Total Bilirubin 0.8, Total Protein 6.0 L, Albumin 3.0 L, Red Blood Count 2.99 L, Mean Corpuscular Volume 88.0, Mean Corpuscular Hemoglobin 31.0, Mean Corpuscular Hemoglobin Concent 35.3, Red Cell Distribution Width 15.4 H FSBS Laboratory Tests Test 07/17/16 11:24 07/17/16 17:04 07/17/16 20:24 Range/Units Bedside Glucose (Misc Panel) 385 465 482 83-110 MG/DL Microbiology Microbiology 07/14/16 Blood Culture - Preliminary, Resulted No Growth after 72 hours. All specime... 07/14/16 Blood Culture - Final, Complete Bacillus Sp., Not Anthracis 07/15/16 MRSA Screen - Final, Complete 07/14/16 Influenza Virus Type A Antigen - Final, Complete 07/14/16 Influenza Virus Type B Antigen - Final, Complete ADRIANA ASHRAF PA-C 12, 2017 10:16
--- NOTE | 2016-07-18 10:44 | IPNPDOC ---
[facility] Cardiology Progress Note Date of Service/Time The patient was seen on 07/18/16 at 10:34. Cardiology Progress Note Mr. Zambrano is a 75 y/o male who initially presented with SOB, chills and retrosternal chest pain that had been getting worse for the prior 5 days to admission. It was found on presentation to the ED that the pt. had sustained an NSTEMI. OBJECTIVE: PHYSICAL EXAMINATION: VITAL SIGNS: Please see below. GENERAL APPEARANCE: comfortable, in no distress, sitting upright in bed HEENT: NCAT, PERRLA, EOMI, tongue midline, moist mucus membranes, nares patent b /l LUNGS: diffuse wheeze throughout, otherwise no rales or rhonchi appreciated HEART: normal s1 and s2, rate in 110 range, atrial fibrillation , no gallops, rubs or murmurs appreciated ABDOMEN: soft, non distended, NABSx4, no organomegaly SKIN: dry, intact NEUROLOGICAL: no focal deficits appreciated PSYCHIATRIC: normal affect, appropriate. LABORATORY WORK: Please see below. ASSESSMENT AND PLAN: Mr Zambrano seemed to be doing well this morning, he denied being SOB, having chest pain or palpitations. His heart rate seems to be stable in the 110 to teen's range, he is currently on lasix therapy still and was net negative almost 4 L one day ago, his current weight is measured at 90.4 kg. His hemoglobin seems to be better today again at 9.3 from 8.9, his BUN and Creatine is also better today at 47 and 1.62, down from 47 and 1.76 respectively. Would continue diuretic therapy for patient, and monitor his BUN/Cr. Patient ultimately will need cardiac catherization and would suggest transfer to [place] for this either today or tomorrow if possible. No further recommendations at this time. Vital Signs/I&O VS/I&O Vital Signs Date Time Temp Pulse Resp B/P Pulse Ox O2 Delivery O2 Flow Rate FiO2 07/18/16 10:00 122 18 120/93 99 Nasal Cannula 3.0 07/18/16 08:00 96.8 07/18/16 04:00 30 I&O- Last 24 Hours up to 6 AM 07/18/16 06:00 Intake Total 1220 ml Output Total 3660 ml Balance -2440 ml Laboratory Data 24H LABS Laboratory Tests 2 07/17/16 11:24: Bedside Glucose (Misc Panel) 385H 07/17/16 17:04: Bedside Glucose (Misc Panel) 465H 07/17/16 20:24: Bedside Glucose (Misc Panel) 482H 07/18/16 04:51: Blood Urea Nitrogen 47H, Creatinine 1.62H, Sodium Level 127L, Potassium Level 4.1, Chloride Level 88L, Carbon Dioxide Level 29, Calcium Level 8.1L, Aspartate Amino Transf (AST/SGOT) 22, Alanine Aminotransferase (ALT/SGPT) 54, Alkaline Phosphatase 48, Total Bilirubin 0.8, Total Protein 6.0L, Albumin 3.0L, Albumin/ Globulin Ratio 1.00, Anion Gap 10, Glomerular Filtration Rate 44.4 CBC/BMP Laboratory Tests 07/18/16 04:51 Calcium Level 8.1 L, Aspartate Amino Transf (AST/SGOT) 22, Alanine Aminotransferase (ALT/SGPT) 54, Alkaline Phosphatase 48, Total Bilirubin 0.8, Total Protein 6.0 L, Albumin 3.0 L, Red Blood Count 2.99 L, Mean Corpuscular Volume 88.0, Mean Corpuscular Hemoglobin 31.0, Mean Corpuscular Hemoglobin Concent 35.3, Red Cell Distribution Width 15.4 H FSBS Laboratory Tests Test 07/17/16 11:24 07/17/16 17:04 07/17/16 20:24 Range/Units Bedside Glucose (Misc Panel) 385 465 482 83-110 MG/DL Microbiology Microbiology 07/14/16 Blood Culture - Preliminary, Resulted No Growth after 72 hours. All specime... 07/14/16 Blood Culture - Final, Complete Bacillus Sp., Not Anthracis 07/15/16 MRSA Screen - Final, Complete 07/14/16 Influenza Virus Type A Antigen - Final, Complete 07/14/16 Influenza Virus Type B Antigen - Final, Complete GME ATTESTATION GME ATTESTATION My preceptor for this patient encounter was physically present in the building during the encounter and was fully available. As needed, all aspects of the patient interview, examination, medical decision making process, and medical care plan development were reviewed and approved by the preceptor. Preceptor is aware and concurs with the plan as stated in the body of this note and will attest to such by his/her cosignature. LEYDA ORR DO Jul 18, 2016 10:44
[2016-07-18] MEDS: ADVAIR DISKUS 250/50 INH PWD INH SCH (12:20)
--- NOTE | 2016-07-18 15:30 | EDDOCDS ---
Nurse's Notes [facility] Name: Tamia Augustin Age: 75 yrs Sex: Male : 1940 Arrival Date: 07/14/2016 Time: 09:03 Bed Admit Hold Private MD: Diagnosis: Chronic obstructive pulmonary disease with (acute) exacerbation;Pneumonia, unspecified organism;Acute systolic (congestive) heart failure;Anemia, unspecified;Hypo-osmolality and hyponatremia;Non-ST elevation (NSTEMI) myocardial infarction Presentation: 07/14 09:07 Presenting complaint: EMS states: Pt is on home O2. Uses a concentrator at home and jo3 concentrator stopped working overnight. High 70s O2 sat on EMS arrival. SL 20g in left hand. Duo neb and 125mg Solu-Medrol given en route. O2 sat 94% at this time. Home O2 dose 2L. Suicide/Homicide risk assessment- the patient denies having any suicidal and/or homicidal ideations and does not present with any other emotional, behavioral or mental health complaints. Status: Patient is not a air deodorizer servicer or dependent. Transition of care: patient was not received from another setting of care. 09:07 Acuity: GLEN Level 3 jo3 09:07 Method Of Arrival: Ambulance jo3 09:20 Adult Sepsis Screening: The patient does not have new or worsening altered mentation. jo3 Patient's respiratory rate is less than 22. Systolic blood pressure is greater than 100. Patient has a qSOFA score of 0- Negative Sepsis Screen. Triage Assessment: 09:46 General: Appears in no apparent distress, Behavior is appropriate for age, cooperative, jo3 drowsy. Pain: Denies pain. Neurological: Level of Consciousness is awake, alert, Oriented to person, place, time. Cardiovascular: No deficits noted. Rhythm is sinus rhythm with unifocal PVCs. Respiratory: Onset: The symptoms/episode began/occurred gradually, Airway is patent Respiratory effort is even, unlabored, Breath sounds are coarse expiratory bilaterally. Breath sounds with crackles bilaterally. in left posterior lower lobe, right posterior middle lobe and right posterior lower lobe Reports shortness of breath cough that is productive. Derm: Skin is intact, Skin is dry, Skin is pale, Skin temperature is warm. Historical: - Allergies: PENICILLINS (Hives); - Home Meds: 1. losartan-hydrochlorothiazide 100-25 mg oral tab 0.5 tab once daily 2. aspirin 81 mg Oral tab 2 tabs once daily (Last dose: 07/13/2016) 3. atenolol 50 mg Oral tab 1 tab once daily (Last dose: 07/13/2016) 4. atorvastatin 20 mg oral tab 1 tab once daily (Last dose: 07/13/2016) 5. ranitidine HCl 150 mg Oral tab 1 tab once daily (Last dose: 07/13/2016) 6. Vitamin D2 1,000 unit oral cap (Last dose: 07/13/2016) 7. metformin 500 mg Oral tab 0.5 tab 2 times per day (Last dose: 07/13/2016) 8. finasteride 5 mg oral tab 1 tab once daily 9. Advair Diskus 250-50 mcg/dose Inhl dsdv 1 puff 2 times per day (Last dose: 07/13/2016) - PMHx: CAD; Diabetes - IDDM: controlled; Emphysema; GERD; Hypercholesterolemia; Hypertension; Nicotine Abuse; Polydispsia; Stroke; - PSHx: Appendectomy; - Social history: Smoking status: No barriers to communication noted, The patient speaks fluent Yoruba, Speaks appropriately for age, Smoking status: Patient uses tobacco products, heavy tobacco smoker. - Family history: Not pertinent. - : The pt / caregiver states he / she is not on anticoagulants. Home medication list is obtained from family members. - Exposure Risk Screening:: None identified. Screenin:48 Screening information is obtained from the patient. Fall risk: No risks identified. jo3 Assistance ADL's: requires no assistance with activities of daily living. Abuse/DV Screen: The patient / caregiver reports he/she is: not in a situation that causes fear, pain or injury. Nutritional screening: No deficits noted. Advance Directives: There is no active DNR order. home support is adequate. Assessment: 09:48 Reassessment: See triage assessment . jo3 10:59 General: Appears in no apparent distress, comfortable, Behavior is cooperative, drowsy. jo3 Neurological: No deficits noted. Cardiovascular: Rhythm is sinus rhythm with unifocal PVCs Chest pain is denied Pt now reports that he had chest pain x 2 nights. Denies at this time . Respiratory: Airway is patent Respiratory effort is even, unlabored. Derm: Skin is intact, Skin is dry, Skin is pale, Skin temperature is warm. 11:48 Reassessment: Patient appears in no apparent distress at this time. No acute changes jo3 noted at this time. Awaiting admitting physician at this time. Aware of plan of care . 12:45 General: Appears in no apparent distress, comfortable, Behavior is appropriate for age, jo3 cooperative, drowsy. Neurological: Level of Consciousness is awake, alert, Oriented to person, place, time. Cardiovascular: Rhythm is sinus rhythm with unifocal PVCs. Derm: Skin is intact, Skin is dry, Skin is pale, Skin temperature is warm. 13:35 Reassessment: Patient appears in no apparent distress at this time. Patient denies pain jo3 at this time. Patient states feeling better. Patient states symptoms have improved. Multiple family at bedside. Awaiting available bed for admissions. Aware of plan of care . 14:22 Reassessment: Patient appears in no apparent distress at this time. Patient denies pain jo3 at this time. Family remains at bedside. Continues to await available bed on PCU. Aware of plan of care . 15:40 General: Appears in no apparent distress, comfortable, Behavior is appropriate for age, jo3 cooperative, pleasant. General: Awaiting available bed for admission. Aware of plan of care . Neurological: Level of Consciousness is awake, alert, Oriented to person, place, time. Cardiovascular: Rhythm is sinus rhythm with unifocal PVCs. Derm: Skin is intact, Skin is dry, Skin is pale. 16:55 Reassessment: Patient appears in no apparent distress at this time. Appears asleep on jo3 stretcher at this time. Awaiting available bed for admission. Aware of plan of care. Family at bedside . 17:56 Reassessment: Patient appears in no apparent distress at this time. Has some c/o mild jo3 discomfort due to being on stretcher. Looking for available bed to put pt into. Awaiting Tylenol from pharmacy to administer as per written order . 18:51 General: Appears in no apparent distress, Behavior is appropriate for age, cooperative. jo3 Neurological: No deficits noted. Level of Consciousness is awake, alert, Oriented to person, place, time. Cardiovascular: Rhythm is sinus rhythm with unifocal PVCs Chest pain is denied. Respiratory: Airway is patent Respiratory effort is even, unlabored. Derm: Skin is intact, Skin is dry. Vital Signs: 09:12 BP 134 / 86 (auto/); jo3 09:13 Pulse 80 MON; Pulse Ox 93% ; jo3 09:14 BP 134 / 86; Pulse 80; Resp 20; Temp 98.5(TE); Pulse Ox 91% 8% ; Pain 0/10; nb2 09:27 BP 128 / 60 (auto/); jo3 09:27 Pulse 80 MON; Pulse Ox 94% ; jo3 09:28 Weight 88 kg; Height 5 ft. 7 in. (170.18 cm); dem1 09:42 BP 115 / 57 (auto/); jo3 09:42 Pulse 82 MON; Pulse Ox 83% ; jo3 09:57 BP 127 / 60 (auto/); jo3 09:57 Pulse 86 MON; Pulse Ox 91% ; jo3 10:12 BP 120 / 55 (auto/); jo3 10:12 Pulse 86 MON; Pulse Ox 93% ; jo3 10:27 BP 121 / 58 (auto/); jo3 10:27 Pulse 84 MON; Pulse Ox 95% ; jo3 10:42 BP 125 / 63 (auto/); jo3 10:42 Pulse 86 MON; Pulse Ox 92% ; jo3 10:56 Pulse 86 MON; Pulse Ox 93% ; jo3 10:57 BP 114 / 55 (auto/); jo3 11:12 BP 122 / 62 (auto/); jo3 11:12 Pulse 82 MON; Pulse Ox 89% ; jo3 11:27 BP 116 / 63 (auto/); jo3 11:27 Pulse 78 MON; Pulse Ox 90% ; jo3 11:42 BP 110 / 59 (auto/); jo3 11:42 Pulse 76 MON; Pulse Ox 90% ; jo3 11:57 BP 113 / 62 (auto/); jo3 11:57 Pulse 74 MON; Pulse Ox 90% ; jo3 12:12 BP 115 / 63 (auto/); jo3 12:12 Pulse 72 MON; Pulse Ox 92% ; jo3 12:26 Pulse 74 MON; Pulse Ox 92% ; jo3 12:27 BP 124 / 66 (auto/); jo3 12:42 BP 119 / 68 (auto/); jo3 12:42 Pulse 76 MON; Pulse Ox 93% ; jo3 12:57 BP 128 / 68 (auto/); jo3 12:57 Pulse 72 MON; Pulse Ox 94% ; jo3 13:12 BP 126 / 70 (auto/); jo3 13:12 Pulse 72 MON; Pulse Ox 94% ; jo3 13:27 BP 120 / 65 (auto/); jo3 13:27 Pulse 72 MON; Pulse Ox 93% ; jo3 13:42 BP 124 / 65 (auto/); jo3 13:42 Pulse 74 MON; Pulse Ox 96% ; jo3 14:12 BP 124 / 62 (auto/); jo3 14:12 Pulse 76 MON; jo3 14:27 BP 126 / 68 (auto/); jo3 14:27 Pulse 72 MON; Pulse Ox 95% ; jo3 14:42 BP 115 / 60 (auto/); jo3 14:42 Pulse 74 MON; Pulse Ox 95% ; jo3 14:57 BP 118 / 63 (auto/); jo3 14:57 Pulse 76 MON; Pulse Ox 94% ; jo3 15:27 BP 132 / 70 (auto/); jo3 15:27 Pulse 80 MON; Pulse Ox 93% ; jo3 15:42 BP 136 / 67 (auto/); jo3 15:42 Pulse 84 MON; Pulse Ox 96% ; jo3 15:57 BP 135 / 71 (auto/); jo3 15:57 Pulse 78 MON; Pulse Ox 94% ; jo3 16:12 BP 134 / 76 (auto/); jo3 16:12 Pulse 82 MON; Pulse Ox 94% ; jo3 16:27 BP 137 / 72 (auto/); jo3 16:27 Pulse 78 MON; Pulse Ox 92% ; jo3 16:42 BP 138 / 78 (auto/); jo3 16:42 Pulse 88 MON; jo3 16:57 BP 131 / 59 (auto/); jo3 16:57 Pulse 84 MON; Pulse Ox 96% ; jo3 17:12 BP 132 / 67 (auto/); jo3 17:12 Pulse 82 MON; Pulse Ox 96% ; jo3 17:27 BP 129 / 61 (auto/); jo3 17:27 Pulse 80 MON; Pulse Ox 97% ; jo3 17:42 BP 117 / 56 (auto/); jo3 17:42 Pulse 80 MON; Pulse Ox 96% ; jo3 17:57 BP 137 / 65 (auto/); jo3 17:57 Pulse 80 MON; Pulse Ox 96% ; jo3 18:12 BP 141 / 69 (auto/); jo3 18:12 Pulse 80 MON; Pulse Ox 96% ; jo3 18:27 BP 140 / 68 (auto/); jo3 18:27 Pulse 82 MON; Pulse Ox 94% ; jo3 18:42 BP 137 / 68 (auto/); jo3 18:42 Pulse 82 MON; Pulse Ox 97% ; jo3 09:28 Body Mass Index 30.39 (88.00 kg, 170.18 cm) dem1 Vitals: 09:14 Log In Time N/A - ambulance arrival. nb2 ED Course: 09:04 Patient visited by Irena Stevens PCA. ar3 09:04 Patient moved to Waiting ar3 09:05 Sujey Lindsey,RN is Primary Nurse. ar3 09:05 Keisha Mcarthur,RN is Primary Nurse. ar3 09:05 Patient moved to 8 ar3 09:11 Triage Initiated jo3 09:14 Placed in gown. Bed in low position. Call light in reach. Side rails up X2. Cardiac nb2 monitor on. Pulse ox on. NIBP on. 09:15 Patient visited by Calli Garcia. nb2 09:16 Patient visited by aMry Benton,MIRANDA. jo3 09:21 Irene Hebert MD is Attending Physician. ml 09:21 Patient visited by Irene Hebert MD. ml 09:31 EKG done. (by ED staff). Reviewed by Irene Hebert MD. nb2 09:35 Patient visited by Calli Garcia. nb2 09:36 Patient visited by Calli Garcia. nb2 09:45 BLOOD CULTURES Sent. jo3 09:45 Liver Profile Sent. jo3 09:45 -Influenza A&B Rapid Antigen - Nose Sent. jo3 09:45 -Blood Culture Sent. jo3 09:45 Troponin Sent. jo3 09:45 CIP Sent. jo3 09:46 BNP Sent. jo3 09:46 MED Profile Sent. jo3 09:46 CBC with Diff Sent. jo3 09:48 The patient / caregiver is instructed regarding the plan of care and ED course. jo3 09:48 Maintain field IV. Dressing intact. Good blood return noted. Site clean & dry. Gauge & jo3 site: 20g in left hand. Labs drawn. (by ED staff). Sent per order to lab. Labs/Blood culture drawn. 09:50 Patient visited by Mary Benton RN. jo3 10:15 Notified attending ED physician of Critical lab value. Troponin 2.87. jo3 10:15 Inserted saline lock: 18 gauge in left antecubital area. No procedures done that jo3 require assistance. Labs drawn. Sent per order to lab. 10:40 Chest, 1 View Returned. EDMS 10:56 Patient name changed from Tamia\S\\S\Alberry\S\ to Tamia\S\G\S\Alberry. EDMS 10:59 [facility] Payment Agreement was scanned into TapTrak and attached to record. lg 11:03 Patient visited by Mary Benton RN. jo3 11:50 Patient visited by Mary Benton RN. jo3 11:50 Primary Nurse role handed off by Sujey Lindsey RN ct3 11:53 Patient visited by Mary Benton RN. jo3 12:30 Bharat Muse MD is Hospitalizing Provider. ml 13:27 Patient moved to Admit Hold kpj 14:24 Patient visited by Mary Benton RN. jo3 14:48 Notified private physician of abnormal lab values. Dr Amberly Muse notified of troponin level [facility] of 4.09, no new orders.. 17:41 Patient visited by Mary Benton RN. jo3 17:59 Patient visited by Mary Benton RN. jo3 18:03 Patient visited by Mary Benton RN. jo3 18:54 Patient visited by Mary Benton RN. jo3 18:56 Sujey Lindsey RN is Primary Nurse. ko2 19:03 Patient visited by Lucien Haines PCA. kb5 19:06 Patient visited by Mary Benton RN. jo3 19:25 Patient moved to 20 ml3 19:48 EKG-ADULT Returned. EDMS 21:34 Patient moved to Admit Hold ml3 22:32 Patient visited by Lucien Haines PCA. kb5 07/15 00:42 Primary Nurse role handed off by Keisha Mcarthur RN kb5 07:22 Primary Nurse role handed off by Sujey Lindsey RN deg 13:00 T-Sheet-- Draft Copy was scanned into TapTrak and attached to record. gb 15:56 Inserted peripheral IV: 18gauge IV in left antecubital area Patient tolerated the aa3 procedure well. 07/16 13:54 ECG/EKG was scanned into [employer] and attached to record. gb 13:54 Consents was scanned into MEDHOST and attached to record. gb 13:55 Radiology Report was scanned into MEDHOST and attached to record. gb 13:55 Other: LIVING WILL was scanned into MEDHOST and attached to record. gb 13:55 Other: MOLST was scanned into [employer]HOCorpsolv and attached to record. gb Administered Medications: 07/14 09:20 Drug: Albuterol 5 mg [albuterol sulfate 2.5 mg/0.5 mL solution for nebulization (1 mL)] kt1 Route: Nebulizer; 09:43 Drug: Albuterol-Ipratropium 3 ml [ipratropium-albuterol 0.5 mg-3 mg(2.5 mg base)/3 mL kt1 nebulization soln (3 mL)] Route: Inhalation; 10:32 Drug: Aspirin 324 mg [aspirin 81 mg chewable tablet (4 tabs)] Route: PO; jo3 10:34 Drug: Furosemide 20 mg [furosemide 10 mg/mL injection solution (2 mL)] Route: IVP; jo3 Site: left hand; 10:38 Drug: Moxifloxacin 400 mg [moxifloxacin 400 mg/250 mL-sodium chloride(iso) intravenous jo3 piggyback] Route: IV; Rate: 400 mg/hr; Infused Over: 60 mins; Site: left hand; 11:46 Follow up: IV Status: Completed infusion jo3 16:20 Drug: Atenolol 50 mg [atenolol 25 mg tablet (2 tabs)] Route: PO; jo3 16:20 Drug: Finasteride (Proscar) 5 mg Route: PO; jo3 16:20 Drug: Nicotine Patch 14 mg/24 hr 14 mg Route: Transdermal; Site: right upper arm; jo3 16:20 Drug: Losartan 50 mg [losartan 25 mg tablet (2 tabs)] Route: PO; jo3 16:55 Drug: Pantoprazole 40 mg [pantoprazole 40 mg tablet,delayed release (1 tabs)] Route: PO;jo3 16:55 Drug: Solu-MEDROL 60 mg [Solu-Medrol 500 mg intravenous solution (60 mg)] Route: IVP; jo3 Site: right antecubital; 18:55 Drug: Acetaminophen 1000 mg [acetaminophen 500 mg tablet (2 tabs)] Route: PO; jo3 07/15 13:45 Drug: Atropine 1 mg [atropine 0.4 mg/mL injection solution (2.5 mL)] Route: IVP; Site: hs1 right forearm; Attachments: 13:54 Consents gb Point of Care Testing: Blood Glucose: 07/15 15:46 Blood Glucose: 412 mg/dL; kc3 Ranges: RT: 07/14 09:43 Initial Med Neb Given as ordered Patient was instructed and evaluated on procedure. kt1 Order Results: Lab Order: CBC with Diff; SPEC'M 07/14/16 09:34 Test: WHITE BLOOD COUNT; Value: 8.0; Range: 4.0-10.0; Units: K/mm3; Status: F Test: RED BLOOD COUNT; Value: 2.65; Range: 4.30-6.10; Abnormal: Below low normal; Units: M/mm3; Status: F Test: HEMOGLOBIN; Value: 8.4; Range: 14.0-18.0; Abnormal: Below low normal; Units: g/dl; Status: F Test: HEMATOCRIT; Value: 23.5; Range: 42.0-52.0; Abnormal: Below low normal; Units: %; Status: F Test: MEAN CORPUSCULAR VOLUME; Value: 88.7; Range: 80.0-96.0; Units: fl; Status: F Test: MEAN CORPUSCULAR HEMOGLOBIN; Value: 31.6; Range: 27.0-33.0; Units: pg; Status: F Test: MEAN CORPUSCULAR HGB CONC; Value: 35.7; Range: 32.0-36.5; Units: g/dl; Status: F Test: RED CELL DISTRIBUTION WIDTH; Value: 14.5; Range: 11.5-14.5; Units: %; Status: F Test: PLATELET COUNT, AUTOMATED; Value: 323; Range: 150-450; Units: k/mm3; Status: F Test: NEUTROPHILS %; Value: 82.8; Range: 36.0-66.0; Abnormal: Above high normal; Units: %; Status: F Test: LYMPH %; Value: 10.3; Range: 24.0-44.0; Abnormal: Below low normal; Units: %; Status: F Test: MONO %; Value: 4.0; Range: 0.0-5.0; Units: %; Status: F Test: EOS %; Value: 0.3; Range: 0.0-3.0; Units: %; Status: F Test: BASO %; Value: 0.6; Range: 0.0-1.0; Units: %; Status: F Test: LARGE UNSTAINED CELL %; Value: 2.1; Range: 0.0-4.0; Units: %; Status: F Test: NEUTROPHILS #; Value: 6.6; Range: 1.8-7.7; Units: K/mm3; Status: F Test: LYMPH #; Value: 0.8; Range: 1.5-4.5; Abnormal: Below low normal; Units: K/mm3; Status: F Test: MONO #; Value: 0.3; Range: 0.0-0.8; Units: K/mm3; Status: F Test: EOS #; Value: 0.0; Range: 0.0-0.50; Units: K/mm3; Status: F Test: BASO #; Value: 0.0; Range: 0.0-0.2; Units: K/mm3; Status: F Test: LARGE UNSTAINED CELL #; Value: 0.2; Range: 0.0-0.4; Units: K/mm3; Status: F Lab Order: MED Profile; SPEC'M 07/14/16 09:34 Test: GLUCOSE, FASTING; Value: 166; Range: 83-110; Abnormal: Above high normal; Units: MG/DL; Status: F Test: BLOOD UREA NITROGEN; Value: 32; Range: 7-18; Abnormal: Above high normal; Units: MG/DL; Status: F Test: CREATININE FOR GFR; Value: 1.35; Range: 0.70-1.30; Abnormal: Above high normal; Units: MG/DL; Status: F Test: GLOMERULAR FILTRATION RATE; Value: 54.8; Range: >42; Status: F Test: SODIUM LEVEL; Value: 123; Range: 136-145; Abnormal: Below low normal; Units: MEQ/L; Status: F Test: POTASSIUM SERUM; Value: 4.6; Range: 3.5-5.1; Units: MEQ/L; Status: F Test: CHLORIDE LEVEL; Value: 89; Range: 98-107; Abnormal: Below low normal; Units: MEQ/L; Status: F Test: CARBON DIOXIDE LEVEL; Value: 24; Range: 21-32; Units: MEQ/L; Status: F Test: ANION GAP; Value: 10; Range: 8-16; Units: MEQ/L; Status: F Test: CALCIUM LEVEL; Value: 8.5; Range: 8.8-10.2; Abnormal: Below low normal; Units: MG/DL; Status: F Test Note: ; Units are mL/min/1.73 m2 Chronic Kidney Disease Staging per NKF: Stage I & II GFR >=60 Normal to Mildly Decreased Stage III GFR 30-59 Moderately Decreased Stage IV GFR 15-29 Severely Decreased Stage V GFR <15 Very Little GFR Left ESRD GFR <15 on DOWEL INSERTING MACHINE 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 Lab Order: BNP; SPEC07/14/16 09:34 Test: BRAIN NATRIURETIC PEPTIDE; Value: 576; Range: <100; Abnormal: Above high normal; Units: PG/ML; Status: F Lab Order: CIP; SPEC'07/14/16 09:34 Test: CPK CREATINE PHOSPHOKINASE; Value: 228; Range: 39-308; Units: U/L; Status: F Test: CK-MB VALUE MASS; Value: 8.0; Range: 0.0-3.6; Abnormal: Above high normal; Units: NG/ML; Status: F Test: MB/CK RELATIVE INDEX; Value: 3.50; Range: < OR =4; Status: F Test Note: ; DIAGNOSIS CRITERIA MMB ng/ml Relative Index (RI) NON-AMI < or = 5 N/A [place] > 5 < or = 4 AMI > 5 > 4 Lab Order: Troponin; SPEC'07/14/16 09:34 Test: TROPONIN I; Value: 2.87; Range: < 0.10; Abnormal: Above upper panic limits; Units: NG/ML; Status: F Test Note: ; Troponin I Reference Interval for [employer] [place]: 99th Percentile= 0.00-0.045 ng/ml Risk Stratification: <= 0.10 ng/ml Decreased Risk for Adverse Clinical Events. 0.10-1.50 ng/ml Increased Risk for Adverse Clinical Events. Evaluation of additional criterion and/or repeat testing in 2-6 hours is suggested to rule out myocardial damage. >= 1.50 ng/ml Indicative of Myocardial Injury. Lab Order: -Blood Culture; SPEC'M 07/14/16 09:34 Test: BLOOD CULTURE; Value: DATE POSITIVE DETECTED 07/15/16; Status: F Test: BLOOD CULTURE; Value: EXTERNAL GS (REQUIRED!!!) GRAM POSITIVE RODS; Status: F Lab Order: -Arterial Blood Gas; SPEC'M 07/14/16 09:35 Test: ABG pH (ARTERIAL); Value: 7.419; Range: 7.350-7.450; Units: UNITS; Status: F Test: ABG PARTIAL PRESSURE CO2; Value: 34.8; Range: 35.0-45.0; Abnormal: Below low normal; Units: mmHg; Status: F Test: ABG PARTIAL PRESSURE O2; Value: 81.6; Range: 75.0-100.0; Units: mmHg; Status: F Test: ABG TOTAL CO2; Value: 23.1; Range: 23.0-31.0; Units: MEQ/L; Status: F Test: ABG HCO3; Value: 22.0; Range: 22.0-26.0; Units: MEQ/L; Status: F Test: ABG BASE EXCESS; Value: -2.1; Range: -2.0-2.0; Abnormal: Below low normal; Status: F Test: ABG STANDARD HCO3; Value: 22.7; Range: 22.0-26.0; Units: MEQ/L; Status: F Test: ABG O2 SATURATION; Value: 95.5; Range: 95.0-99.0; Units: %; Status: F Test: ABG DEVICE; Value: NASAL BETTY; Status: F Lab Order: -Influenza A&B Rapid Antigen - Nose; SPEC'M 07/14/16 09:34 Test: INFLUENZA A RAPID SCR by ICA; Value: INFLUENZA A RESULTS NEGATIVE; Status: F Test: INFLUENZA A RAPID SCR by ICA; Value: Comments:; Status: F Test: INFLUENZA B RAPID SCR by ICA; Value: INFLUENZA B RESULTS NEGATIVE; Status: F Test Note: ; The Influenza test is a direct rapid immunoassay for the qualitative detection of Influenza viral antigen. Cell culture (Viral Culture) testing should be considered to confirm NEGATIVE results and to assist in detecting other viruses that can provide similar clinical symptoms. Please contact the lab within 24 hours ([phone]) if confirmatory testing is desired. Lab Order: Liver Profile; SPEC'M 07/14/16 09:34 Test: AST/SGOT; Value: 26; Range: 15-37; Units: U/L; Status: F Test: ALT/SGPT; Value: 29; Range: 12-78; Units: U/L; Status: F Test: ALKALINE PHOSPHATASE; Value: 55; Range: 45-117; Units: U/L; Status: F Test: BILIRUBIN,TOTAL; Value: 0.8; Range: 0.2-1.0; Units: MG/DL; Status: F Test: BILIRUBIN,DIRECT; Value: 0.3; Range: 0.0-0.2; Abnormal: Above high normal; Units: MG/DL; Status: F Test: TOTAL PROTEIN; Value: 6.7; Range: 6.4-8.2; Units: GM/DL; Status: F Test: ALBUMIN; Value: 3.3; Range: 3.2-5.2; Units: GM/DL; Status: F Test: ALBUMIN/GLOBULIN RATIO; Value: 0.97; Range: 1.00-1.93; Abnormal: Below low normal; Status: F Lab Order: BLOOD CULTURES; SPEC'M 07/14/16 09:42 Test: BLOOD CULTURE; Value: No growth after 24 hours . All specimens observed; Status: F Test: BLOOD CULTURE; Value: for 7 days. Results final at that time.; Status: F Lab Order: PT/INR; SPEC'M 07/14/16 09:42 Test: PROTHROMBIN TIME; Value: 13.7; Range: 12.3-14.5; Units: SECONDS; Status: F Test: INR; Value: 1.04; Status: F Test Note: ; THERAPUTIC HUMAN INR VALUES INDICATIONS NORMAL RANGES PROPHYLAXIS/TREATMENT OF: VENOUS THROMBOSIS 2.0-3.0 PULMONARY EMBOLISM 2.0-3.0 PREVENTION OF SYSTEMIC EMBOLISM FROM: TISSUE HEART VALVES 2.0-3.0 ACUTE MYOCARDIAL INFARCTION 2.0-3.0 VALVULAR HEART DISEASE 2.0-3.0 ATRIAL FIBRILLATION 2.0-3.0 MECHANICAL VALVES(HIGH RISK) 2.5-3.5 RECURRENT MYOCARDIAL INFARCTION 2.5-3.5 Lab Order: PTT; [facility] 07/14/16 09:42 Test: PARTIAL THROMBOPLASTIN TIME; Value: 33.8; Range: 26.6-37.1; Units: SECONDS; Status: F Lab Order: Type & Screen; [facility]07/14/16 10:55 Test: BLOOD TYPE; Value: B POS; Status: F Test: AB SCREEN (INDIRECT BLACK)GEL; Value: NEGATIVE; Status: F Lab Order: CARDIAC INJURY PROFILE; [facility]07/14/16 13:58 Test: CPK CREATINE PHOSPHOKINASE; Value: 215; Range: 39-308; Units: U/L; Status: F Test: CK-MB VALUE MASS; Value: 8.1; Range: 0.0-3.6; Abnormal: Above high normal; Units: NG/ML; Status: F Test: MB/CK RELATIVE INDEX; Value: 3.76; Range: < OR =4; Status: F Test Note: ; DIAGNOSIS CRITERIA MMB ng/ml Relative Index (RI) NON-AMI < or = 5 N/A [place] > 5 < or = 4 AMI > 5 > 4 Lab Order: CARDIAC INJURY PROFILE; [facility] 07/14/16 20:44 Test: CPK CREATINE PHOSPHOKINASE; Value: 227; Range: 39-308; Units: U/L; Status: F Test: CK-MB VALUE MASS; Value: 8.6; Range: 0.0-3.6; Abnormal: Above high normal; Units: NG/ML; Status: F Test: MB/CK RELATIVE INDEX; Value: 3.78; Range: < OR =4; Status: F Test Note: ; DIAGNOSIS CRITERIA MMB ng/ml Relative Index (RI) NON-AMI < or = 5 N/A [place] > 5 < or = 4 AMI > 5 > 4 Lab Order: TROPONIN; [facility] 07/14/16 13:58 Test: TROPONIN I; Value: 4.09; Range: < 0.10; Abnormal: Critical Delta High; Units: NG/ML; Status: F Test Note: ; Troponin I Reference Interval for [employer]: 99th Percentile= 0.00-0.045 ng/ml Risk Stratification: <= 0.10 ng/ml Decreased Risk for Adverse Clinical Events. 0.10-1.50 ng/ml Increased Risk for Adverse Clinical Events. Evaluation of additional criterion and/or repeat testing in 2-6 hours is suggested to rule out myocardial damage. >= 1.50 ng/ml Indicative of Myocardial Injury. Lab Order: TROPONIN; [facility] 07/14/16 20:44 Test: TROPONIN I; Value: 2.49; Range: < 0.10; Abnormal: Critical Delta High; Units: NG/ML; Status: F Test Note: ; Troponin I Reference Interval for [employer] [place]: 99th Percentile= 0.00-0.045 ng/ml Risk Stratification: <= 0.10 ng/ml Decreased Risk for Adverse Clinical Events. 0.10-1.50 ng/ml Increased Risk for Adverse Clinical Events. Evaluation of additional criterion and/or repeat testing in 2-6 hours is suggested to rule out myocardial damage. >= 1.50 ng/ml Indicative of Myocardial Injury. Lab Order: CBC WITH DIFFERENTIAL; [facility] 07/15/16 07:28 Test: WHITE BLOOD COUNT; Value: 5.1; Range: 4.0-10.0; Units: K/mm3; Status: F Test: RED BLOOD COUNT; Value: 2.38; Range: 4.30-6.10; Abnormal: Below low normal; Units: M/mm3; Status: F Test: HEMOGLOBIN; Value: 7.2; Range: 14.0-18.0; Abnormal: Below low normal; Units: g/dl; Status: F Test: HEMATOCRIT; Value: 20.9; Range: 42.0-52.0; Abnormal: Below low normal; Units: %; Status: F Test: MEAN CORPUSCULAR VOLUME; Value: 87.8; Range: 80.0-96.0; Units: fl; Status: F Test: MEAN CORPUSCULAR HEMOGLOBIN; Value: 30.3; Range: 27.0-33.0; Units: pg; Status: F Test: MEAN CORPUSCULAR HGB CONC; Value: 34.6; Range: 32.0-36.5; Units: g/dl; Status: F Test: RED CELL DISTRIBUTION WIDTH; Value: 15.5; Range: 11.5-14.5; Abnormal: Above high normal; Units: %; Status: F Test: PLATELET COUNT, AUTOMATED; Value: 290; Range: 150-450; Units: k/mm3; Status: F Test: NEUTROPHILS %; Value: 86.0; Range: 36.0-66.0; Abnormal: Above high normal; Units: %; Status: F Test: LYMPH %; Value: 8.8; Range: 24.0-44.0; Abnormal: Below low normal; Units: %; Status: F Test: MONO %; Value: 3.8; Range: 0.0-5.0; Units: %; Status: F Test: EOS %; Value: 0.3; Range: 0.0-3.0; Units: %; Status: F Test: BASO %; Value: 0.4; Range: 0.0-1.0; Units: %; Status: F Test: LARGE UNSTAINED CELL %; Value: 0.7; Range: 0.0-4.0; Units: %; Status: F Test: NEUTROPHILS #; Value: 4.4; Range: 1.8-7.7; Units: K/mm3; Status: F Test: LYMPH #; Value: 0.5; Range: 1.5-4.5; Abnormal: Below low normal; Units: K/mm3; Status: F Test: MONO #; Value: 0.2; Range: 0.0-0.8; Units: K/mm3; Status: F Test: EOS #; Value: 0.0; Range: 0.0-0.50; Units: K/mm3; Status: F Test: BASO #; Value: 0.0; Range: 0.0-0.2; Units: K/mm3; Status: F Test: LARGE UNSTAINED CELL #; Value: 0.0; Range: 0.0-0.4; Units: K/mm3; Status: F Lab Order: CARDIAC INJURY PROFILE; SPEC'M 07/15/16 07:28 Test: CPK CREATINE PHOSPHOKINASE; Value: 242; Range: 39-308; Units: U/L; Status: F Test: CK-MB VALUE MASS; Value: 10.6; Range: 0.0-3.6; Abnormal: Above high normal; Units: NG/ML; Status: F Test: MB/CK RELATIVE INDEX; Value: 4.38; Range: < OR =4; Abnormal: Above high normal; Status: F Test Note: ; DIAGNOSIS CRITERIA MMB ng/ml Relative Index (RI) NON-AMI < or = 5 N/A [place] > 5 < or = 4 AMI > 5 > 4 Lab Order: TROPONIN; 07/15/16 07:28 Test: TROPONIN I; Value: 2.23; Range: < 0.10; Abnormal: Above upper panic limits; Units: NG/ML; Status: F Test Note: ; Troponin I Reference Interval for Apprats LOCI: 99th Percentile= 0.00-0.045 ng/ml Risk Stratification: <= 0.10 ng/ml Decreased Risk for Adverse Clinical Events. 0.10-1.50 ng/ml Increased Risk for Adverse Clinical Events. Evaluation of additional criterion and/or repeat testing in 2-6 hours is suggested to rule out myocardial damage. >= 1.50 ng/ml Indicative of Myocardial Injury. Lab Order: Fingerstick Blood Sugar; [facility]07/14/16 20:39 Test: BEDSIDE GLUCOSE; Value: 416; Range: 83-110; Abnormal: Above high normal; Units: MG/DL; Status: F Lab Order: Fingerstick Blood Sugar; [facility]07/14/16 23:10 Test: BEDSIDE GLUCOSE; Value: 411; Range: 83-110; Abnormal: Above high normal; Units: MG/DL; Status: F Lab Order: COMPLETE COMPHRENSIVE METABOLI; 07/15/16 07:28 Test: GLUCOSE, FASTING; Value: 330; Range: 83-110; Abnormal: Above high normal; Units: MG/DL; Status: F Test: BLOOD UREA NITROGEN; Value: 43; Range: 7-18; Abnormal: Above high normal; Units: MG/DL; Status: F Test: CREATININE FOR GFR; Value: 1.54; Range: 0.70-1.30; Abnormal: Above high normal; Units: MG/DL; Status: F Test: GLOMERULAR FILTRATION RATE; Value: 47.1; Range: >42; Status: F Test: SODIUM LEVEL; Value: 122; Range: 136-145; Abnormal: Below low normal; Units: MEQ/L; Status: F Test: POTASSIUM SERUM; Value: 4.7; Range: 3.5-5.1; Units: MEQ/L; Status: F Test: CHLORIDE LEVEL; Value: 88; Range: 98-107; Abnormal: Below low normal; Units: MEQ/L; Status: F Test: CARBON DIOXIDE LEVEL; Value: 21; Range: 21-32; Units: MEQ/L; Status: F Test: ANION GAP; Value: 13; Range: 8-16; Units: MEQ/L; Status: F Test: CALCIUM LEVEL; Value: 8.2; Range: 8.8-10.2; Abnormal: Below low normal; Units: MG/DL; Status: F Test: AST/SGOT; Value: 22; Range: 15-37; Units: U/L; Status: F Test: ALT/SGPT; Value: 27; Range: 12-78; Units: U/L; Status: F Test: ALKALINE PHOSPHATASE; Value: 47; Range: 45-117; Units: U/L; Status: F Test: BILIRUBIN,TOTAL; Value: 0.6; Range: 0.2-1.0; Units: MG/DL; Status: F Test: TOTAL PROTEIN; Value: 6.3; Range: 6.4-8.2; Abnormal: Below low normal; Units: GM/DL; Status: F Test: ALBUMIN; Value: 3.0; Range: 3.2-5.2; Abnormal: Below low normal; Units: GM/DL; Status: F Test: ALBUMIN/GLOBULIN RATIO; Value: 0.91; Range: 1.00-1.93; Abnormal: Below low normal; Status: F Test Note: ; Units are mL/min/1.73 m2 Chronic Kidney Disease Staging per NKF: Stage I & II GFR >=60 Normal to Mildly Decreased Stage III GFR 30-59 Moderately Decreased Stage IV GFR 15-29 Severely Decreased Stage V GFR <15 Very Little GFR Left ESRD GFR <15 on DOWEL INSERTING MACHINE OPERATOR Lab Order: MAGNESIUM LEVEL; SPEC'M 07/15/16 07:28 Test: MAGNESIUM LEVEL; Value: 1.8; Range: 1.8-2.4; Units: MG/DL; Status: F Lab Order: Fingerstick Blood Sugar; SPEC'07/15/16 07:20 Test: BEDSIDE GLUCOSE; Value: 371; Range: 83-110; Abnormal: Above high normal; Units: MG/DL; Status: F Lab Order: Fingerstick Blood Sugar; SPEC'07/15/16 12:04 Test: BEDSIDE GLUCOSE; Value: 428; Range: 83-110; Abnormal: Above high normal; Units: MG/DL; Status: F Lab Order: Fingerstick Blood Sugar; SPEC'07/15/16 14:53 Test: BEDSIDE GLUCOSE; Value: 438; Range: 83-110; Abnormal: Above high normal; Units: MG/DL; Status: F Lab Order: Fingerstick Blood Sugar; SPEC'07/15/16 15:44 Test: BEDSIDE GLUCOSE; Value: 412; Range: 83-110; Abnormal: Above high normal; Units: MG/DL; Status: F Radiology Order: EKG-ADULT Test: EKG-ADULT REASON FOR EXAMINATION: sob; Stationary ECG Study; [facility] - ED; ; Test Date: 2016-07-14; Pat Name: TAMIA AUGUSTIN Department:; Room: -; Gender: M Data Conversion Developer: dm; : 1940 Requested By: Irene Hebert; Order Number: [id number] Reading MD: Albert Viramontes; Measurements; Intervals [place]; Rate: 81 P: 16; UT: 219 QRS: -7; QRSD: 98 T: 33; QT: 353; QTc: 412; Interpretive Statements; SINUS RHYTHM WITH FIRST DEGREE AV BLOCK; NONSPECIFIC ST T-WAVE ABNORMALITY; SIMILAR TO 06/16/16; Electronically Signed On 07-14-2016 19:13:02 EST by Albert Viramontes; Radiology Order: Chest, 1 View Test: Chest, 1 View REASON FOR EXAMINATION: sob; Portable chest x-ray: Sitting AP view.; ; History: Shortness of breath.; ; Comparison study: June 16, 2016.; ; Findings: There is a extensive perihilar infiltrate pattern in the left lung.; Heart is mildly prominent unchanged. No pleural effusion is seen. There is; slight cephalization of the pulmonary vasculature.; ; Impression:; ; Fairly dense and extensive left perihilar infiltrate, probable pneumonia.; Asymmetric pulmonary edema is considered a less likely possibility.; ; ; Signed by; Abe Lee MD 07/14/2016 10:24 A; Outcome: 12:32 Decision to Hospitalize by Provider. 07/15 16:37 Patient left the ED. deg Signatures: Dispatcher [employer] EDMS Irene Hebert MD MD ml Cinthya Driver, Fuselage Framer Unit deg Elyse Garrison, RN RN kpj Allie Raymond, Reg Reg gb Jonathan Zambrano, Reg Reg lg Libia Dalton kt1 Braxton Wayne, Fuselage Framer Unit ml3 Mary Benton,RN RN jo3 Lucien Haines, CAB DRIVER CAB DRIVER kb5 Chalo Stevensa, CAB DRIVER CAB DRIVER ar3 Zenobia Esposito RN RN hs1 Lorena Joseph, CAB DRIVER CAB DRIVER ct3 Lucille Purcell dem1 Vidhi NicholsRN RN aa3 Sujey Lindsey,RN RN randal2 Sivan Mas,RN RN kc3 Calli Garcia2 Chart Complete MTDD
--- NOTE | 2016-07-18 15:30 | EDDOCDS ---
Physician Documentation [facility] Name: Lawson Zambrano Age: 75 yrs Sex: Male : 1940 Arrival Date: 07/14/2016 Time: 09:03 Bed Admit Hold Private MD: Disposition: 07/14 12:32 Critical Care:. ml Disposition: 07/14/16 12:32 Hospitalization ordered by Bharat Muse for Inpatient Admission. Preliminary diagnosis are Chronic obstructive pulmonary disease with (acute) exacerbation, Pneumonia, unspecified organism, Acute systolic (congestive) heart failure, Anemia, unspecified, Hypo-osmolality and hyponatremia, Non-ST elevation (NSTEMI) myocardial infarction. - Bed requested for M ICU. - Status is Inpatient Admission. deg - Condition is Stable. - Problem is new. - Symptoms are unchanged. Historical: - Allergies: PENICILLINS (Hives); - Home Meds: 1. losartan-hydrochlorothiazide 100-25 mg oral tab 0.5 tab once daily 2. aspirin 81 mg Oral tab 2 tabs once daily (Last dose: 07/13/2016) 3. atenolol 50 mg Oral tab 1 tab once daily (Last dose: 07/13/2016) 4. atorvastatin 20 mg oral tab 1 tab once daily (Last dose: 07/13/2016) 5. ranitidine HCl 150 mg Oral tab 1 tab once daily (Last dose: 07/13/2016) 6. Vitamin D2 1,000 unit oral cap (Last dose: 07/13/2016) 7. metformin 500 mg Oral tab 0.5 tab 2 times per day (Last dose: 07/13/2016) 8. finasteride 5 mg oral tab 1 tab once daily 9. Advair Diskus 250-50 mcg/dose Inhl dsdv 1 puff 2 times per day (Last dose: 07/13/2016) - PMHx: CAD; Diabetes - IDDM: controlled; Emphysema; GERD; Hypercholesterolemia; Hypertension; Nicotine Abuse; Polydispsia; Stroke; - PSHx: Appendectomy; - Social history: Smoking status: No barriers to communication noted, The patient speaks fluent Bulgarian, Speaks appropriately for age, Smoking status: Patient uses tobacco products, heavy tobacco smoker. - Family history: Not pertinent. - : The pt / caregiver states he / she is not on anticoagulants. Home medication list is obtained from family members. - Exposure Risk Screening:: None identified. Vital Signs: 09:12 BP 134 / 86 (auto/); jo3 09:13 Pulse 80 MON; Pulse Ox 93% ; jo3 09:14 BP 134 / 86; Pulse 80; Resp 20; Temp 98.5(TE); Pulse Ox 91% 8% ; Pain 0/10; nb2 09:27 BP 128 / 60 (auto/); jo3 09:27 Pulse 80 MON; Pulse Ox 94% ; jo3 09:28 Weight 88 kg / 194.01 lbs; Height 5 ft. 7 in. (170.18 cm); dem1 09:42 BP 115 / 57 (auto/); jo3 09:42 Pulse 82 MON; Pulse Ox 83% ; jo3 09:57 BP 127 / 60 (auto/); jo3 09:57 Pulse 86 MON; Pulse Ox 91% ; jo3 10:12 BP 120 / 55 (auto/); jo3 10:12 Pulse 86 MON; Pulse Ox 93% ; jo3 10:27 BP 121 / 58 (auto/); jo3 10:27 Pulse 84 MON; Pulse Ox 95% ; jo3 10:42 BP 125 / 63 (auto/); jo3 10:42 Pulse 86 MON; Pulse Ox 92% ; jo3 10:56 Pulse 86 MON; Pulse Ox 93% ; jo3 10:57 BP 114 / 55 (auto/); jo3 11:12 BP 122 / 62 (auto/); jo3 11:12 Pulse 82 MON; Pulse Ox 89% ; jo3 11:27 BP 116 / 63 (auto/); jo3 11:27 Pulse 78 MON; Pulse Ox 90% ; jo3 11:42 BP 110 / 59 (auto/); jo3 11:42 Pulse 76 MON; Pulse Ox 90% ; jo3 11:57 BP 113 / 62 (auto/); jo3 11:57 Pulse 74 MON; Pulse Ox 90% ; jo3 12:12 BP 115 / 63 (auto/); jo3 12:12 Pulse 72 MON; Pulse Ox 92% ; jo3 12:26 Pulse 74 MON; Pulse Ox 92% ; jo3 12:27 BP 124 / 66 (auto/); jo3 12:42 BP 119 / 68 (auto/); jo3 12:42 Pulse 76 MON; Pulse Ox 93% ; jo3 12:57 BP 128 / 68 (auto/); jo3 12:57 Pulse 72 MON; Pulse Ox 94% ; jo3 13:12 BP 126 / 70 (auto/); jo3 13:12 Pulse 72 MON; Pulse Ox 94% ; jo3 13:27 BP 120 / 65 (auto/); jo3 13:27 Pulse 72 MON; Pulse Ox 93% ; jo3 13:42 BP 124 / 65 (auto/); jo3 13:42 Pulse 74 MON; Pulse Ox 96% ; jo3 14:12 BP 124 / 62 (auto/); jo3 14:12 Pulse 76 MON; jo3 14:27 BP 126 / 68 (auto/); jo3 14:27 Pulse 72 MON; Pulse Ox 95% ; jo3 14:42 BP 115 / 60 (auto/); jo3 14:42 Pulse 74 MON; Pulse Ox 95% ; jo3 14:57 BP 118 / 63 (auto/); jo3 14:57 Pulse 76 MON; Pulse Ox 94% ; jo3 15:27 BP 132 / 70 (auto/); jo3 15:27 Pulse 80 MON; Pulse Ox 93% ; jo3 15:42 BP 136 / 67 (auto/); jo3 15:42 Pulse 84 MON; Pulse Ox 96% ; jo3 15:57 BP 135 / 71 (auto/); jo3 15:57 Pulse 78 MON; Pulse Ox 94% ; jo3 16:12 BP 134 / 76 (auto/); jo3 16:12 Pulse 82 MON; Pulse Ox 94% ; jo3 16:27 BP 137 / 72 (auto/); jo3 16:27 Pulse 78 MON; Pulse Ox 92% ; jo3 16:42 BP 138 / 78 (auto/); jo3 16:42 Pulse 88 MON; jo3 16:57 BP 131 / 59 (auto/); jo3 16:57 Pulse 84 MON; Pulse Ox 96% ; jo3 17:12 BP 132 / 67 (auto/); jo3 17:12 Pulse 82 MON; Pulse Ox 96% ; jo3 17:27 BP 129 / 61 (auto/); jo3 17:27 Pulse 80 MON; Pulse Ox 97% ; jo3 17:42 BP 117 / 56 (auto/); jo3 17:42 Pulse 80 MON; Pulse Ox 96% ; jo3 17:57 BP 137 / 65 (auto/); jo3 17:57 Pulse 80 MON; Pulse Ox 96% ; jo3 18:12 BP 141 / 69 (auto/); jo3 18:12 Pulse 80 MON; Pulse Ox 96% ; jo3 18:27 BP 140 / 68 (auto/); jo3 18:27 Pulse 82 MON; Pulse Ox 94% ; jo3 18:42 BP 137 / 68 (auto/); jo3 18:42 Pulse 82 MON; Pulse Ox 97% ; jo3 09:28 Body Mass Index 30.39 (88.00 kg, 170.18 cm) dem1 MDM: 09:26 IV Saline Lock ordered. ml 09:26 Green Building Materials Distributor/Pulse Ox/q 15 min VS ordered. ml 09:26 Rhythm Strip to chart ordered. ml 09:26 Albuterol 5 mg Nebulizer once ordered. ml 09:26 Albuterol-Ipratropium 3 ml Inhalation once ordered. ml 09:26 Call Respiratory ordered. ml 09:26 -Blood Culture (Adults Only), peripheral from different site, or from device/port/PICC ml etc. if present ordered. 09:26 Call Respiratory ordered. ml 09:27 ECG WITH READING ER PHYS+CARDIAG ordered. EDMS 09:27 CBC with Diff Ordered. EDMS 09:27 MED Profile Ordered. EDMS 09:27 BNP Ordered. EDMS 09:27 CIP Ordered. EDMS 09:27 Troponin Ordered. EDMS 09:27 -Arterial Blood Gas Ordered. EDMS 09:27 Liver Profile Ordered. EDMS 09:27 -Blood Culture Ordered. EDMS 09:27 -Influenza A&B Rapid Antigen - Nose Ordered. EDMS 09:33 Chest, 1 View Ordered. EDMS 09:34 Call Respiratory complete. ar3 09:34 Call Respiratory complete. ar3 09:36 -Blood Culture (Adults Only), peripheral from different site, or from device/port/PICC ar3 etc. if present complete. 09:38 BLOOD CULTURES Ordered. EDMS 10:21 Financial registration complete. lg 10:22 CBC with Diff Reviewed. ml 10:22 BNP Reviewed. ml 10:22 -Arterial Blood Gas Reviewed. ml 10:22 -Influenza A&B Rapid Antigen - Nose Reviewed. ml 10:25 MED Profile Reviewed. ml 10:25 CIP Reviewed. ml 10:25 Troponin Reviewed. ml 10:25 Liver Profile Reviewed. ml 10:27 Aspirin Chewable Tablet 324 mg PO once ordered. ml 10:28 Furosemide 20 mg IVP once ordered. ml 10:28 Moxifloxacin 400 mg IV at 400 mg/hr once over 60 mins ordered. ml 10:45 Type & Screen Ordered. EDMS 10:46 PT/INR Ordered. EDMS 10:46 PTT Ordered. EDMS 10:57 BED REQUEST+ADM ordered. EDMS 10:59 [facility] Payment Agreement was scanned into [employer] and attached to record. lg 13:22 Admission / Observation Status ordered. EDMS 13:22 ECHOCARD,DOPPLER/COLOR FLOW ordered. EDMS 13:22 CONSISTENT CARBOHYDRATES ordered. EDMS 13:23 CARDIAC INJURY PROFILE Ordered. EDMS 13:23 CARDIAC INJURY PROFILE Ordered. EDMS 13:23 TROPONIN Ordered. EDMS 13:23 TROPONIN Ordered. EDMS 16:16 Atenolol 50 mg PO once ordered. jo3 16:16 Finasteride (Proscar) 5 mg PO once ordered. jo3 16:16 Nicotine Patch 14 mg/24 hr 14 mg Transdermal once ordered. jo3 16:16 Losartan 50 mg PO once ordered. jo3 17:37 Pantoprazole 40 mg PO once ordered. jo3 17:37 Solu-MEDROL 60 mg IVP once ordered. jo3 19:05 Acetaminophen Tablet 1000 mg PO once ordered. jo3 19:31 CBC WITH DIFFERENTIAL Ordered. EDMS 19:31 CARDIAC INJURY PROFILE Ordered. EDMS 19:32 TROPONIN Ordered. EDMS 20:47 Fingerstick Blood Sugar Ordered. EDMS 01/ 03:05 COMPLETE COMPHRENSIVE METABOLI Ordered. EDMS 03:05 MAGNESIUM LEVEL Ordered. EDMS 04:40 ELECTROCARDIOGRAM ADULT ordered. EDMS 07:42 Fingerstick Blood Sugar Ordered. EDMS 10:59 COMPLETE BLOOD COUNT Ordered. EDMS 11:00 PACKED CELLS Ordered. EDMS 12:15 Fingerstick Blood Sugar Ordered. EDMS 13:00 T-Sheet-- Draft Copy was scanned into [employer] and attached to record. gb 14:04 BLOOD CULTURES Ordered. EDMS 15:01 Fingerstick Blood Sugar Ordered. EDMS 15:52 Atropine 1 mg IVP once ordered. br1 15:52 ED course: Called to respond to patient's bradycardia and decreased responsive. Patient br1 DNR/DNI. Heart rate 48. Atropine 1 mg IV given with good effect, patient now responsive. Dr. Franks has arrived to assume care of rapid response and patient is being taken to ICU.. 15:53 Fingerstick Blood Sugar Ordered. EDMS 07/16 13:54 ECG/EKG was scanned into [employer] and attached to record. gb 13:54 Consents was scanned into [employer] and attached to record. gb 13:55 Radiology Report was scanned into [employer] and attached to record. gb 13:55 Other: LIVING WILL was scanned into [employer] and attached to record. gb 13:55 Other: MOLST was scanned into [employer] and attached to record. gb Point of Care Testing: Blood Glucose: 07/15 15:46 Blood Glucose: 412 mg/dL; kc3 Ranges: Administered Medications: 07/14 09:20 Drug: Albuterol 5 mg [albuterol sulfate 2.5 mg/0.5 mL solution for nebulization (1 mL)] kt1 Route: Nebulizer; 09:43 Drug: Albuterol-Ipratropium 3 ml [ipratropium-albuterol 0.5 mg-3 mg(2.5 mg base)/3 mL kt1 nebulization soln (3 mL)] Route: Inhalation; 10:32 Drug: Aspirin 324 mg [aspirin 81 mg chewable tablet (4 tabs)] Route: PO; jo3 10:34 Drug: Furosemide 20 mg [furosemide 10 mg/mL injection solution (2 mL)] Route: IVP; jo3 Site: left hand; 10:38 Drug: Moxifloxacin 400 mg [moxifloxacin 400 mg/250 mL-sodium chloride(iso) intravenous jo3 piggyback] Route: IV; Rate: 400 mg/hr; Infused Over: 60 mins; Site: left hand; 11:46 Follow up: IV Status: Completed infusion jo3 16:20 Drug: Atenolol 50 mg [atenolol 25 mg tablet (2 tabs)] Route: PO; jo3 16:20 Drug: Finasteride (Proscar) 5 mg Route: PO; jo3 16:20 Drug: Nicotine Patch 14 mg/24 hr 14 mg Route: Transdermal; Site: right upper arm; jo3 16:20 Drug: Losartan 50 mg [losartan 25 mg tablet (2 tabs)] Route: PO; jo3 16:55 Drug: Pantoprazole 40 mg [pantoprazole 40 mg tablet,delayed release (1 tabs)] Route: PO;jo3 16:55 Drug: Solu-MEDROL 60 mg [Solu-Medrol 500 mg intravenous solution (60 mg)] Route: IVP; 3 Site: right antecubital; 18:55 Drug: Acetaminophen 1000 mg [acetaminophen 500 mg tablet (2 tabs)] Route: PO; jo3 07/15 13:45 Drug: Atropine 1 mg [atropine 0.4 mg/mL injection solution (2.5 mL)] Route: IVP; Site: hs1 right forearm; Critical Care Time: 07/14 12:32 Critical care time: Bedside Care: 100 minutes, Consultation: 20 minutes, Family ml Intervention: 10 minutes. Total time: 130 minutes Signatures: Dispatcher [employer] EDIrene Jaime MD MD ml Cinthya Driver, Industrial Boilermaker Unit deg Barnhardt, Allie, Reg Reg gb Ganter, LoriLee, Reg Reg lg Tone, Braxton, Industrial Boilermaker Unit ml3 Mary Benton,RN RN jo3 Alphonso Keane MD MD br1 Irena Stevens, WATCHMAKER APPRENTICE WATCHMAKER APPRENTICE ar3 Dank, Jessica Oh, RN RN sls2 Libia Dalton kt1 Zenobia Esposito RN hs1 The chart was reviewed and I authenticate all verbal orders and agree with the evaluation and treatment provided.Corrections: (The following items were deleted from the chart) 13:36 13:23 BLOOD CULTURES ordered. EDMS EDMS 07/15 03:04 07/14 19:31 COMPLETE COMPHRENSIVE METABOLI ordered. EDMS EDMS 07/15 03:04 00:03 MAGNESIUM LEVEL ordered. EDMS EDMS 11:00 TYPE & SCREEN ordered. EDMS EDMS Attachments: 07/14 10:59 [facility] Payment Agreement lg 07/16 13:54 ECG/EKG gb Chart Complete MTDD
[2016-07-18] MEDS ORDERED: LEVEMIR (INSULIN DETEMIR) 1 UNITS/0.01ML SC SCH (21:00)
== END 2016-07-18 13:56 | disposition short-term general hospital (02) | DRG 280 ==
LOC: M ED 09:03 → M ED INP 13:02 → M ICU 07-15 16:26
PROVIDERS: ADMIT Family Medicine; ATTEND Family Medicine
PROC: 30253N1 (ICD-10-PCS; principal; 2016-07-15)
DX: I21.4 Non-ST elevation (NSTEMI) myocardial infarction (principal); J18.9 Pneumonia, unspecified organism; J96.01 Acute respiratory failure with hypoxia; J96.02 Acute respiratory failure with hypercapnia; J81.0 Acute pulmonary edema; E22.2 Syndrome of inappropriate secretion of antidiuretic hormone; D62 Acute posthemorrhagic anemia; N17.9 Acute kidney failure, unspecified; E87.4 Mixed disorder of acid-base balance; Z66 Do not resuscitate; J44.9 Chronic obstructive pulmonary disease, unspecified; E11.65 Type 2 diabetes mellitus with hyperglycemia; K21.9 Gastro-esophageal reflux disease without esophagitis; E66.9 Obesity, unspecified; I25.10 Atherosclerotic heart disease of native coronary artery without angina pectoris; I50.9 Heart failure, unspecified; E78.5 Hyperlipidemia, unspecified; I11.0 Hypertensive heart disease with heart failure; F17.210 Nicotine dependence, cigarettes, uncomplicated; Z79.82 Long term (current) use of aspirin; Z79.84 Long term (current) use of oral hypoglycemic drugs; Z79.899 Other long term (current) drug therapy; Z79.4 Long term (current) use of insulin; Z91.19 Patient's noncompliance with other medical treatment and regimen

== ENCOUNTER 2016-07-25 11:42 | Inpatient (IN) | payer MEDICARE, MEDICAID ==
[~2016-07-25] VITALS: Ht 167.6 cm; Wt 92.0 kg
[~2016-07-25 11:42] MED LIST changes: +ADV250INH INH; +ASPI81CH3 PO; +DRIS50002 PO; +FINA5TAB2 PO; +METF500T PO; -NICOTINE 14 MG/24 HR TRANSDERMAL TD SCH; +SPIR1CAP INH; +VITA100066 PO
[2016-07-25 12:25] LABS: BASO % 0.6 % (0.0-1.0); EOS # 0.1 K/mm3 (0.0-0.50); EOS % 1.8 % (0.0-3.0); LARGE UNSTAINED CELL # 0.1 K/mm3 (0.0-0.4); LARGE UNSTAINED CELL % 3.3 % (0.0-4.0); LYMPH # 0.8 K/mm3 (1.5-4.5); LYMPH % 19.5 % (24.0-44.0); MEAN CORPUSCULAR HEMOGLOBIN 31.2 pg (27.0-33.0); MEAN CORPUSCULAR HGB CONC 35.1 g/dl (32.0-36.5); MEAN CORPUSCULAR VOLUME 88.8 fl (80.0-96.0); MONO # 0.3 K/mm3 (0.0-0.8); MONO % 6.2 % (0.0-5.0); NEUTROPHILS # 2.9 K/mm3 (1.8-7.7); NEUTROPHILS % 68.5 % (36.0-66.0); PLATELET COUNT, AUTOMATED 195 k/mm3 (150-450); RED CELL DISTRIBUTION WIDTH 14.7 % (11.5-14.5); WHITE BLOOD COUNT 4.2 K/mm3 (4.0-10.0)
[2016-07-25 12:58] LABS: ALBUMIN 3.1 GM/DL (3.2-5.2); BILIRUBIN,DIRECT 0.2 MG/DL (0.0-0.2); BILIRUBIN,TOTAL 0.7 MG/DL (0.2-1.0); CALCIUM LEVEL 8.2 MG/DL (8.8-10.2); CREATININE FOR GFR 1.43 MG/DL (0.70-1.30); GLOMERULAR FILTRATION RATE 51.3 (>42); POTASSIUM SERUM 4.8 MEQ/L (3.5-5.1); TOTAL PROTEIN 6.2 GM/DL (6.4-8.2)
--- NOTE | 2016-07-25 14:34 | REP ---
CHEST X-RAY: Two views. HISTORY: Cough. Comparison chest x-rays from July 17, 2016. FINDINGS: There is a patchy area of increased density in the left base along the left heart border on today's chest x-ray. This may be atelectasis or early infiltrate. Pleural angles are sharp. Lung espinoza are otherwise clear. Heart is not enlarged. IMPRESSION: Patchy somewhat linear density left base. Atelectasis versus infiltrate. There is slight blunting of one of the posterior pleural angles on lateral film as well. Signed by Abe Lee MD 07/25/2016 03:10 P
--- NOTE | 2016-07-25 14:34 | REP ---
PELVIS RIGHT HIP: Three views. HISTORY: Trauma. FINDINGS: AP view of the pelvis and AP and frog-leg views of the right hip are obtained. No pelvic or hip fracture is seen. No sacral fracture is noted. There is fairly prominent vascular calcification. IMPRESSION: No fracture seen. Signed by Abe Lee MD 07/25/2016 03:10 P
[2016-07-25] MEDS ORDERED: METF500T PO ×2 (14:43)
[2016-07-25] MEDS ORDERED: VITAE20CA PO (14:46)
[2016-07-25] MEDS ORDERED: AMIO400T PO (14:46)
[2016-07-25] MEDS ORDERED: NITR4TASL SL (14:46)
[2016-07-25] MEDS ORDERED: FERR325T PO (14:46)
--- NOTE | 2016-07-25 15:39 | REP ---
CT HEAD WITHOUT CONTRAST: HISTORY: Trauma. COMPARISON: 06/16/2016. Areas of decreased attentuation are present in the right basal ganglia. These represent old lacunar infarctions. Areas of decreased attentuation are present in the periventricular and subcortical white matter. This represents small vessel ischemic disease. There is no intraparenchymal hemorrhage, mass, or midline shift. The ventricular system and cortical sulci are dilated consistent with moderate volume loss. There is no extracerebral collection. Mucosal thickening is present in the left maxillary sinus. IMPRESSION: 1. 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 2. Small vessel ischemic disease. 3. Moderate volume loss. Signed by Cam Jones MD 07/25/2016 03:42 P
[2016-07-25] MEDS ORDERED: DEXTROSE 50% 50 ML SYRINGE IV PRN (16:15)
[2016-07-25] MEDS ORDERED: NITROGLYCERIN 0.4 MG SUBL TABLET SL PRN (16:15)
[2016-07-25] MEDS ORDERED: GLUCOSE 4 GM CHEW TABLET PO PRN (16:15)
[2016-07-25] MEDS ORDERED: GLUCAGON FOR INJ 1 MG VIAL (J1610) SC PRN (16:15)
[2016-07-25] MEDS ORDERED: ALBUTEROL 90 MCG/ACT 8GM HFA INHALER INH PRN (16:15)
[2016-07-25 16:32] LABS: CREATININE FOR GFR 1.34 MG/DL (0.70-1.30); GLOMERULAR FILTRATION RATE 55.3 (>42)
[2016-07-25 16:48] LABS: POTASSIUM SERUM 5.2 MEQ/L (3.5-5.1)
--- NOTE | 2016-07-25 18:03 | HPE ---
DATE OF ADMISSION: 07/25/2016 PRIMARY CARE PROVIDER: Dr. Muse REASON FOR ADMISSION: Syncopal episode. HISTORY OF PRESENT ILLNESS: The patient is a 75-year-old male who presented to the emergency room with his sister and [id number] after he had a syncopal episodes earlier this morning. He stated that he has been feeling dizzy even in a seated position. They called the ambulance. He was found to have a low blood pressure and bradycardia and he was brought into the emergency room. The patient had an myocardial infarction (KS) two weeks ago. He was transferred down to [facility] where they stated that he would need a coronary artery bypass graft (CABG) and he refused. Around that same time, he was also supposed to get a pacemaker but the procedure was never done. He stated that he has been feeling this dizziness and had multiple syncopal episodes over the past two months. He normally sees Dr. Louis. 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 On admission, blood pressure initially was 93/57. However, by the time I saw the patient, blood pressure systolically was 136. His heart rate was in the 40s. EKG showed sinus lurdes with a first-degree block. The patient denied any chest pain. Denied any shortness of breath at this time. Denied any fevers or chills. He only was complaining of dizziness and lightheadedness. The patient was admitted by the hospitalist for the family practice group. REVIEW OF SYSTEMS: A 12-point review of systems was obtained, all which was negative except for those mentioned above. PAST MEDICAL HISTORY: Significant for insulin-dependent diabetes, coronary artery disease, history of atrial fibrillation, emphysema, gastroesophageal reflux disease (GERD), tobacco abuse, hypertension, hyperlipidemia, history of stroke. The patient is normally on oxygen two liters at night. PAST SURGICAL HISTORY: Positive for appendectomy. SOCIAL HISTORY: The patient lives with his son and [id number]. He smoked three packs a day for the past 60 years, recently quit two weeks ago. He used to drink heavily but quit a few years ago. FAMILY HISTORY: Noncontributory. ALLERGIES: PENICILLIN reaction hives. HOME MEDICATIONS: Include: - Ventolin two puffs inhaled every four hours as needed for shortness of breath - amiodarone 400 mg by mouth daily - aspirin 881 mg by mouth daily - atenolol 50 mg by mouth daily - atorvastatin 20 mg by mouth at bedtime - vitamin D 1000 units by mouth daily - Nexium 40 mg by mouth daily - fenofibrate 160 mg by mouth at bedtime - iron sulfate 325 mg by mouth twice a day - finasteride 5 mg by mouth daily - insulin Levemir 62 units at bedtime and 42 units in the morning - losartan HCTZ 100/25 one tablet by mouth daily - metformin 500 mg by mouth daily and 250 at night - nitroglycerin 0.4 mg sublingually as needed for chest pain - ranitidine one tablet by mouth twice a day - vitamin D 50,000 units weekly - Onglyza 5 mg daily - vitamin E 200 units by mouth daily PHYSICAL EXAMINATION: VITAL SIGNS: Blood pressure on admission 93/53, pulse 46, respiratory rate 20, temperature 96.6, pulse oximetry 97% on two liters nasal cannula. HEENT: Pupils are equal, round and reactive to light and accommodation. NECK: Supple. No jugular venous distention (JVD). LUNGS: Clear to auscultation bilaterally. ABDOMEN: Soft, nontender, nondistended. CARDIAC: Bradycardic. No murmurs appreciated. EXTREMITIES: No clubbing, cyanosis or edema. SKIN: No obvious lesions or rashes. LABORATORY FINDINGS: WBC 4.2, hemoglobin 9.8, hematocrit 27.8, platelets 195. Sodium 123, potassium 4.8, chloride 89, BUN 23, creatinine 1.4, fasting glucose 120, lactic acid is 2. IMAGING STUDIES: The patient had a hip x-ray which showed no fractures. Chest x-ray showed patchy somewhat linear density, atelectasis versus infiltrate. Head CT showed small vessel ischemic disease and moderate volume loss. ASSESSMENT AND PLAN: 1. Syncopal episode. The patient had a syncopal episode this morning. [id number]-[id number] who witnessed the episode states the patient did not fall or hit his head. CT scan was done in the emergency room anyway and it was negative. Hip x-ray was also done and was negative for any fractures. Syncopal episode may have been secondary to bradycardia. The patient has been bradycardic on telemetry with a heart rate in the 40s to 30s. He is currently complaining of dizziness. Dr. Louis was consulted from the emergency room. He recommended to hold his amiodarone and atenolol. However, since the patient has been discharged from the group due to noncompliance, he will not be seen by them in the hospital. We will admit the patient to telemetry and monitor on telemetry overnight. Hold blood pressure medications and beta blockers. 2. Hyponatremia, may have been secondary to diuretics. We will hold at this time. Repeat sodium went up to 125 from 123 in four hours. We will continue to check basic metabolic profiles (BMPs) every four hours. 3. Coronary artery disease. The patient was recently evaluated at [facility] two weeks ago after he had a myocardial infarction (KS). He was supposed to have a coronary artery bypass graft (CABG). However, the patient refused stating that he does not want to any open heart surgery. We will continue to monitor. The patient currently denies any chest pain. 4. History of emphysema. The patient normally uses two liters of oxygen at night. We will continue in the hospital. 5. History of hyperlipidemia. Continue atorvastatin. 6. History of gastroesophageal reflux disease. Continue Nexium and ranitidine. 7. History of diabetes, on insulin. We will continue Levemir 60 units at night, 40 units in the morning, and insulin sliding scale with a consistent-carbohydrate diet. We will hold the patient's oral medications at this time. 8. History of stroke. No obvious residual deficits. 9. History of anemia. The patient was supposed to have a colonoscopy at [facility] for a gastroenterology (GI) workup. However, after completing the preparation, the patient ate before the procedure and the procedure had to be cancelled. We will continue to monitor his hemoglobin and hematocrit. 10. Acute kidney injury. The patient's baseline is around 1.3. We will continue to monitor urine. Electrolytes were sent in the emergency room. 11. Deep vein thrombosis (DVT) prophylaxis. Lovenox subcutaneously while in bed. The patient will be seen by the family practice group in the morning.
--- NOTE | 2016-07-25 20:15 | EDDOCDS ---
Physician Documentation [facility], [place] Name: Lawson Zambrano Age: 75 yrs Sex: Male : 1940 Arrival Date: 07/25/2016 Time: 11:42 Bed 9 Private MD: Disposition: 07/25/16 15:05 Hospitalization ordered by Gt Jarquin for Inpatient Admission. Preliminary diagnosis are Bradycardia, unspecified, Hypo-osmolality and hyponatremia. - Bed requested for PCU. - Status is Inpatient Admission. cf2 - Condition is Stable. - Problem is new. - Symptoms are unchanged. Historical: - Allergies: PENICILLINS (Hives); - Home Meds: 1. amiodarone 400 mg Oral tab 1 tab once daily 2. ferrous sulfate 325 mg (65 mg iron) Oral tab twice a day 3. levofloxacin 750 mg Oral tab 1 tab once daily - finished 07/19/2016 4. Nitrostat 0.4 mg SL subl 1 tab every 5 minutes 5. Albuterol Inhl 2 puffs every 4 hours as needed 6. aspirin 81 mg Oral tab 1 tab once daily 7. atenolol 50 mg Oral tab 1 tab once daily 8. atorvastatin 20 mg oral tab 1 tab once daily 9. esomeprazole magnesium 40 mg Oral cpDR 1 cap once daily 10. fenofibrate 160 mg oral tab 1 tab nightly 11. finasteride 5 mg oral tab 1 tab once daily 12. Advair Diskus 250-50 mcg/dose Inhl dsdv 1 puff 2 times per day 13. insulin units/ml - 40 ml daily 14. insulin detemir 100 units/ml 60 units nightly 15. losartan-hydrochlorothiazide 100-25 mg oral tab 1 tab once daily 16. metformin 500 mg Oral tab 0.5 tab 2 times per day 17. Onglyza 5 mg oral tab 1 tab once daily 18. ranitidine HCl 150 mg Oral tab 1 tab 2 times per day 19. Vitamin D Oral 50,000 unit weekly 20. vitamin E 200 unit Oral tab daily - PMHx: CAD; Diabetes - IDDM: controlled; Emphysema; GERD; Hypercholesterolemia; Hypertension; Nicotine Abuse; Polydispsia; Stroke; - PSHx: Appendectomy; - Social history: Smoking status: Patient states former smoker of tobacco. No barriers to communication noted, The patient speaks fluent Italian. - Family history: Not pertinent. - : The pt / caregiver states he / she is not on anticoagulants. Home medication list is obtained from a discharge med list. - Exposure Risk Screening:: None identified. Vital Signs: 07/25 11:51 BP 102 / 52; Pulse 56; Resp 20; Temp 96.7(TE); Pulse Ox 98% on 15% Non-rebreather mask; rn1 Weight 91.63 kg / 202.01 lbs; Height 5 ft. 6 in. (167.64 cm); Pain 9/10; 13:16 BP 98 / 56 Supine; Pulse 47; Pulse Ox 97% on R/A; kc3 13:16 BP 94 / 55 Sitting; Pulse 51; Pulse Ox 97% on R/A; kc3 13:16 BP 93 / 53 Standing; Pulse 46; kc3 13:25 Pulse 48 MON; Pulse Ox 97% ; kc3 13:26 BP 116 / 59 (auto/); kc3 13:41 BP 106 / 63 (auto/); kc3 13:41 Pulse 50 MON; Pulse Ox 71% ; kc3 13:56 BP 101 / 58 (auto/); kc3 13:56 Pulse 50 MON; Pulse Ox 98% ; kc3 14:10 Pulse 48 MON; Pulse Ox 96% ; kc3 14:11 BP 118 / 56 (auto/); kc3 14:26 BP 109 / 59 (auto/); kc3 14:26 Pulse 48 MON; Pulse Ox 96% ; kc3 14:41 BP 106 / 56 (auto/); kc3 14:41 Pulse 48 MON; Pulse Ox 97% ; kc3 14:56 BP 117 / 57 (auto/); kc3 14:56 Pulse 48 MON; Pulse Ox 98% ; kc3 15:11 BP 136 / 65 (auto/); kc3 15:12 Pulse 48 MON; Pulse Ox 97% ; kc3 15:26 BP 120 / 58 (auto/); kc3 15:26 Pulse 46 MON; Pulse Ox 96% ; kc3 15:40 Pulse 46 MON; Pulse Ox 97% ; kc3 15:41 BP 138 / 63 (auto/); kc3 15:56 BP 129 / 62 (auto/); kc3 15:56 Pulse 46 MON; Pulse Ox 98% ; kc3 16:11 BP 143 / 65 (auto/); kc3 16:11 Pulse 46 MON; Pulse Ox 99% ; kc3 16:26 BP 127 / 60 (auto/); kc3 16:27 Pulse 48 MON; Pulse Ox 98% ; kc3 16:40 Pulse 46 MON; Pulse Ox 99% ; kc3 16:41 BP 105 / 50 (auto/); kc3 16:56 BP 116 / 55 (auto/); kc3 16:56 Pulse 50 MON; Pulse Ox 100% ; kc3 17:10 Pulse 50 MON; Pulse Ox 99% ; kc3 17:11 BP 146 / 68 (auto/); kc3 17:25 Pulse 50 MON; Pulse Ox 99% ; kc3 17:26 BP 152 / 72 (auto/); kc3 17:41 BP 164 / 78 (auto/); kc3 17:42 Pulse 52 MON; Resp 20; Temp 98.1(TE); Pulse Ox 96% ; kc3 11:51 Body Mass Index 32.60 (91.63 kg, 167.64 cm) rn1 13:16 pt reports dizziness kc3 MDM: 11:44 ECG WITH READING ER PHYS+CARDIAG ordered. EDMS 11:59 Electronics Commodity Manager/Pulse Ox/q 15 min VS ordered. sd1 11:59 Accucheck ordered. sd1 11:59 IV Saline Lock ordered. sd1 11:59 Oxygen at 4L/Min NC or Home dosage ordered. sd1 11:59 Rhythm Strip to chart ordered. sd1 11:59 Orthostatic VS ordered. sd1 12:00 CBC with Diff Ordered. EDMS 12:00 Cardiac Injury Profile Ordered. EDMS 12:00 Liver Profile Ordered. EDMS 12:00 MED Profile Ordered. EDMS 12:01 Thyroid Stimulating Hormone Ordered. EDMS 12:01 Troponin Ordered. EDMS 12:19 Fingerstick Blood Sugar Ordered. EDMS 12:29 CBC with Diff Reviewed. sd1 12:29 Fingerstick Blood Sugar Reviewed. sd1 12:30 NS 0.9% 500 ml IV at bolus once ordered. sd1 12:31 -Blood Culture (Adults Only), peripheral from different site, or from device/port/PICC sd1 etc. if present ordered. 12:31 Hip,AP,LAT to include Pelvis Ordered. EDMS 12:31 Chest, 2 View (pa\E\lat) Ordered. EDMS 12:31 Lactic Acid (Borrego tube on ice) Ordered. EDMS 12:32 -Blood Culture Ordered. EDMS 12:32 -Blood Culture (Adults Only), peripheral from different site, or from device/port/PICC deg etc. if present complete. 12:33 BLOOD CULTURES Ordered. EDMS 13:09 Financial registration complete. lg 13:30 Liver Profile Reviewed. sd1 13:30 MED Profile Reviewed. sd1 13:30 Cardiac Injury Profile Reviewed. sd1 13:30 Thyroid Stimulating Hormone Reviewed. sd1 13:30 Troponin Reviewed. sd1 13:44 Lactic Acid (Borrego tube on ice) Reviewed. sd1 13:46 BED REQUEST+ADM ordered. EDMS 14:06 [facility] Payment Agreement was scanned into [employer] and attached to record. lg 14:33 Urine,Osmolality Ordered. EDMS 14:33 Urine Random,Sodium Ordered. EDMS 14:33 Urine Random,Creatinine Ordered. EDMS 14:33 Osmolality, Serum Ordered. EDMS 14:36 CT Head Without Contrast Ordered. EDMS 16:13 BASIC METABOLIC PROFILE Ordered. EDMS 16:15 Admission / Observation Status ordered. EDMS 16:15 CONSISTENT CARBOHYDRATES ordered. EDMS 16:22 BASIC METABOLIC PROFILE Ordered. EDMS 17:23 Osmolality, Serum Reviewed. sd1 17:23 BASIC METABOLIC PROFILE Reviewed. sd1 17:23 Hip,AP,LAT to include Pelvis Reviewed. sd1 17:23 Chest, 2 View (pa\E\lat) Reviewed. sd1 17:23 CT Head Without Contrast Reviewed. sd1 19:31 BASIC METABOLIC PROFILE Ordered. EDMS 19:31 BASIC METABOLIC PROFILE Ordered. EDMS 19:31 BASIC METABOLIC PROFILE Ordered. EDMS 19:31 BASIC METABOLIC PROFILE Ordered. EDMS 19:31 CBC WITH DIFFERENTIAL Ordered. EDMS Administered Medications: 13:04 Drug: NS 0.9% 500 ml [sodium chloride 0.9 % intravenous solution] Route: IV; Rate: kc3 bolus; Site: left forearm; Signatures: Dispatcher [employer] EDMS Ronna Rojas MD MD sd1 Odalis Rodriguez, RN RN kcs Cinthya Driver, Metal Cnc Operator Unit deg Jonathan Zambrano, Reg Reg lg Sivan Mas RN RN kc3 Briseyda UmanaRN RN cf2 The chart was reviewed and I authenticate all verbal orders and agree with the evaluation and treatment provided.Corrections: (The following items were deleted from the chart) 16:25 16:13 BASIC METABOLIC PROFILE ordered. EDMS EDMS Attachments: 14:06 [facility] Payment Agreement lg MTDD
--- NOTE | 2016-07-25 20:15 | EDDOCDS ---
Nurse's Notes [facility] Name: Lawson Zambrano Age: 75 yrs Sex: Male : 1940 Arrival Date: 07/25/2016 Time: 11:42 Bed 9 Private MD: Diagnosis: Bradycardia, unspecified;Hypo-osmolality and hyponatremia Presentation: 07/25 11:46 Presenting complaint: EMS states: he has been dizzy - even sitting down - difficulty kcs getting BP via [employer] - had [place] 2 weeks ago. Was sinus lurdes on the monitor. Per EMS - Went to [place] and was told he needed surgery but he told them no. MDs checking him for GI bleed. EMS turned his NRB down to 10 but he de-sated and then turned it back up -to 15 l/min. Adult Sepsis Screening: The patient does not have new or worsening altered mentation. Patient's respiratory rate is less than 22. Systolic blood pressure is greater than 100. Patient has a qSOFA score of 0- Negative Sepsis Screen. Suicide/Homicide risk assessment- the patient denies having any suicidal and/or homicidal ideations and does not present with any other emotional, behavioral or mental health complaints. Status: Patient is not a park services specialist or dependent. Transition of care: patient was not received from another setting of care. Care prior to arrival: See EMS report. Saline lock initiated. Glucose check. 152 Oxygen administered by EMS. 11:46 Acuity: GLEN Level 2 kcs 11:46 Method Of Arrival: Ambulance kcs Triage Assessment: 12:21 General: Appears distressed, uncomfortable, Behavior is appropriate for age, kc3 cooperative, Family reports pt had "dizzy spell this morning." . Pain: Location: right leg Pain currently is 10 out of 10 on a pain scale. The patient is triaged at the bedside. See Assessment in Nurses Notes section of ED record. Neurological: Level of Consciousness is awake, alert, obeys commands, Oriented to person, place, time. Cardiovascular: Rhythm is sinus bradycardia. Respiratory: Airway is patent Respiratory effort is even, labored, Respiratory pattern is regular, symmetrical, Reports shortness of breath at rest. Derm: Skin is pink, warm & dry. Musculoskeletal: Circulation, motion, and sensation intact Reports pain in right leg reports this is a normal pain for him. Historical: - Allergies: PENICILLINS (Hives); - Home Meds: 1. amiodarone 400 mg Oral tab 1 tab once daily 2. ferrous sulfate 325 mg (65 mg iron) Oral tab twice a day 3. levofloxacin 750 mg Oral tab 1 tab once daily - finished 07/19/2016 4. Nitrostat 0.4 mg SL subl 1 tab every 5 minutes 5. Albuterol Inhl 2 puffs every 4 hours as needed 6. aspirin 81 mg Oral tab 1 tab once daily 7. atenolol 50 mg Oral tab 1 tab once daily 8. atorvastatin 20 mg oral tab 1 tab once daily 9. esomeprazole magnesium 40 mg Oral cpDR 1 cap once daily 10. fenofibrate 160 mg oral tab 1 tab nightly 11. finasteride 5 mg oral tab 1 tab once daily 12. Advair Diskus 250-50 mcg/dose Inhl dsdv 1 puff 2 times per day 13. insulin [id number] units/ml - 40 ml daily 14. insulin detemir 100 units/ml 60 units nightly 15. losartan-hydrochlorothiazide 100-25 mg oral tab 1 tab once daily 16. metformin 500 mg Oral tab 0.5 tab 2 times per day 17. Onglyza 5 mg oral tab 1 tab once daily 18. ranitidine HCl 150 mg Oral tab 1 tab 2 times per day 19. Vitamin D Oral 50,000 unit weekly 20. vitamin E 200 unit Oral tab daily - PMHx: CAD; Diabetes - IDDM: controlled; Emphysema; GERD; Hypercholesterolemia; Hypertension; Nicotine Abuse; Polydispsia; Stroke; - PSHx: Appendectomy; - Social history: Smoking status: Patient states former smoker of tobacco. No barriers to communication noted, The patient speaks fluent Austrian. - Family history: Not pertinent. - : The pt / caregiver states he / she is not on anticoagulants. Home medication list is obtained from a discharge med list. - Exposure Risk Screening:: None identified. Screenin:20 Screening information is obtained from the patient. Fall risk: At risk due to prior 3 history of falls, The following interventions are performed due to a positive Fall Risk Screen: Fall Risk is added to Special Handling on the patient Summary Screen. A Fall Risk Bracelet was applied to the patient. Side Rails are placed in the up position. A Call Tavera is given with instruction to call for help when getting out of bed. Fall Alert bracelet is placed on the patient. Assistance ADL's: requires no assistance with activities of daily living. Abuse/DV Screen: The patient / caregiver reports he/she is: not in a situation that causes fear, pain or injury. Nutritional screening: No deficits noted. Advance Directives: Currently, there is a health care proxy, Samuel Zambrano. There is no active DNR order. There is a living will, and a copy is available at this time. home support is adequate. Assessment: 12:20 General: See triage assessment for initial assessment. . kc3 13:20 General: Appears in no apparent distress, comfortable, Behavior is appropriate for age, kc3 cooperative. Pain: Location: right leg. Neurological: Level of Consciousness is awake, alert, obeys commands, Oriented to person, place, time. Cardiovascular: Rhythm is sinus bradycardia. Respiratory: Airway is patent Respiratory effort is even, unlabored, Reports shortness of breath. Derm: Skin is intact, is healthy with good turgor. 14:30 General: Appears in no apparent distress, comfortable, Behavior is appropriate for age, kc3 cooperative. Neurological: Level of Consciousness is awake, alert, obeys commands, Oriented to person, place, time. Cardiovascular: Rhythm is sinus bradycardia. Respiratory: Airway is patent Respiratory effort is even, unlabored. Derm: Skin is intact, is healthy with good turgor, Skin is pale. 15:40 General: Appears in no apparent distress, comfortable, Behavior is appropriate for age, kc3 cooperative. Neurological: Level of Consciousness is awake, alert, obeys commands, Oriented to person, place, time. Cardiovascular: Rhythm is sinus bradycardia No ectopy. Respiratory: Airway is patent Respiratory effort is even, unlabored, Reports shortness of breath. Derm: Skin is pink, warm & dry. 16:39 General: Appears in no apparent distress, comfortable, Behavior is appropriate for age, kc3 cooperative. Pain: Location: right leg. Neurological: Level of Consciousness is awake, alert, obeys commands, Oriented to person, place, time. Cardiovascular: Rhythm is sinus bradycardia No ectopy. Respiratory: Respiratory effort is even, unlabored, Reports shortness of breath. Derm: Skin is pink, warm & dry. 17:54 General: Appears in no apparent distress, comfortable, Behavior is appropriate for age, kc3 cooperative. Pain: Denies pain. Neurological: Level of Consciousness is awake, alert, obeys commands, Oriented to person, place, time. Cardiovascular: Rhythm is sinus bradycardia. Respiratory: Airway is patent Respiratory effort is even, unlabored. Derm: Skin is intact, is healthy with good turgor, Skin is pink, warm & dry. Musculoskeletal: Circulation, motion, and sensation intact. 18:35 General: Appears in no apparent distress, comfortable, Behavior is appropriate for age, kc3 cooperative. General: Pt given diet tray. . Pain: Denies pain. Neurological: Level of Consciousness is awake, alert, obeys commands, Oriented to person, place, time. Cardiovascular: Rhythm is sinus bradycardia. Respiratory: Respiratory effort is even, unlabored. Derm: Skin is pink, warm & dry. Vital Signs: 11:51 BP 102 / 52; Pulse 56; Resp 20; Temp 96.7(TE); Pulse Ox 98% on 15% Non-rebreather mask; rn1 Weight 91.63 kg; Height 5 ft. 6 in. (167.64 cm); Pain 9/10; 13:16 BP 98 / 56 Supine; Pulse 47; Pulse Ox 97% on R/A; kc3 13:16 BP 94 / 55 Sitting; Pulse 51; Pulse Ox 97% on R/A; kc3 13:16 BP 93 / 53 Standing; Pulse 46; kc3 13:25 Pulse 48 MON; Pulse Ox 97% ; kc3 13:26 BP 116 / 59 (auto/); kc3 13:41 BP 106 / 63 (auto/); kc3 13:41 Pulse 50 MON; Pulse Ox 71% ; kc3 13:56 BP 101 / 58 (auto/); kc3 13:56 Pulse 50 MON; Pulse Ox 98% ; kc3 14:10 Pulse 48 MON; Pulse Ox 96% ; kc3 14:11 BP 118 / 56 (auto/); kc3 14:26 BP 109 / 59 (auto/); kc3 14:26 Pulse 48 MON; Pulse Ox 96% ; kc3 14:41 BP 106 / 56 (auto/); kc3 14:41 Pulse 48 MON; Pulse Ox 97% ; kc3 14:56 BP 117 / 57 (auto/); kc3 14:56 Pulse 48 MON; Pulse Ox 98% ; kc3 15:11 BP 136 / 65 (auto/); kc3 15:12 Pulse 48 MON; Pulse Ox 97% ; kc3 15:26 BP 120 / 58 (auto/); kc3 15:26 Pulse 46 MON; Pulse Ox 96% ; kc3 15:40 Pulse 46 MON; Pulse Ox 97% ; kc3 15:41 BP 138 / 63 (auto/); kc3 15:56 BP 129 / 62 (auto/); kc3 15:56 Pulse 46 MON; Pulse Ox 98% ; kc3 16:11 BP 143 / 65 (auto/); kc3 16:11 Pulse 46 MON; Pulse Ox 99% ; kc3 16:26 BP 127 / 60 (auto/); kc3 16:27 Pulse 48 MON; Pulse Ox 98% ; kc3 16:40 Pulse 46 MON; Pulse Ox 99% ; kc3 16:41 BP 105 / 50 (auto/); kc3 16:56 BP 116 / 55 (auto/); kc3 16:56 Pulse 50 MON; Pulse Ox 100% ; kc3 17:10 Pulse 50 MON; Pulse Ox 99% ; kc3 17:11 BP 146 / 68 (auto/); kc3 17:25 Pulse 50 MON; Pulse Ox 99% ; kc3 17:26 BP 152 / 72 (auto/); kc3 17:41 BP 164 / 78 (auto/); kc3 17:42 Pulse 52 MON; Resp 20; Temp 98.1(TE); Pulse Ox 96% ; kc3 11:51 Body Mass Index 32.60 (91.63 kg, 167.64 cm) rn1 13:16 pt reports dizziness kc3 Vitals: 12:22 Log In Time N/A - ambulance arrival. kc3 ED Course: 11:42 Patient visited by Cinthya Driver, Facility Environmental Technician. deg 11:42 Patient moved to Waiting deg 11:43 Lyndsey Rivas, RN is Primary Nurse. deg 11:43 Patient moved to 9 deg 11:50 Triage Initiated kcs 12:13 Ronna Rojas MD is Attending Physician. sd1 12:20 Patient visited by Ronna Rojas MD. sd1 12:21 The patient / caregiver is instructed regarding the plan of care and ED course. kc3 12:21 Maintain field IV. Dressing intact. Good blood return noted. Site clean & dry. Gauge & kc3 site: 20g left forearm. 12:23 Patient visited by Sivan Mas RN. kc3 12:57 Patient visited by Sivan Mas RN. kc3 13:04 -Blood Culture Sent. kc3 13:04 Lactic Acid (Borrego tube on ice) Sent. kc3 13:16 BLOOD CULTURES Sent. kc3 13:34 Patient visited by Sivan Mas RN. kc3 14:05 Patient name changed from Lawson\\S\\G\\S\\Alberry\\S\\ to Lawson\\S\\ \\S\\Alberry. EDMS 14:06 [facility] Payment Agreement was scanned into [employer] and attached to record. lg 14:25 Patient visited by Sivan Mas RN. kc3 14:58 Patient visited by Sivan Mas RN. kc3 15:05 Gt Jarquin is Hospitalizing Provider. sd1 15:26 Chest, 2 View (pa\\E\\lat) Returned. EDMS 15:26 Hip,AP,LAT to include Pelvis Returned. EDMS 16:20 CT Head Without Contrast Returned. EDMS 16:41 No procedures done that require assistance. kc3 18:24 Patient visited by Elaine Asher PCA. bnb 18:24 Diet: Patient given regular meal. Tolerated well. bnb 19:11 Urine Random,Creatinine Sent. kc3 19:11 Urine Random,Sodium Sent. kc3 19:11 Urine,Osmolality Sent. kc3 19:16 Primary Nurse role handed off by Lyndsey Rivas, RN cf2 19:16 Briseyda Umana,MIRANDA is Primary Nurse. cf2 19:17 Patient visited by Briseyda Umana RN. cf2 19:30 Patient visited by Briseyda Umana,MIRANDA. cf2 20:14 Patient visited by Briseyda Umana,MIRANDA. cf2 Administered Medications: 13:04 Drug: NS 0.9% 500 ml [sodium chloride 0.9 % intravenous solution] Route: IV; Rate: kc3 bolus; Site: left forearm; Order Results: Lab Order: CBC with Diff; SPEC'M 07/25/16 12:09 Test: WHITE BLOOD COUNT; Value: 4.2; Range: 4.0-10.0; Units: K/mm3; Status: F Test: RED BLOOD COUNT; Value: 3.13; Range: 4.30-6.10; Abnormal: Below low normal; Units: M/mm3; Status: F Test: HEMOGLOBIN; Value: 9.8; Range: 14.0-18.0; Abnormal: Below low normal; Units: g/dl; Status: F Test: HEMATOCRIT; Value: 27.8; Range: 42.0-52.0; Abnormal: Below low normal; Units: %; Status: F Test: MEAN CORPUSCULAR VOLUME; Value: 88.8; Range: 80.0-96.0; Units: fl; Status: F Test: MEAN CORPUSCULAR HEMOGLOBIN; Value: 31.2; Range: 27.0-33.0; Units: pg; Status: F Test: MEAN CORPUSCULAR HGB CONC; Value: 35.1; Range: 32.0-36.5; Units: g/dl; Status: F Test: RED CELL DISTRIBUTION WIDTH; Value: 14.7; Range: 11.5-14.5; Abnormal: Above high normal; Units: %; Status: F Test: PLATELET COUNT, AUTOMATED; Value: 195; Range: 150-450; Units: k/mm3; Status: F Test: NEUTROPHILS %; Value: 68.5; Range: 36.0-66.0; Abnormal: Above high normal; Units: %; Status: F Test: LYMPH %; Value: 19.5; Range: 24.0-44.0; Abnormal: Below low normal; Units: %; Status: F Test: MONO %; Value: 6.2; Range: 0.0-5.0; Abnormal: Above high normal; Units: %; Status: F Test: EOS %; Value: 1.8; Range: 0.0-3.0; Units: %; Status: F Test: BASO %; Value: 0.6; Range: 0.0-1.0; Units: %; Status: F Test: LARGE UNSTAINED CELL %; Value: 3.3; Range: 0.0-4.0; Units: %; Status: F Test: NEUTROPHILS #; Value: 2.9; Range: 1.8-7.7; Units: K/mm3; Status: F Test: LYMPH #; Value: 0.8; Range: 1.5-4.5; Abnormal: Below low normal; Units: K/mm3; Status: F Test: MONO #; Value: 0.3; Range: 0.0-0.8; Units: K/mm3; Status: F Test: EOS #; Value: 0.1; Range: 0.0-0.50; Units: K/mm3; Status: F Test: BASO #; Value: 0.0; Range: 0.0-0.2; Units: K/mm3; Status: F Test: LARGE UNSTAINED CELL #; Value: 0.1; Range: 0.0-0.4; Units: K/mm3; Status: F Lab Order: Cardiac Injury Profile; SPEC'M 07/25/16 12:09 Test: CPK CREATINE PHOSPHOKINASE; Value: 84; Range: 39-308; Units: U/L; Status: F Test: CK-MB VALUE MASS; Value: 3.3; Range: 0.0-3.6; Units: NG/ML; Status: F Test: MB/CK RELATIVE INDEX; Value: 3.92; Range: < OR =4; Status: F Test Note: ; DIAGNOSIS CRITERIA MMB ng/ml Relative Index (RI) NON-AMI < or = 5 N/A BORREGO ZONE > 5 < or = 4 AMI > 5 > 4 Lab Order: Liver Profile; SPEC'M 07/25/16 12:09 Test: AST/SGOT; Value: 20; Range: 15-37; Units: U/L; Status: F Test: ALT/SGPT; Value: 36; Range: 12-78; Units: U/L; Status: F Test: ALKALINE PHOSPHATASE; Value: 62; Range: 45-117; Units: U/L; Status: F Test: BILIRUBIN,TOTAL; Value: 0.7; Range: 0.2-1.0; Units: MG/DL; Status: F Test: BILIRUBIN,DIRECT; Value: 0.2; Range: 0.0-0.2; Units: MG/DL; Status: F Test: TOTAL PROTEIN; Value: 6.2; Range: 6.4-8.2; Abnormal: Below low normal; Units: GM/DL; Status: F Test: ALBUMIN; Value: 3.1; Range: 3.2-5.2; Abnormal: Below low normal; Units: GM/DL; Status: F Test: ALBUMIN/GLOBULIN RATIO; Value: 1.00; Range: 1.00-1.93; Status: F Lab Order: MED Profile; SPEC07/25/16 12:09 Test: GLUCOSE, FASTING; Value: 120; Range: 83-110; Abnormal: Above high normal; Units: MG/DL; Status: F Test: BLOOD UREA NITROGEN; Value: 23; Range: 7-18; Abnormal: Above high normal; Units: MG/DL; Status: F Test: CREATININE FOR GFR; Value: 1.43; Range: 0.70-1.30; Abnormal: Above high normal; Units: MG/DL; Status: F Test: GLOMERULAR FILTRATION RATE; Value: 51.3; Range: >42; Status: F Test: SODIUM LEVEL; Value: 123; Range: 136-145; Abnormal: Below low normal; Units: MEQ/L; Status: F Test: POTASSIUM SERUM; Value: 4.8; Range: 3.5-5.1; Units: MEQ/L; Status: F Test: CHLORIDE LEVEL; Value: 89; Range: 98-107; Abnormal: Below low normal; Units: MEQ/L; Status: F Test: CARBON DIOXIDE LEVEL; Value: 24; Range: 21-32; Units: MEQ/L; Status: F Test: ANION GAP; Value: 10; Range: 8-16; Units: MEQ/L; Status: F Test: CALCIUM LEVEL; Value: 8.2; Range: 8.8-10.2; Abnormal: Below low normal; Units: MG/DL; Status: F Test Note: ; Units are mL/min/1.73 m2 Chronic Kidney Disease Staging per NKF: Stage I & II GFR >=60 Normal to Mildly Decreased Stage III GFR 30-59 Moderately Decreased Stage IV GFR 15-29 Severely Decreased Stage V GFR <15 Very Little GFR Left ESRD GFR <15 on FAMILY RESOURCE MANAGEMENT SPECIALIST Lab Order: Thyroid Stimulating Hormone; SPEC'07/25/16 12:09 Test: THYROID STIMULATING HORMONE; Value: 0.875; Range: 0.358-3.740; Units: uIU/ML; Status: F Lab Order: Troponin; SPEC'07/25/16 12:09 Test: TROPONIN I; Value: 0.10; Range: < 0.10; Units: NG/ML; Status: F Test Note: ; Troponin I Reference Interval for [employer] LOCI: 99th Percentile= 0.00-0.045 ng/ml Risk Stratification: <= 0.10 ng/ml Decreased Risk for Adverse Clinical Events. 0.10-1.50 ng/ml Increased Risk for Adverse Clinical Events. Evaluation of additional criterion and/or repeat testing in 2-6 hours is suggested to rule out myocardial damage. >= 1.50 ng/ml Indicative of Myocardial Injury. Lab Order: Fingerstick Blood Sugar; [facility]07/25/16 12:06 Test: BEDSIDE GLUCOSE; Value: 147; Range: 83-110; Abnormal: Above high normal; Units: MG/DL; Status: F Lab Order: Lactic Acid (Borrego tube on ice); 07/25/16 12:55 Test: LACTIC ACID LEVEL, LACTATE; Value: 2.0; Range: 0.4-2.0; Units: MMOL/L; Status: F Lab Order: Urine,Osmolality; 07/25/16 19:10 Test: OSMOLALITY URINE; Value: 452; Range: 500-800; Abnormal: Below low normal; Units: MOSM/KG; Status: F Lab Order: Urine Random,Sodium; 07/25/16 19:10 Test: SODIUM,RANDOM URINE; Value: 76; Units: MEQ/L; Status: F Lab Order: Urine Random,Creatinine; 07/25/16 19:10 Test: CREATININE,RANDOM URINE; Value: 110.0; Units: MG/DL; Status: F Lab Order: Osmolality, Serum; 07/25/16 15:37 Test: OSMOLALITY SERUM; Value: 259; Range: 280-301; Abnormal: Below low normal; Units: MOSM/KG; Status: F Lab Order: BASIC METABOLIC PROFILE; 07/25/16 15:37 Test: GLUCOSE, FASTING; Value: 125; Range: 83-110; Abnormal: Above high normal; Units: MG/DL; Status: F Test: BLOOD UREA NITROGEN; Value: 24; Range: 7-18; Abnormal: Above high normal; Units: MG/DL; Status: F Test: CREATININE FOR GFR; Value: 1.34; Range: 0.70-1.30; Abnormal: Above high normal; Units: MG/DL; Status: F Test: SODIUM LEVEL; Range: 136-145; Units: MEQ/L; Status: I Test: POTASSIUM SERUM; Range: 3.5-5.1; Units: MEQ/L; Status: I Test: CHLORIDE LEVEL; Range: 98-107; Units: MEQ/L; Status: I Test: CARBON DIOXIDE LEVEL; Range: 21-32; Units: MEQ/L; Status: I Test: ANION GAP; Range: 8-16; Units: MEQ/L; Status: I Test: CALCIUM LEVEL; Range: 8.8-10.2; Units: MG/DL; Status: I Test: GLOMERULAR FILTRATION RATE; Value: 55.3; Range: >42; Status: F Test: SODIUM LEVEL; Value: 125; Range: 136-145; Abnormal: Below low normal; Units: MEQ/L; Status: F Test: POTASSIUM SERUM; Value: 5.2; Range: 3.5-5.1; Abnormal: Above high normal; Units: MEQ/L; Status: F Test: CHLORIDE LEVEL; Value: 92; Range: 98-107; Abnormal: Below low normal; Units: MEQ/L; Status: F Test: CARBON DIOXIDE LEVEL; Value: 23; Range: 21-32; Units: MEQ/L; Status: F Test: ANION GAP; Value: 10; Range: 8-16; Units: MEQ/L; Status: F Test: CALCIUM LEVEL; Value: 8.0; Range: 8.8-10.2; Abnormal: Below low normal; Units: MG/DL; Status: F Test Note: ; Units are mL/min/1.73 m2 Chronic Kidney Disease Staging per NKF: Stage I & II GFR >=60 Normal to Mildly Decreased Stage III GFR 30-59 Moderately Decreased Stage IV GFR 15-29 Severely Decreased Stage V GFR <15 Very Little GFR Left ESRD GFR <15 on FAMILY RESOURCE MANAGEMENT SPECIALIST Radiology Order: Hip,AP,LAT to include Pelvis Test: Hip,AP,LAT to include Pelvis REASON FOR EXAMINATION: Trauma; PELVIS RIGHT HIP:; ; Three views.; ; HISTORY: Trauma.; ; FINDINGS: AP view of the pelvis and AP and frog-leg views of the right hip are; obtained. No pelvic or hip fracture is seen. No sacral fracture is noted.; There is fairly prominent vascular calcification.; ; IMPRESSION: No fracture seen.; ; ; Signed by; Abe Lee MD 07/25/2016 03:10 P; Radiology Order: Chest, 2 View (pa\\E\\lat) Test: Chest, 2 View (pa\\E\\lat) REASON FOR EXAMINATION: Cough; CHEST X-RAY:; ; Two views.; ; HISTORY: Cough.; ; Comparison chest x-rays from July 17, 2016.; ; FINDINGS: There is a patchy area of increased density in the left base along the; left heart border on today's chest x-ray. This may be atelectasis or early; infiltrate. Pleural angles are sharp. Lung espinoza are otherwise clear. Heart; is not enlarged.; ; IMPRESSION:; ; Patchy somewhat linear density left base. Atelectasis versus infiltrate. There; is slight blunting of one of the posterior pleural angles on lateral film as; well.; ; ; Signed by; Abe Lee MD 07/25/2016 03:10 P; Radiology Order: CT Head Without Contrast Test: CT Head Without Contrast REASON FOR EXAMINATION: Trauma; CT HEAD WITHOUT CONTRAST:; ; HISTORY: Trauma.; ; COMPARISON: 06/16/2016.; ; Areas of decreased attentuation are present in the right basal ganglia. These; represent old lacunar infarctions. Areas of decreased attentuation are present; in the periventricular and subcortical white matter. This represents small; vessel ischemic disease. There is no intraparenchymal hemorrhage, mass, or; midline shift. The ventricular system and cortical sulci are dilated consistent; with moderate volume loss. There is no extracerebral collection. Mucosal; thickening is present in the left maxillary sinus.; ; IMPRESSION:; ; 1. Old right basal ganglia lacunar infarctions.; ; 2. Small vessel ischemic disease.; ; 3. Moderate volume loss.; ; ; Signed by; Cam Jones MD 07/25/2016 03:42 P; Outcome: 15:05 Decision to Hospitalize by Provider. sd1 17:57 CT Study completed. kc3 20:14 Discharge Assessment: Patient awake, alert and oriented x 3. No cognitive and/or cf2 functional deficits noted. Patient verbalized understanding of disposition instructions. Patient patient administered narcotics - no. The following High Risk Discharge criteria are identified: None. Admitted to PCU. Condition: unchanged. Property :Personal belongings accompany Pt. 20:14 Patient left the ED. cf2 Signatures: Dispatcher [employer] EDMS Ronna Rojas MD MD sd1 Odalis Rodriguez, RN RN kcs Cinthya Driver, Facility Environmental Technician Unit deg Jonathan Zambrano, Reg Reg lg Gary Chaidez rn1 Sivan Mas RN RN kc3 Briseyda Umana RN RN cf2 Elaine Asher, SANDEE PLASTER FOREMAN bnb Corrections: (The following items were deleted from the chart) 17:58 17:42 Pulse 52bpm; Monitor; Pulse Ox 96%; kc3 kc3 MTDD
[2016-07-25 20:45] VITALS: BP 138/69
[2016-07-25] MEDS: ADVAIR DISKUS 250/50 INH PWD INH SCH (20:56)
[2016-07-25] MEDS ORDERED: ATORVASTATIN 20 MG TAB PO SCH (21:00)
[2016-07-25] MEDS ORDERED: HumaLOG INSULIN (NovoLOG) PER UNIT SC SCH (21:00)
[2016-07-25] MEDS ORDERED: LEVEMIR (INSULIN DETEMIR) 1 UNITS/0.01ML SC SCH (21:00)
--- NOTE | 2016-07-25 21:15 | ECGEPIP ---
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
[2016-07-25] MEDS ORDERED: SLF 3 ML SYR IV PRN (21:30)
[2016-07-25 21:33] LABS: CALCIUM LEVEL 8.1 MG/DL (8.8-10.2); CREATININE FOR GFR 1.34 MG/DL (0.70-1.30); GLOMERULAR FILTRATION RATE 55.3 (>42); POTASSIUM SERUM 4.8 MEQ/L (3.5-5.1)
[2016-07-25] MEDS: SLF 3 ML SYR IV SCH (21:42)
[2016-07-25] MEDS: FERROUS SULFATE 325MG TAB PO SCH (21:44)
[2016-07-26] VITALS: BP 125/65
[2016-07-26 01:16] LABS: CREATININE FOR GFR 1.36 MG/DL (0.70-1.30); GLOMERULAR FILTRATION RATE 54.4 (>42); POTASSIUM SERUM 4.7 MEQ/L (3.5-5.1)
[2016-07-26 04:00] VITALS: BP 99/51
[2016-07-26] MEDS: SLF 3 ML SYR IV SCH (04:09)
[2016-07-26 04:54] LABS: BASO % 0.4 % (0.0-1.0); EOS # 0.1 K/mm3 (0.0-0.50); EOS % 1.6 % (0.0-3.0); LARGE UNSTAINED CELL # 0.1 K/mm3 (0.0-0.4); LARGE UNSTAINED CELL % 2.9 % (0.0-4.0); LYMPH # 1.1 K/mm3 (1.5-4.5); LYMPH % 24.2 % (24.0-44.0); MEAN CORPUSCULAR HEMOGLOBIN 31.2 pg (27.0-33.0); MEAN CORPUSCULAR HGB CONC 35.2 g/dl (32.0-36.5); MEAN CORPUSCULAR VOLUME 88.7 fl (80.0-96.0); MONO # 0.3 K/mm3 (0.0-0.8); MONO % 5.9 % (0.0-5.0); NEUTROPHILS # 3.1 K/mm3 (1.8-7.7); PLATELET COUNT, AUTOMATED 195 k/mm3 (150-450); RED CELL DISTRIBUTION WIDTH 14.6 % (11.5-14.5); WHITE BLOOD COUNT 4.7 K/mm3 (4.0-10.0)
[2016-07-26 05:00] VITALS: BP 130/62
[2016-07-26 05:07] LABS: CALCIUM LEVEL 8.2 MG/DL (8.8-10.2); CREATININE FOR GFR 1.33 MG/DL (0.70-1.30); GLOMERULAR FILTRATION RATE 55.8 (>42); POTASSIUM SERUM 4.4 MEQ/L (3.5-5.1)
[2016-07-26] MEDS: ADVAIR DISKUS 250/50 INH PWD INH SCH (07:13)
[2016-07-26] MEDS: HumaLOG INSULIN (NovoLOG) PER UNIT SC SCH ×2 (07:30→12:00)
[2016-07-26 08:00] VITALS: BP 126/58
[2016-07-26 08:22] LABS: CALCIUM LEVEL 8.2 MG/DL (8.8-10.2); CREATININE FOR GFR 1.32 MG/DL (0.70-1.30); GLOMERULAR FILTRATION RATE 56.3 (>42); POTASSIUM SERUM 4.5 MEQ/L (3.5-5.1)
[2016-07-26] MEDS ORDERED: ASPIRIN 81 MG CHEW TABLET PO SCH (09:00)
[2016-07-26] MEDS ORDERED: LEVEMIR (INSULIN DETEMIR) 1 UNITS/0.01ML SC SCH (09:00)
[2016-07-26] MEDS ORDERED: VITAMIN E 200 INTERNATIONAL UNITS CAP PO SCH (09:00)
[2016-07-26] MEDS ORDERED: PANTOPRAZOLE 40MG TAB (PROTONIX) PO SCH (09:00)
[2016-07-26] MEDS ORDERED: ACETAMINOPHEN TAB 650MG DOSE (2X325MG) PO PRN (09:15)
[2016-07-26] MEDS: FERROUS SULFATE 325MG TAB PO SCH (09:46)
[2016-07-26 12:00] VITALS: BP 116/63
[2016-07-26] MEDS ORDERED: ATEN50TA2 PO (12:25)
[2016-07-26] MEDS ORDERED: PACE400T PO (12:25)
[2016-07-26] MEDS ORDERED: ZOLO50TA PO (12:25)
--- NOTE | 2016-07-26 12:27 | DS.PDOC ---
Discharge Summary General Date of Admission Jul 25, 2016 at 16:02 Date of Discharge 07/26/16 Primary Care Physician: PEREZ MANE MD Attending Physician: PEREZ MANE MD Discharge Summary PROCEDURES PERFORMED DURING STAY: none COMPLICATIONS/CHIEF COMPLAINT: Syncopal Episodes ADMISSION DIAGNOSES: 1. syncope 2. bradycardia 3. chronic hyponatremia 4. chronic anemia 5. end-stage COPD 6. CKD 7. Smoker 8. Tachy-lurdes syndrome 9. Ischemic cardiomyopathy DISCHARGE DIAGNOSES: 1. hospice care 2. DNR/DNI 3. bradycardia 4. chronic hyponatremia 5. chronic anemia 6. end-stage COPD 7. CKD 8. Smoker 9. Tachy-lurdes syndrome 9. Ischemic cardiomyopathy HISTORY OF PRESENT ILLNESS: HOSPITAL COURSE: Pt was admitted 07/25/16 after syncopal episode at home. Pt was found to be bradycardic with blood pressures in the low 100s. He was admitted to telemetry for monitoring of tachy-lurdes syndrome. He betablocker was held. On the day of discharge, the patient was adamant that he just wanted to be at home. He did not want further medical intervention, and just wished to be kept comfortable. A family meeting was held. The patient elected to be discharged home on hospice care. The patient updated his MOLST form to include DNR/DNR/antibiotics by review basis/trial of fluids if needed/no artificial feeding/no transport to the hospital. The patient was discharged home with his son, with a referral to home hospice. DISCHARGE MEDICATIONS: Please see below. ALLERGIES: Please see below. PHYSICAL EXAMINATION ON DISCHARGE: VITAL SIGNS: Please see below. GENERAL: alert, comfortable, nad HEENT: sclera clear, MMM, nasal canula in place NECK: no jvd CARDIOVASCULAR EXAMINATION: bradycardic, regular, S1, S2, no m/r/g, no heave RESPIRATORY EXAMINATION: decreased breath sounds throughout lung espinoza, normal work of breathing ABDOMINAL EXAMINATION: soft, non-tender, non-distended, +BS EXTREMITIES: no edema SKIN: no rashes or lesions NEUROLOGICAL EXAMINATION: alert, no gross neurologic deficits, steady gait with FWW PSYCHIATRIC EXAMINATION: normal mood and affect LABORATORY DATA: Please see below. 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 followup to home hospice DISCHARGE PLAN AND INSTRUCTIONS: 1. hold atenolol and give only if HR >110 TIME SPENT ON DISCHARGE: Greater than 30 minutes. Vital Signs/I&Os Vital Signs Date Time Temp Pulse Resp B/P Pulse Ox O2 Delivery O2 Flow Rate FiO2 07/26/16 12:00 97.5 62 18 116/63 97 Nasal Cannula 2.0 I&O- Last 24 Hours up to 6 AM 07/26/16 06:00 Intake Total 300 ml Output Total 1325 ml Balance -1025 ml Laboratory Data Labs 24H Laboratory Tests 2 07/25/16 12:55: Lactic Acid Level 2.0 07/25/16 15:37: Anion Gap 10, Blood Urea Nitrogen 24H, Creatinine 1.34H, Sodium Level 125L, Potassium Level 5.2H, Chloride Level 92L, Carbon Dioxide Level 23, Calcium Level 8.0L, Glomerular Filtration Rate 55.3, Osmolality 259L 07/25/16 19:10: Urine Random Creatinine 110.0, Urine Random Osmolality 452L, Urine Random Sodium 76 07/25/16 19:58: Anion Gap 9, Blood Urea Nitrogen 24H, Creatinine 1.34H, Sodium Level 124L, Potassium Level 4.8, Chloride Level 91L, Carbon Dioxide Level 24, Calcium Level 8.1L, Glomerular Filtration Rate 55.3 07/25/16 21:28: Bedside Glucose (Misc Panel) 134H 07/26/16 00:45: Anion Gap 7L, Blood Urea Nitrogen 23H, Creatinine 1.36H, Sodium Level 122L, Potassium Level 4.7, Chloride Level 89L, Carbon Dioxide Level 26, Calcium Level 8.0L, Glomerular Filtration Rate 54.4 07/26/16 04:28: Anion Gap 10, Blood Urea Nitrogen 21H, Creatinine 1.33H, Sodium Level 126L, Potassium Level 4.4, Chloride Level 90L, Carbon Dioxide Level 26, Calcium Level 8.2L, Glomerular Filtration Rate 55.8, White Blood Count 4.7, Red Blood Count 3.05L, Hemoglobin 9.5L, Hematocrit 27.1L, Mean Corpuscular Volume 88.7, Mean Corpuscular Hemoglobin 31.2, Mean Corpuscular Hemoglobin Concent 35.2, Red Cell Distribution Width 14.6H, Platelet Count 195, Neutrophils (%) (Auto) 65.0, Lymphocytes (%) (Auto) 24.2, Monocytes (%) (Auto) 5.9H, Eosinophils (%) (Auto) 1.6, Basophils (%) (Auto) 0.4, Neutrophils # (Auto) 3.1, Lymphocytes # (Auto) 1.1L, Monocytes # (Auto) 0.3, Eosinophils # (Auto) 0.1, Basophils # (Auto) 0.0, Large Unclassified Cells # 0.1, Large Unclassified Cells % 2.9 07/26/16 07:51: Anion Gap 9, Blood Urea Nitrogen 21H, Creatinine 1.32H, Sodium Level 124L, Potassium Level 4.5, Chloride Level 89L, Carbon Dioxide Level 26, Calcium Level 8.2L, Glomerular Filtration Rate 56.3 CBC/BMP Laboratory Tests 07/25/16 15:37 Calcium Level 8.0 L 07/25/16 19:58 Calcium Level 8.1 L 07/26/16 00:45 Calcium Level 8.0 L 07/26/16 04:28 Calcium Level 8.2 L, Red Blood Count 3.05 L, Mean Corpuscular Volume 88.7, Mean Corpuscular Hemoglobin 31.2, Mean Corpuscular Hemoglobin Concent 35.2, Red Cell Distribution Width 14.6 H, Neutrophils (%) (Auto) 65.0, Lymphocytes (%) (Auto) 24.2, Monocytes (%) (Auto) 5.9 H, Eosinophils (%) (Auto) 1.6, Basophils (%) ( Auto) 0.4, Neutrophils # (Auto) 3.1, Lymphocytes # (Auto) 1.1 L, Monocytes # ( Auto) 0.3, Eosinophils # (Auto) 0.1, Basophils # (Auto) 0.0 07/26/16 07:51 Calcium Level 8.2 L FSBS Laboratory Tests Test 07/25/16 21:28 Range/Units Bedside Glucose (Misc Panel) 134 83-110 MG/DL Microbiology Microbiology 07/25/16 Blood Culture, Received Pending 07/25/16 Blood Culture, Received Pending Medications Scheduled (Aspirin Childrens) 81 Mg Chw 162 MG PO DAILY (Losartan Potassium/Hydroc 100-25 mg) 1 Tab Tab 1 TAB PO DAILY Amiodarone Hcl (Pacerone) 400 Mg Tab 0.5 TAB PO DAILY atrial fibrillation Whole tab if HR persists >100 and he has taken his as needed atenolol, then Call MD. Atorvastatin Calcium (Atorvastatin Calcium) 20 Mg Tab 20 MG PO QHS Cholecalciferol (Vitamin D) 1,000 Unit Tab 1,000 UNIT PO DAILY Esomeprazole Magnesium Trihydr (Nexium) 40 Mg Cap 40 MG PO DAILY Ferrous Sulfate (Ferrous Sulfate) 325 Mg Tab 325 MG PO BID Finasteride (Finasteride) 5 Mg Tab 5 MG PO DAILY Insulin Detemir (Levemir Flextouch) 100 Unit/Ml Inj 62 UNIT SC QHS Insulin Detemir (Levemir Flextouch) 100 Unit/Ml Inj 42 UNIT SC DAILY Metformin Hydrochloride (Metformin HCl) 500 Mg Tab 500 MG PO DAILY TAPER DOSE - SEE COMMENTS Ranitidine HCl (Ranitidine HCl) 150 Mg Tab 1 TAB PO BID Salmeterol/Fluticasone (Advair Diskus 250-50 Mcg/Dose) 14 Puff/Inhaler Aerp 1 PUFF INH BID Sertraline Hcl (Zoloft) 50 Mg Tab 50 MG PO QHS MOOD Vitamin D (Drisdol) 50,000 Unit Cap 50,000 UNIT PO QWEEK MONDAYS Vitamin E (Vitamin E) 200 Unit Cap 200 UNIT PO DAILY Scheduled PRN Albuterol Sulfate (Ventolin Hfa) 200 Puff/8 Gm Aers 2 PUFF INH Q4H PRN PRN SHORTNESS OF BREATH Atenolol (Atenolol) 50 Mg Tab 50 MG PO DAILYPRN PRN PRN Heart rate >100 Nitroglycerin (Nitrostat) 0.4 Mg Subl 0.4 MG SL Q5MP PRN PRN CHEST PAIN Allergies Coded Allergies: Penicillins (Unverified Allergy, Intermediate, RASH, 04/30/16) Milk Protein Extract (Unverified Allergy, Unknown, HEART FLUTTERS, 07/25/16 ) Tiotropium (Unverified Allergy, Unknown, HEART FLUTTERS, 07/25/16) PEREZ MANE MD Jul 26, 2016 12:27
--- NOTE | 2016-07-27 21:15 | EDDOCDS ---
Physician Documentation [facility] Name: Lawson Zambrano Age: 75 yrs Sex: Male : 1940 Arrival Date: 07/25/2016 Time: 11:42 Bed 9 Private MD: Disposition: 07/25/16 15:05 Hospitalization ordered by Gt Jarquin for Inpatient Admission. Preliminary diagnosis are Bradycardia, unspecified, Hypo-osmolality and hyponatremia. - Bed requested for PCU. - Status is Inpatient Admission. cf2 - Condition is Stable. - Problem is new. - Symptoms are unchanged. Historical: - Allergies: PENICILLINS (Hives); - Home Meds: 1. amiodarone 400 mg Oral tab 1 tab once daily 2. ferrous sulfate 325 mg (65 mg iron) Oral tab twice a day 3. levofloxacin 750 mg Oral tab 1 tab once daily - finished 07/19/2016 4. Nitrostat 0.4 mg SL subl 1 tab every 5 minutes 5. Albuterol Inhl 2 puffs every 4 hours as needed 6. aspirin 81 mg Oral tab 1 tab once daily 7. atenolol 50 mg Oral tab 1 tab once daily 8. atorvastatin 20 mg oral tab 1 tab once daily 9. esomeprazole magnesium 40 mg Oral cpDR 1 cap once daily 10. fenofibrate 160 mg oral tab 1 tab nightly 11. finasteride 5 mg oral tab 1 tab once daily 12. Advair Diskus 250-50 mcg/dose Inhl dsdv 1 puff 2 times per day 13. insulin albifvx003 units/ml - 40 ml daily 14. insulin detemir 100 units/ml 60 units nightly 15. losartan-hydrochlorothiazide 100-25 mg oral tab 1 tab once daily 16. metformin 500 mg Oral tab 0.5 tab 2 times per day 17. Onglyza 5 mg oral tab 1 tab once daily 18. ranitidine HCl 150 mg Oral tab 1 tab 2 times per day 19. Vitamin D Oral 50,000 unit weekly 20. vitamin E 200 unit Oral tab daily - PMHx: CAD; Diabetes - IDDM: controlled; Emphysema; GERD; Hypercholesterolemia; Hypertension; Nicotine Abuse; Polydispsia; Stroke; - PSHx: Appendectomy; - Social history: Smoking status: Patient states former smoker of tobacco. No barriers to communication noted, The patient speaks fluent Malian. - Family history: Not pertinent. - : The pt / caregiver states he / she is not on anticoagulants. Home medication list is obtained from a discharge med list. - Exposure Risk Screening:: None identified. Vital Signs: 07/25 11:51 BP 102 / 52; Pulse 56; Resp 20; Temp 96.7(TE); Pulse Ox 98% on 15% Non-rebreather mask; rn1 Weight 91.63 kg / 202.01 lbs; Height 5 ft. 6 in. (167.64 cm); Pain 9/10; 13:16 BP 98 / 56 Supine; Pulse 47; Pulse Ox 97% on R/A; kc3 13:16 BP 94 / 55 Sitting; Pulse 51; Pulse Ox 97% on R/A; kc3 13:16 BP 93 / 53 Standing; Pulse 46; kc3 13:25 Pulse 48 MON; Pulse Ox 97% ; kc3 13:26 BP 116 / 59 (auto/); kc3 13:41 BP 106 / 63 (auto/); kc3 13:41 Pulse 50 MON; Pulse Ox 71% ; kc3 13:56 BP 101 / 58 (auto/); kc3 13:56 Pulse 50 MON; Pulse Ox 98% ; kc3 14:10 Pulse 48 MON; Pulse Ox 96% ; kc3 14:11 BP 118 / 56 (auto/); kc3 14:26 BP 109 / 59 (auto/); kc3 14:26 Pulse 48 MON; Pulse Ox 96% ; kc3 14:41 BP 106 / 56 (auto/); kc3 14:41 Pulse 48 MON; Pulse Ox 97% ; kc3 14:56 BP 117 / 57 (auto/); kc3 14:56 Pulse 48 MON; Pulse Ox 98% ; kc3 15:11 BP 136 / 65 (auto/); kc3 15:12 Pulse 48 MON; Pulse Ox 97% ; kc3 15:26 BP 120 / 58 (auto/); kc3 15:26 Pulse 46 MON; Pulse Ox 96% ; kc3 15:40 Pulse 46 MON; Pulse Ox 97% ; kc3 15:41 BP 138 / 63 (auto/); kc3 15:56 BP 129 / 62 (auto/); kc3 15:56 Pulse 46 MON; Pulse Ox 98% ; kc3 16:11 BP 143 / 65 (auto/); kc3 16:11 Pulse 46 MON; Pulse Ox 99% ; kc3 16:26 BP 127 / 60 (auto/); kc3 16:27 Pulse 48 MON; Pulse Ox 98% ; kc3 16:40 Pulse 46 MON; Pulse Ox 99% ; kc3 16:41 BP 105 / 50 (auto/); kc3 16:56 BP 116 / 55 (auto/); kc3 16:56 Pulse 50 MON; Pulse Ox 100% ; kc3 17:10 Pulse 50 MON; Pulse Ox 99% ; kc3 17:11 BP 146 / 68 (auto/); kc3 17:25 Pulse 50 MON; Pulse Ox 99% ; kc3 17:26 BP 152 / 72 (auto/); kc3 17:41 BP 164 / 78 (auto/); kc3 17:42 Pulse 52 MON; Resp 20; Temp 98.1(TE); Pulse Ox 96% ; kc3 11:51 Body Mass Index 32.60 (91.63 kg, 167.64 cm) rn1 13:16 pt reports dizziness kc3 MDM: 11:44 ECG WITH READING ER PHYS+CARDIAG ordered. EDMS 11:59 Berry Picker/Pulse Ox/q 15 min VS ordered. sd1 11:59 Accucheck ordered. sd1 11:59 IV Saline Lock ordered. sd1 11:59 Oxygen at 4L/Min NC or Home dosage ordered. sd1 11:59 Rhythm Strip to chart ordered. sd1 11:59 Orthostatic VS ordered. sd1 12:00 CBC with Diff Ordered. EDMS 12:00 Cardiac Injury Profile Ordered. EDMS 12:00 Liver Profile Ordered. EDMS 12:00 MED Profile Ordered. EDMS 12:01 Thyroid Stimulating Hormone Ordered. EDMS 12:01 Troponin Ordered. EDMS 12:19 Fingerstick Blood Sugar Ordered. EDMS 12:29 CBC with Diff Reviewed. sd1 12:29 Fingerstick Blood Sugar Reviewed. sd1 12:30 NS 0.9% 500 ml IV at bolus once ordered. sd1 12:31 -Blood Culture (Adults Only), peripheral from different site, or from device/port/PICC sd1 etc. if present ordered. 12:31 Hip,AP,LAT to include Pelvis Ordered. EDMS 12:31 Chest, 2 View (pa\E\lat) Ordered. EDMS 12:31 Lactic Acid (Borrego tube on ice) Ordered. EDMS 12:32 -Blood Culture Ordered. EDMS 12:32 -Blood Culture (Adults Only), peripheral from different site, or from device/port/PICC deg etc. if present complete. 12:33 BLOOD CULTURES Ordered. EDMS 13:09 Financial registration complete. lg 13:30 Liver Profile Reviewed. sd1 13:30 MED Profile Reviewed. sd1 13:30 Cardiac Injury Profile Reviewed. sd1 13:30 Thyroid Stimulating Hormone Reviewed. sd1 13:30 Troponin Reviewed. sd1 13:44 Lactic Acid (Borrego tube on ice) Reviewed. sd1 13:46 BED REQUEST+ADM ordered. EDMS 14:06 [facility] Payment Agreement was scanned into [employer] and attached to record. lg 14:33 Urine,Osmolality Ordered. EDMS 14:33 Urine Random,Sodium Ordered. EDMS 14:33 Urine Random,Creatinine Ordered. EDMS 14:33 Osmolality, Serum Ordered. EDMS 14:36 CT Head Without Contrast Ordered. EDMS 16:13 BASIC METABOLIC PROFILE Ordered. EDMS 16:15 Admission / Observation Status ordered. EDMS 16:15 CONSISTENT CARBOHYDRATES ordered. EDMS 16:22 BASIC METABOLIC PROFILE Ordered. EDMS 17:23 Osmolality, Serum Reviewed. sd1 17:23 BASIC METABOLIC PROFILE Reviewed. sd1 17:23 Hip,AP,LAT to include Pelvis Reviewed. sd1 17:23 Chest, 2 View (pa\E\lat) Reviewed. sd1 17:23 CT Head Without Contrast Reviewed. sd1 19:31 BASIC METABOLIC PROFILE Ordered. EDMS 19:31 BASIC METABOLIC PROFILE Ordered. EDMS 19:31 BASIC METABOLIC PROFILE Ordered. EDMS 19:31 BASIC METABOLIC PROFILE Ordered. EDMS 19:31 CBC WITH DIFFERENTIAL Ordered. EDMS 07/26 09:34 T-Sheet-- Draft Copy was scanned into Cloud[employer] and attached to record. gb Administered Medications: 07/25 13:04 Drug: NS 0.9% 500 ml [sodium chloride 0.9 % intravenous solution] Route: IV; Rate: kc3 bolus; Site: left forearm; Signatures: Dispatcher [employer] EDRonna Mcbride MD MD sd1 Odalis Rodriguez, RN RN kcs Cinthya Driver, [employer] Barnhardt, Allie, Reg Reg gb Jonathan Zambrano, Reg Reg lg Sivan Mas,RN RN kc3 Briseyda Umana,RN RN cf2 The chart was reviewed and I authenticate all verbal orders and agree with the evaluation and treatment provided.Corrections: (The following items were deleted from the chart) 16:25 16:13 BASIC METABOLIC PROFILE ordered. EDMS EDMS Attachments: 14:06 [facility] Payment Agreement lg 07/26 09:34 T-Sheet-- Draft Copy gb Chart Complete MTDD
--- NOTE | 2016-07-27 21:15 | EDDOCDS ---
"Physician Documentation [facility] Name: Lawson Zambrano Age: 75 yrs Sex: Male : 1940 Arrival Date: 07/25/2016 Time: 11:42 Bed 9 Private MD: Disposition: 07/25/16 15:05 Hospitalization ordered by Gt Jarquin for Inpatient Admission. Preliminary diagnosis are Bradycardia, unspecified, Hypo-osmolality and hyponatremia. - Bed requested for PCU. - Status is Inpatient Admission. cf2 - Condition is Stable. - Problem is new. - Symptoms are unchanged. Historical: - Allergies: PENICILLINS (Hives); - Home Meds: 1. amiodarone 400 mg Oral tab 1 tab once daily 2. ferrous sulfate 325 mg (65 mg iron) Oral tab twice a day 3. levofloxacin 750 mg Oral tab 1 tab once daily - finished 07/19/2016 4. Nitrostat 0.4 mg SL subl 1 tab every 5 minutes 5. Albuterol Inhl 2 puffs every 4 hours as needed 6. aspirin 81 mg Oral tab 1 tab once daily 7. atenolol 50 mg Oral tab 1 tab once daily 8. atorvastatin 20 mg oral tab 1 tab once daily 9. esomeprazole magnesium 40 mg Oral cpDR 1 cap once daily 10. fenofibrate 160 mg oral tab 1 tab nightly 11. finasteride 5 mg oral tab 1 tab once daily 12. Advair Diskus 250-50 mcg/dose Inhl dsdv 1 puff 2 times per day 13. insulin [id number] units/ml - 40 ml daily 14. insulin detemir 100 units/ml 60 units nightly 15. losartan-hydrochlorothiazide 100-25 mg oral tab 1 tab once daily 16. metformin 500 mg Oral tab 0.5 tab 2 times per day 17. Onglyza 5 mg oral tab 1 tab once daily 18. ranitidine HCl 150 mg Oral tab 1 tab 2 times per day 19. Vitamin D Oral 50,000 unit weekly 20. vitamin E 200 unit Oral tab daily - PMHx: CAD; Diabetes - IDDM: controlled; Emphysema; GERD; Hypercholesterolemia; Hypertension; Nicotine Abuse; Polydispsia; Stroke; - PSHx: Appendectomy; - Social history: Smoking status: Patient states former smoker of tobacco. No barriers to communication noted, The patient speaks fluent Finnish. - Family history: Not pertinent. - : The pt / caregiver states he / she is not on anticoagulants. Home medication list is obtained from a discharge med list. - Exposure Risk Screening:: None identified. Vital Signs: 07/25 11:51 BP 102 / 52; Pulse 56; Resp 20; Temp 96.7(TE); Pulse Ox 98% on 15% Non-rebreather mask; rn1 Weight 91.63 kg / 202.01 lbs; Height 5 ft. 6 in. (167.64 cm); Pain 9/10; 13:16 BP 98 / 56 Supine; Pulse 47; Pulse Ox 97% on R/A; kc3 13:16 BP 94 / 55 Sitting; Pulse 51; Pulse Ox 97% on R/A; kc3 13:16 BP 93 / 53 Standing; Pulse 46; kc3 13:25 Pulse 48 MON; Pulse Ox 97% ; kc3 13:26 BP 116 / 59 (auto/); kc3 13:41 BP 106 / 63 (auto/); kc3 13:41 Pulse 50 MON; Pulse Ox 71% ; kc3 13:56 BP 101 / 58 (auto/); kc3 13:56 Pulse 50 MON; Pulse Ox 98% ; kc3 14:10 Pulse 48 MON; Pulse Ox 96% ; kc3 14:11 BP 118 / 56 (auto/); kc3 14:26 BP 109 / 59 (auto/); kc3 14:26 Pulse 48 MON; Pulse Ox 96% ; kc3 14:41 BP 106 / 56 (auto/); kc3 14:41 Pulse 48 MON; Pulse Ox 97% ; kc3 14:56 BP 117 / 57 (auto/); kc3 14:56 Pulse 48 MON; Pulse Ox 98% ; kc3 15:11 BP 136 / 65 (auto/); kc3 15:12 Pulse 48 MON; Pulse Ox 97% ; kc3 15:26 BP 120 / 58 (auto/); kc3 15:26 Pulse 46 MON; Pulse Ox 96% ; kc3 15:40 Pulse 46 MON; Pulse Ox 97% ; kc3 15:41 BP 138 / 63 (auto/); kc3 15:56 BP 129 / 62 (auto/); kc3 15:56 Pulse 46 MON; Pulse Ox 98% ; kc3 16:11 BP 143 / 65 (auto/); kc3 16:11 Pulse 46 MON; Pulse Ox 99% ; kc3 16:26 BP 127 / 60 (auto/); kc3 16:27 Pulse 48 MON; Pulse Ox 98% ; kc3 16:40 Pulse 46 MON; Pulse Ox 99% ; kc3 16:41 BP 105 / 50 (auto/); kc3 16:56 BP 116 / 55 (auto/); kc3 16:56 Pulse 50 MON; Pulse Ox 100% ; kc3 17:10 Pulse 50 MON; Pulse Ox 99% ; kc3 17:11 BP 146 / 68 (auto/); kc3 17:25 Pulse 50 MON; Pulse Ox 99% ; kc3 17:26 BP 152 / 72 (auto/); kc3 17:41 BP 164 / 78 (auto/); kc3 17:42 Pulse 52 MON; Resp 20; Temp 98.1(TE); Pulse Ox 96% ; kc3 11:51 Body Mass Index 32.60 (91.63 kg, 167.64 cm) rn1 13:16 pt reports dizziness kc3 MDM: 11:44 ECG WITH READING ER PHYS+CARDIAG ordered. EDMS 11:59 Banana Carrier/Pulse Ox/q 15 min VS ordered. sd1 11:59 Accucheck ordered. sd1 11:59 IV Saline Lock ordered. sd1 11:59 Oxygen at 4L/Min NC or Home dosage ordered. sd1 11:59 Rhythm Strip to chart ordered. sd1 11:59 Orthostatic VS ordered. sd1 12:00 CBC with Diff Ordered. EDMS 12:00 Cardiac Injury Profile Ordered. EDMS 12:00 Liver Profile Ordered. EDMS 12:00 MED Profile Ordered. EDMS 12:01 Thyroid Stimulating Hormone Ordered. EDMS 12:01 Troponin Ordered. EDMS 12:19 Fingerstick Blood Sugar Ordered. EDMS 12:29 CBC with Diff Reviewed. sd1 12:29 Fingerstick Blood Sugar Reviewed. sd1 12:30 NS 0.9% 500 ml IV at bolus once ordered. sd1 12:31 -Blood Culture (Adults Only), peripheral from different site, or from device/port/PICC sd1 etc. if present ordered. 12:31 Hip,AP,LAT to include Pelvis Ordered. EDMS 12:31 Chest, 2 View (pa\\E\\lat) Ordered. EDMS 12:31 Lactic Acid (Borrego tube on ice) Ordered. EDMS 12:32 -Blood Culture Ordered. EDMS 12:32 -Blood Culture (Adults Only), peripheral from different site, or from device/port/PICC deg etc. if present complete. 12:33 BLOOD CULTURES Ordered. EDMS 13:09 Financial registration complete. lg 13:30 Liver Profile Reviewed. sd1 13:30 MED Profile Reviewed. sd1 13:30 Cardiac Injury Profile Reviewed. sd1 13:30 Thyroid Stimulating Hormone Reviewed. sd1 13:30 Troponin Reviewed. sd1 13:44 Lactic Acid (Borrego tube on ice) Reviewed. sd1 13:46 BED REQUEST+ADM ordered. EDMS 14:06 [facility] Payment Agreement was scanned into e|tab and attached to record. lg 14:33 Urine,Osmolality Ordered. EDMS 14:33 Urine Random,Sodium Ordered. EDMS 14:33 Urine Random,Creatinine Ordered. EDMS 14:33 Osmolality, Serum Ordered. EDMS 14:36 CT Head Without Contrast Ordered. EDMS 16:13 BASIC METABOLIC PROFILE Ordered. EDMS 16:15 Admission / Observation Status ordered. EDMS 16:15 CONSISTENT CARBOHYDRATES ordered. EDMS 16:22 BASIC METABOLIC PROFILE Ordered. EDMS 17:23 Osmolality, Serum Reviewed. sd1 17:23 BASIC METABOLIC PROFILE Reviewed. sd1 17:23 Hip,AP,LAT to include Pelvis Reviewed. sd1 17:23 Chest, 2 View (pa\\E\\lat) Reviewed. sd1 17:23 CT Head Without Contrast Reviewed. sd1 19:31 BASIC METABOLIC PROFILE Ordered. EDMS 19:31 BASIC METABOLIC PROFILE Ordered. EDMS 19:31 BASIC METABOLIC PROFILE Ordered. EDMS 19:31 BASIC METABOLIC PROFILE Ordered. EDMS 19:31 CBC WITH DIFFERENTIAL Ordered. EDMS 07/26 09:34 T-Sheet-- Draft Copy was scanned into e|tab and attached to record. gb Administered Medications: 07/25 13:04 Drug: NS 0.9% 500 ml [sodium chloride 0.9 % intravenous solution] Route: IV; Rate: kc3 bolus; Site: left forearm; Signatures: Dispatcher [employer] EDRonna Mcbride MD MD sd1 Odalis Rodriguez, RN RN kcs Cinthya Driver, [employer] Barnhardt, Allie, Reg Reg gb Jonathan Zambrano, Reg Reg lg Sivan Mas,RN RN kc3 Briseyda Umana,RN RN cf2 The chart was reviewed and I authenticate all verbal orders and agree with the evaluation and treatment provided.Corrections: (The following items were deleted from the chart) 16:25 16:13 BASIC METABOLIC PROFILE ordered. EDMS EDMS Attachments: 14:06 [facility] Payment Agreement lg 07/26 09:34 T-Sheet-- Draft Copy gb Chart Complete MTDD"
--- NOTE | 2016-07-27 21:15 | EDDOCDS ---
Nurse's Notes [facility] Name: Lawson Zambrano Age: 75 yrs Sex: Male : 1940 Arrival Date: 07/25/2016 Time: 11:42 Bed 9 Private MD: Diagnosis: Bradycardia, unspecified;Hypo-osmolality and hyponatremia Presentation: 07/25 11:46 Presenting complaint: EMS states: he has been dizzy - even sitting down - difficulty kcs getting BP via [facility] [employer] - had AL 2 weeks ago. Was sinus lurdes on the monitor. Per EMS - Went to [facility] and was told he needed surgery but he told them no. MDs checking him for GI bleed. EMS turned his NRB down to 10 but he de-sated and then turned it back up -to 15 l/min. Adult Sepsis Screening: The patient does not have new or worsening altered mentation. Patient's respiratory rate is less than 22. Systolic blood pressure is greater than 100. Patient has a qSOFA score of 0- Negative Sepsis Screen. Suicide/Homicide risk assessment- the patient denies having any suicidal and/or homicidal ideations and does not present with any other emotional, behavioral or mental health complaints. 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 Transition of care: patient was not received from another setting of care. Care prior to arrival: See EMS report. Saline lock initiated. Glucose check. 152 Oxygen administered by EMS. 11:46 Acuity: GLEN Level 2 kcs 11:46 Method Of Arrival: Ambulance kcs Triage Assessment: 12:21 General: Appears distressed, uncomfortable, Behavior is appropriate for age, kc3 cooperative, Family reports pt had "dizzy spell this morning." . Pain: Location: right leg Pain currently is 10 out of 10 on a pain scale. The patient is triaged at the bedside. See Assessment in Nurses Notes section of ED record. Neurological: Level of Consciousness is awake, alert, obeys commands, Oriented to person, place, time. Cardiovascular: Rhythm is sinus bradycardia. Respiratory: Airway is patent Respiratory effort is even, labored, Respiratory pattern is regular, symmetrical, Reports shortness of breath at rest. Derm: Skin is pink, warm & dry. Musculoskeletal: Circulation, motion, and sensation intact Reports pain in right leg reports this is a normal pain for him. Historical: - Allergies: PENICILLINS (Hives); - Home Meds: 1. amiodarone 400 mg Oral tab 1 tab once daily 2. ferrous sulfate 325 mg (65 mg iron) Oral tab twice a day 3. levofloxacin 750 mg Oral tab 1 tab once daily - finished 07/19/2016 4. Nitrostat 0.4 mg SL subl 1 tab every 5 minutes 5. Albuterol Inhl 2 puffs every 4 hours as needed 6. aspirin 81 mg Oral tab 1 tab once daily 7. atenolol 50 mg Oral tab 1 tab once daily 8. atorvastatin 20 mg oral tab 1 tab once daily 9. esomeprazole magnesium 40 mg Oral cpDR 1 cap once daily 10. fenofibrate 160 mg oral tab 1 tab nightly 11. finasteride 5 mg oral tab 1 tab once daily 12. Advair Diskus 250-50 mcg/dose Inhl dsdv 1 puff 2 times per day 13. insulin [id number] units/ml - 40 ml daily 14. insulin detemir 100 units/ml 60 units nightly 15. losartan-hydrochlorothiazide 100-25 mg oral tab 1 tab once daily 16. metformin 500 mg Oral tab 0.5 tab 2 times per day 17. Onglyza 5 mg oral tab 1 tab once daily 18. ranitidine HCl 150 mg Oral tab 1 tab 2 times per day 19. Vitamin D Oral 50,000 unit weekly 20. vitamin E 200 unit Oral tab daily - PMHx: CAD; Diabetes - IDDM: controlled; Emphysema; GERD; Hypercholesterolemia; Hypertension; Nicotine Abuse; Polydispsia; Stroke; - PSHx: Appendectomy; - Social history: Smoking status: Patient states former smoker of tobacco. No barriers to communication noted, The patient speaks fluent Greek. - Family history: Not pertinent. - : The pt / caregiver states he / she is not on anticoagulants. Home medication list is obtained from a discharge med list. - Exposure Risk Screening:: None identified. Screenin:20 Screening information is obtained from the patient. Fall risk: At risk due to prior 3 history of falls, The following interventions are performed due to a positive Fall Risk Screen: Fall Risk is added to Special Handling on the patient Summary Screen. A Fall Risk Bracelet was applied to the patient. Side Rails are placed in the up position. A Call Tavera is given with instruction to call for help when getting out of bed. Fall Alert bracelet is placed on the patient. Assistance ADL's: requires no assistance with activities of daily living. Abuse/DV Screen: The patient / caregiver reports he/she is: not in a situation that causes fear, pain or injury. Nutritional screening: No deficits noted. Advance Directives: Currently, there is a health care proxy, Samuel Zambrano. There is no active DNR order. There is a living will, and a copy is available at this time. home support is adequate. Assessment: 12:20 General: See triage assessment for initial assessment. . kc3 13:20 General: Appears in no apparent distress, comfortable, Behavior is appropriate for age, kc3 cooperative. Pain: Location: right leg. Neurological: Level of Consciousness is awake, alert, obeys commands, Oriented to person, place, time. Cardiovascular: Rhythm is sinus bradycardia. Respiratory: Airway is patent Respiratory effort is even, unlabored, Reports shortness of breath. Derm: Skin is intact, is healthy with good turgor. 14:30 General: Appears in no apparent distress, comfortable, Behavior is appropriate for age, kc3 cooperative. Neurological: Level of Consciousness is awake, alert, obeys commands, Oriented to person, place, time. Cardiovascular: Rhythm is sinus bradycardia. Respiratory: Airway is patent Respiratory effort is even, unlabored. Derm: Skin is intact, is healthy with good turgor, Skin is pale. 15:40 General: Appears in no apparent distress, comfortable, Behavior is appropriate for age, kc3 cooperative. Neurological: Level of Consciousness is awake, alert, obeys commands, Oriented to person, place, time. Cardiovascular: Rhythm is sinus bradycardia No ectopy. Respiratory: Airway is patent Respiratory effort is even, unlabored, Reports shortness of breath. Derm: Skin is pink, warm & dry. 16:39 General: Appears in no apparent distress, comfortable, Behavior is appropriate for age, kc3 cooperative. Pain: Location: right leg. Neurological: Level of Consciousness is awake, alert, obeys commands, Oriented to person, place, time. Cardiovascular: Rhythm is sinus bradycardia No ectopy. Respiratory: Respiratory effort is even, unlabored, Reports shortness of breath. Derm: Skin is pink, warm & dry. 17:54 General: Appears in no apparent distress, comfortable, Behavior is appropriate for age, kc3 cooperative. Pain: Denies pain. Neurological: Level of Consciousness is awake, alert, obeys commands, Oriented to person, place, time. Cardiovascular: Rhythm is sinus bradycardia. Respiratory: Airway is patent Respiratory effort is even, unlabored. Derm: Skin is intact, is healthy with good turgor, Skin is pink, warm & dry. Musculoskeletal: Circulation, motion, and sensation intact. 18:35 General: Appears in no apparent distress, comfortable, Behavior is appropriate for age, kc3 cooperative. General: Pt given diet tray. . Pain: Denies pain. Neurological: Level of Consciousness is awake, alert, obeys commands, Oriented to person, place, time. Cardiovascular: Rhythm is sinus bradycardia. Respiratory: Respiratory effort is even, unlabored. Derm: Skin is pink, warm & dry. Vital Signs: 11:51 BP 102 / 52; Pulse 56; Resp 20; Temp 96.7(TE); Pulse Ox 98% on 15% Non-rebreather mask; rn1 Weight 91.63 kg; Height 5 ft. 6 in. (167.64 cm); Pain 9/10; 13:16 BP 98 / 56 Supine; Pulse 47; Pulse Ox 97% on R/A; kc3 13:16 BP 94 / 55 Sitting; Pulse 51; Pulse Ox 97% on R/A; kc3 13:16 BP 93 / 53 Standing; Pulse 46; kc3 13:25 Pulse 48 MON; Pulse Ox 97% ; kc3 13:26 BP 116 / 59 (auto/); kc3 13:41 BP 106 / 63 (auto/); kc3 13:41 Pulse 50 MON; Pulse Ox 71% ; kc3 13:56 BP 101 / 58 (auto/); kc3 13:56 Pulse 50 MON; Pulse Ox 98% ; kc3 14:10 Pulse 48 MON; Pulse Ox 96% ; kc3 14:11 BP 118 / 56 (auto/); kc3 14:26 BP 109 / 59 (auto/); kc3 14:26 Pulse 48 MON; Pulse Ox 96% ; kc3 14:41 BP 106 / 56 (auto/); kc3 14:41 Pulse 48 MON; Pulse Ox 97% ; kc3 14:56 BP 117 / 57 (auto/); kc3 14:56 Pulse 48 MON; Pulse Ox 98% ; kc3 15:11 BP 136 / 65 (auto/); kc3 15:12 Pulse 48 MON; Pulse Ox 97% ; kc3 15:26 BP 120 / 58 (auto/); kc3 15:26 Pulse 46 MON; Pulse Ox 96% ; kc3 15:40 Pulse 46 MON; Pulse Ox 97% ; kc3 15:41 BP 138 / 63 (auto/); kc3 15:56 BP 129 / 62 (auto/); kc3 15:56 Pulse 46 MON; Pulse Ox 98% ; kc3 16:11 BP 143 / 65 (auto/); kc3 16:11 Pulse 46 MON; Pulse Ox 99% ; kc3 16:26 BP 127 / 60 (auto/); kc3 16:27 Pulse 48 MON; Pulse Ox 98% ; kc3 16:40 Pulse 46 MON; Pulse Ox 99% ; kc3 16:41 BP 105 / 50 (auto/); kc3 16:56 BP 116 / 55 (auto/); kc3 16:56 Pulse 50 MON; Pulse Ox 100% ; kc3 17:10 Pulse 50 MON; Pulse Ox 99% ; kc3 17:11 BP 146 / 68 (auto/); kc3 17:25 Pulse 50 MON; Pulse Ox 99% ; kc3 17:26 BP 152 / 72 (auto/); kc3 17:41 BP 164 / 78 (auto/); kc3 17:42 Pulse 52 MON; Resp 20; Temp 98.1(TE); Pulse Ox 96% ; kc3 11:51 Body Mass Index 32.60 (91.63 kg, 167.64 cm) rn1 13:16 pt reports dizziness kc3 Vitals: 12:22 Log In Time N/A - ambulance arrival. kc3 ED Course: 11:42 Patient visited by Cinthya Driver, Powerplant Operator. deg 11:42 Patient moved to Waiting deg 11:43 Lyndsey Rivas, RN is Primary Nurse. deg 11:43 Patient moved to 9 deg 11:50 Triage Initiated kcs 12:13 Ronna Rojas MD is Attending Physician. sd1 12:20 Patient visited by Ronna Rojas MD. sd1 12:21 The patient / caregiver is instructed regarding the plan of care and ED course. kc3 12:21 Maintain field IV. Dressing intact. Good blood return noted. Site clean & dry. Gauge & kc3 site: 20g left forearm. 12:23 Patient visited by Sivan Mas,MIRANDA. kc3 12:57 Patient visited by Sivan Mas,MIRANDA. kc3 13:04 -Blood Culture Sent. kc3 13:04 Lactic Acid (Borrego tube on ice) Sent. kc3 13:16 BLOOD CULTURES Sent. kc3 13:34 Patient visited by Sivan Mas,MIRANDA. kc3 14:05 Patient name changed from Lawson\\S\\G\\S\\Alberry\\S\\ to Lawson\\S\\ \\S\\Alberry. EDMS 14:06 [facility] Payment Agreement was scanned into [employer] and attached to record. lg 14:25 Patient visited by Sivan Mas,MIRANDA. kc3 14:58 Patient visited by Sivan Mas RN. kc3 15:05 Gt Jarquin is Hospitalizing Provider. sd1 15:26 Chest, 2 View (pa\\E\\lat) Returned. EDMS 15:26 Hip,AP,LAT to include Pelvis Returned. EDMS 16:20 CT Head Without Contrast Returned. EDMS 16:41 No procedures done that require assistance. kc3 18:24 Patient visited by Elaine Asher PCA. bnb 18:24 Diet: Patient given regular meal. Tolerated well. bnb 19:11 Urine Random,Creatinine Sent. kc3 19:11 Urine Random,Sodium Sent. kc3 19:11 Urine,Osmolality Sent. kc3 19:16 Primary Nurse role handed off by Lyndsey Rivas, RN cf2 19:16 Briseyda Umana,MIRANDA is Primary Nurse. cf2 19:17 Patient visited by Briseyda Umana,MIRANDA. cf2 19:30 Patient visited by Briseyda Umana,MIRANDA. cf2 20:14 Patient visited by Briseyda Umana,MIRANDA. cf2 07/26 09:34 T-Sheet-- Draft Copy was scanned into [employer] and attached to record. gb Administered Medications: 07/25 13:04 Drug: NS 0.9% 500 ml [sodium chloride 0.9 % intravenous solution] Route: IV; Rate: kc3 bolus; Site: left forearm; Order Results: Lab Order: CBC with Diff; SPEC'M 07/25/16 12:09 Test: WHITE BLOOD COUNT; Value: 4.2; Range: 4.0-10.0; Units: K/mm3; Status: F Test: RED BLOOD COUNT; Value: 3.13; Range: 4.30-6.10; Abnormal: Below low normal; Units: M/mm3; Status: F Test: HEMOGLOBIN; Value: 9.8; Range: 14.0-18.0; Abnormal: Below low normal; Units: g/dl; Status: F Test: HEMATOCRIT; Value: 27.8; Range: 42.0-52.0; Abnormal: Below low normal; Units: %; Status: F Test: MEAN CORPUSCULAR VOLUME; Value: 88.8; Range: 80.0-96.0; Units: fl; Status: F Test: MEAN CORPUSCULAR HEMOGLOBIN; Value: 31.2; Range: 27.0-33.0; Units: pg; Status: F Test: MEAN CORPUSCULAR HGB CONC; Value: 35.1; Range: 32.0-36.5; Units: g/dl; Status: F Test: RED CELL DISTRIBUTION WIDTH; Value: 14.7; Range: 11.5-14.5; Abnormal: Above high normal; Units: %; Status: F Test: PLATELET COUNT, AUTOMATED; Value: 195; Range: 150-450; Units: k/mm3; Status: F Test: NEUTROPHILS %; Value: 68.5; Range: 36.0-66.0; Abnormal: Above high normal; Units: %; Status: F Test: LYMPH %; Value: 19.5; Range: 24.0-44.0; Abnormal: Below low normal; Units: %; Status: F Test: MONO %; Value: 6.2; Range: 0.0-5.0; Abnormal: Above high normal; Units: %; Status: F Test: EOS %; Value: 1.8; Range: 0.0-3.0; Units: %; Status: F Test: BASO %; Value: 0.6; Range: 0.0-1.0; Units: %; Status: F Test: LARGE UNSTAINED CELL %; Value: 3.3; Range: 0.0-4.0; Units: %; Status: F Test: NEUTROPHILS #; Value: 2.9; Range: 1.8-7.7; Units: K/mm3; Status: F Test: LYMPH #; Value: 0.8; Range: 1.5-4.5; Abnormal: Below low normal; Units: K/mm3; Status: F Test: MONO #; Value: 0.3; Range: 0.0-0.8; Units: K/mm3; Status: F Test: EOS #; Value: 0.1; Range: 0.0-0.50; Units: K/mm3; Status: F Test: BASO #; Value: 0.0; Range: 0.0-0.2; Units: K/mm3; Status: F Test: LARGE UNSTAINED CELL #; Value: 0.1; Range: 0.0-0.4; Units: K/mm3; Status: F Lab Order: Cardiac Injury Profile; SPEC'M 07/25/16 12:09 Test: CPK CREATINE PHOSPHOKINASE; Value: 84; Range: 39-308; Units: U/L; Status: F Test: CK-MB VALUE MASS; Value: 3.3; Range: 0.0-3.6; Units: NG/ML; Status: F Test: MB/CK RELATIVE INDEX; Value: 3.92; Range: < OR =4; Status: F Test Note: ; DIAGNOSIS CRITERIA MMB ng/ml Relative Index (RI) NON-AMI < or = 5 N/A B[place] ZONE > 5 < or = 4 AMI > 5 > 4 Lab Order: Liver Profile; SPEC'M 07/25/16 12:09 Test: AST/SGOT; Value: 20; Range: 15-37; Units: U/L; Status: F Test: ALT/SGPT; Value: 36; Range: 12-78; Units: U/L; Status: F Test: ALKALINE PHOSPHATASE; Value: 62; Range: 45-117; Units: U/L; Status: F Test: BILIRUBIN,TOTAL; Value: 0.7; Range: 0.2-1.0; Units: MG/DL; Status: F Test: BILIRUBIN,DIRECT; Value: 0.2; Range: 0.0-0.2; Units: MG/DL; Status: F Test: TOTAL PROTEIN; Value: 6.2; Range: 6.4-8.2; Abnormal: Below low normal; Units: GM/DL; Status: F Test: ALBUMIN; Value: 3.1; Range: 3.2-5.2; Abnormal: Below low normal; Units: GM/DL; Status: F Test: ALBUMIN/GLOBULIN RATIO; Value: 1.00; Range: 1.00-1.93; Status: F Lab Order: MED Profile; SPEC'07/25/16 12:09 Test: GLUCOSE, FASTING; Value: 120; Range: 83-110; Abnormal: Above high normal; Units: MG/DL; Status: F Test: BLOOD UREA NITROGEN; Value: 23; Range: 7-18; Abnormal: Above high normal; Units: MG/DL; Status: F Test: CREATININE FOR GFR; Value: 1.43; Range: 0.70-1.30; Abnormal: Above high normal; Units: MG/DL; Status: F Test: GLOMERULAR FILTRATION RATE; Value: 51.3; Range: >42; Status: F Test: SODIUM LEVEL; Value: 123; Range: 136-145; Abnormal: Below low normal; Units: MEQ/L; Status: F Test: POTASSIUM SERUM; Value: 4.8; Range: 3.5-5.1; Units: MEQ/L; Status: F Test: CHLORIDE LEVEL; Value: 89; Range: 98-107; Abnormal: Below low normal; Units: MEQ/L; Status: F Test: CARBON DIOXIDE LEVEL; Value: 24; Range: 21-32; Units: MEQ/L; Status: F Test: ANION GAP; Value: 10; Range: 8-16; Units: MEQ/L; Status: F Test: CALCIUM LEVEL; Value: 8.2; Range: 8.8-10.2; Abnormal: Below low normal; Units: MG/DL; Status: F Test Note: ; Units are mL/min/1.73 m2 Chronic Kidney Disease Staging per NKF: Stage I & II GFR >=60 Normal to Mildly Decreased Stage III GFR 30-59 Moderately Decreased Stage IV GFR 15-29 Severely Decreased Stage V GFR <15 Very Little GFR Left ESRD GFR <15 on [facility] Lab Order: Thyroid Stimulating Hormone; SPEC'07/25/16 12:09 Test: THYROID STIMULATING HORMONE; Value: 0.875; Range: 0.358-3.740; Units: uIU/ML; Status: F Lab Order: Troponin; SPEC'M 07/25/16 12:09 Test: TROPONIN I; Value: 0.10; Range: < 0.10; Units: NG/ML; Status: F Test Note: ; Troponin I Reference Interval for Siemens [place] LOCI: 99th Percentile= 0.00-0.045 ng/ml Risk Stratification: <= 0.10 ng/ml Decreased Risk for Adverse Clinical Events. 0.10-1.50 ng/ml Increased Risk for Adverse Clinical Events. Evaluation of additional criterion and/or repeat testing in 2-6 hours is suggested to rule out myocardial damage. >= 1.50 ng/ml Indicative of Myocardial Injury. Lab Order: Fingerstick Blood Sugar; [facility] 07/25/16 12:06 Test: BEDSIDE GLUCOSE; Value: 147; Range: 83-110; Abnormal: Above high normal; Units: MG/DL; Status: F Lab Order: Lactic Acid (Borrego tube on ice); [facility] 07/25/16 12:55 Test: LACTIC ACID LEVEL, LACTATE; Value: 2.0; Range: 0.4-2.0; Units: MMOL/L; Status: F Lab Order: Urine,Osmolality; 07/25/16 19:10 Test: OSMOLALITY URINE; Value: 452; Range: 500-800; Abnormal: Below low normal; Units: MOSM/KG; Status: F Lab Order: Urine Random,Sodium; 07/25/16 19:10 Test: SODIUM,RANDOM URINE; Value: 76; Units: MEQ/L; Status: F Lab Order: Urine Random,Creatinine; 07/25/16 19:10 Test: CREATININE,RANDOM URINE; Value: 110.0; Units: MG/DL; Status: F Lab Order: Osmolality, Serum; 07/25/16 15:37 Test: OSMOLALITY SERUM; Value: 259; Range: 280-301; Abnormal: Below low normal; Units: MOSM/KG; Status: F Lab Order: BASIC METABOLIC PROFILE; [facility] 07/25/16 15:37 Test: GLUCOSE, FASTING; Value: 125; Range: 83-110; Abnormal: Above high normal; Units: MG/DL; Status: F Test: BLOOD UREA NITROGEN; Value: 24; Range: 7-18; Abnormal: Above high normal; Units: MG/DL; Status: F Test: CREATININE FOR GFR; Value: 1.34; Range: 0.70-1.30; Abnormal: Above high normal; Units: MG/DL; Status: F Test: SODIUM LEVEL; Range: 136-145; Units: MEQ/L; Status: I Test: POTASSIUM SERUM; Range: 3.5-5.1; Units: MEQ/L; Status: I Test: CHLORIDE LEVEL; Range: 98-107; Units: MEQ/L; Status: I Test: CARBON DIOXIDE LEVEL; Range: 21-32; Units: MEQ/L; Status: I Test: ANION GAP; Range: 8-16; Units: MEQ/L; Status: I Test: CALCIUM LEVEL; Range: 8.8-10.2; Units: MG/DL; Status: I Test: GLOMERULAR FILTRATION RATE; Value: 55.3; Range: >42; Status: F Test: SODIUM LEVEL; Value: 125; Range: 136-145; Abnormal: Below low normal; Units: MEQ/L; Status: F Test: POTASSIUM SERUM; Value: 5.2; Range: 3.5-5.1; Abnormal: Above high normal; Units: MEQ/L; Status: F Test: CHLORIDE LEVEL; Value: 92; Range: 98-107; Abnormal: Below low normal; Units: MEQ/L; Status: F Test: CARBON DIOXIDE LEVEL; Value: 23; Range: 21-32; Units: MEQ/L; Status: F Test: ANION GAP; Value: 10; Range: 8-16; Units: MEQ/L; Status: F Test: CALCIUM LEVEL; Value: 8.0; Range: 8.8-10.2; Abnormal: Below low normal; Units: MG/DL; Status: F Test Note: ; Units are mL/min/1.73 m2 Chronic Kidney Disease Staging per NKF: Stage I & II GFR >=60 Normal to Mildly Decreased Stage III GFR 30-59 Moderately Decreased Stage IV GFR 15-29 Severely Decreased Stage V GFR <15 Very Little GFR Left ESRD GFR <15 on [facility] Radiology Order: Hip,AP,LAT to include Pelvis Test: Hip,AP,LAT to include Pelvis REASON FOR EXAMINATION: Trauma; PELVIS RIGHT HIP:; ; Three views.; ; HISTORY: Trauma.; ; FINDINGS: AP view of the pelvis and AP and frog-leg views of the right hip are; obtained. No pelvic or hip fracture is seen. No sacral fracture is noted.; There is fairly prominent vascular calcification.; ; IMPRESSION: No fracture seen.; ; ; Signed by; Abe Lee MD 07/25/2016 03:10 P; Radiology Order: Chest, 2 View (pa\\E\\lat) Test: Chest, 2 View (pa\\E\\lat) REASON FOR EXAMINATION: Cough; CHEST X-RAY:; ; Two views.; ; HISTORY: Cough.; ; Comparison chest x-rays from July 17, 2016.; ; FINDINGS: There is a patchy area of increased density in the left base along the; left heart border on today's chest x-ray. This may be atelectasis or early; infiltrate. Pleural angles are sharp. Lung espinoza are otherwise clear. Heart; is not enlarged.; ; IMPRESSION:; ; Patchy somewhat linear density left base. Atelectasis versus infiltrate. There; is slight blunting of one of the posterior pleural angles on lateral film as; well.; ; ; Signed by; Abe Lee MD 07/25/2016 03:10 P; Radiology Order: CT Head Without Contrast Test: CT Head Without Contrast REASON FOR EXAMINATION: Trauma; CT HEAD WITHOUT CONTRAST:; ; HISTORY: Trauma.; ; COMPARISON: 06/16/2016.; ; Areas of decreased attentuation are present in the right basal ganglia. These; represent old lacunar infarctions. Areas of decreased attentuation are present; in the periventricular and subcortical white matter. This represents small; vessel ischemic disease. There is no intraparenchymal hemorrhage, mass, or; midline shift. The ventricular system and cortical sulci are dilated consistent; with moderate volume loss. There is no extracerebral collection. Mucosal; thickening is present in the left maxillary sinus.; ; IMPRESSION:; ; 1. Old right basal ganglia lacunar infarctions.; ; 2. Small vessel ischemic disease.; ; 3. Moderate volume loss.; ; ; Signed by; Cam Jones MD 07/25/2016 03:42 P; Outcome: 15:05 Decision to Hospitalize by Provider. sd1 17:57 CT Study completed. kc3 20:14 Discharge Assessment: Patient awake, alert and oriented x 3. No cognitive and/or cf2 functional deficits noted. Patient verbalized understanding of disposition instructions. Patient patient administered narcotics - no. The following High Risk Discharge criteria are identified: None. Admitted to PCU. Condition: unchanged. Property :Personal belongings accompany Pt. 20:14 Patient left the ED. cf2 Signatures: Dispatcher [employer] EDMS Ronna Rojas MD MD sd1 Odalis Rodriguez, RN RN kcs Cinthya Driver, Powerplant Operator Unit deg Allie Raymond, Reg Reg gb Jonathan Zambrano, Reg Reg lg Gary Chaidez rn1 Sivan Mas RN RN kc3 Briseyda Umana RN RN cf2 Elaine Asher, SANDEE MODEL MAKER SCALE bnb Corrections: (The following items were deleted from the chart) 17:58 17:42 Pulse 52bpm; Monitor; Pulse Ox 96%; kc3 kc3 Chart Complete MTDD
== END 2016-07-26 14:15 | disposition hospice, home (50) | DRG 281 ==
LOC: M ED 11:42 → M ED INP 16:02 → M PCU 20:19
PROVIDERS: ADMIT Internal Medicine; ATTEND Family Medicine
DX: R00.1 Bradycardia, unspecified (principal); I21.3 ST elevation (STEMI) myocardial infarction of unspecified site; E87.1 Hypo-osmolality and hyponatremia; N17.9 Acute kidney failure, unspecified; E11.9 Type 2 diabetes mellitus without complications; I25.10 Atherosclerotic heart disease of native coronary artery without angina pectoris; I48.91 Unspecified atrial fibrillation; R55 Syncope and collapse; I25.5 Ischemic cardiomyopathy; K21.9 Gastro-esophageal reflux disease without esophagitis; J44.9 Chronic obstructive pulmonary disease, unspecified; I49.5 Sick sinus syndrome; D64.9 Anemia, unspecified; I10 Essential (primary) hypertension; E78.5 Hyperlipidemia, unspecified; Z86.73 Personal history of transient ischemic attack (TIA), and cerebral infarction without residual deficits; Z99.81 Dependence on supplemental oxygen; Z87.891 Personal history of nicotine dependence; Z79.82 Long term (current) use of aspirin; Z79.4 Long term (current) use of insulin; Z79.899 Other long term (current) drug therapy